=== PATIENT | male | born 1960 | race Caucasian/White ===

== ENCOUNTER 2019-02-10 22:08 | Inpatient (IN) | payer BC ==
[~2019-02-10] VITALS: Ht 190.5 cm; Wt 172.4 kg
--- OUTSIDE RECORDS SUMMARY | 2019-02-10 22:10 | XMS REPORT ---
Author Author [facility] Address Unknown Phone Unavailable Care Team Providers Care Transmission Operator Name Role Phone DR BERTA GRAVES Unavailable Unavailable Problems This patient has no known problems. Allergies, Adverse Reactions, Alerts This patient has no known allergies or adverse reactions. Medications This patient has no known medications. Encounters Start Date/Time End Date/Time Encounter Type Admission Type Attending [facility] Care Facility Care Department Encounter ID 2017-06-10 05:07:00 2017-06-10 09:30:00 Outpatient BERTA STAPLES [facility] [id number] Results Test Description Test Time Test Comments Text Results Atomic Results Result Comments GLUCOMETER GLUCOSE- LAB USE ONLY 2017-06-10 09:49:00 GLUCOMETER (test code=GMG) 116 mg/dL 70-100 Meter ID: [id number]: [id number] SANDRA JESSICA GLUCOMETER GLUCOSE- LAB USE [id number] 05:30:00* Test Item Value Reference Range Comments GLUCOMETER (test code=GMG) 118 mg/dL 70-100 Meter ID: [id number]: [id number] CARL GOETZ
--- NOTE | 2019-02-10 23:45 | Diagnostic Imaging Report ---
FOOT RIGHT COMPLETE - 3 views HISTORY: Pain COMPARISON: None available. FINDINGS: Erosive changes at the fifth tarsometatarsal joint and base of the third and fourth metatarsals. Increased sclerosis of the adjacent metatarsals. Lateral subluxation is seen on frontal view at the level of the proximal second through fifth metatarsals. Soft tissue swelling, especially in the mid and forefoot. Mild emphysema of the dorsal aspect of the forefoot. Plantar calcaneal enthesophyte. Vascular calcifications. IMPRESSION: Erosive changes of the midfoot at the level of the base of the third through fifth metatarsals, concerning for osteomyelitis. There is also lateral subluxation seen on frontal view at the level of the proximal second through fifth metatarsals, concerning for Lisfranc fracture deformity. Signed by: Dr. Catracho Arevalo MD on 02/10/2019 11:42 PM
[2019-02-11] MEDS ORDERED: VANCOMYCIN 1GM/NS 250 ML 250 ML IV STA (00:16)
[2019-02-11] MEDS ORDERED: LEVOFLOXACIN 500MG/D5W 100ML 100 ML IV STA (00:16)
[2019-02-11] MEDS ORDERED: ONDANSETRON HCL INJ 2MG/ML 2ML 2 MG/ML VIAL IV STA (00:16)
[2019-02-11] MEDS ORDERED: MORPHINE SULFATE INJ 4 MG/ML INJ 1ML IV STA (00:16)
[2019-02-11 00:37] LABS: BASOPHILS # (AUTO) 0.1 (0.0-0.1); BASOPHILS % 0.4 % (0.0-1.0); EOSINOPHILS # (AUTO) 0.2 (0.0-0.4); EOSINOPHILS % 1.1 % (0.0-6.0); HEMATOCRIT 40.9 % (38.2-49.6); HEMOGLOBIN 13.3 g/dL (14.0-18.0); LYMPHOCYTES # (AUTO) 1.9 (1.0-3.2); LYMPHOCYTES % 12.5 % (18.0-39.1); MEAN CORPUSCULAR HEMOGLOBIN 27.4 pg (28-32); MEAN CORPUSCULAR HGB CONC 32.5 g/dL (31-35); MEAN CORPUSCULAR VOLUME 84.3 fL (81-99); MONOCYTES # (AUTO) 1.9 (0.2-0.8); NEUTROPHILS # (AUTO) 10.7 (2.1-6.9); NEUTROPHILS % 71.7 % (38.7-80.0); PLATELET COUNT 277 x10e3/uL (140-360); RED BLOOD COUNT 4.85 x10e6/uL (4.3-5.7); RED CELL DISTRIBUTION WIDTH 13.3 % (11.7-14.4)
[2019-02-11] MEDS ORDERED: MORPHINE SULFATE INJ 4 MG/ML INJ 1ML ONE (00:43)
[2019-02-11 00:55] LABS: ANION GAP 17.8 mmol/L (8-16); CALCIUM 10.4 mg/dL (8.4-10.2); CREATININE, SERUM 1.43 mg/dL (0.72-1.25); POTASSIUM 3.8 mmol/L (3.5-5.1)
--- NOTE | 2019-02-11 00:55 | NUR ---
PATIENT STARTED TO C/O OF HAVING SOME ITCHYNESS SECONDARY TO MORPHINE BEING GIVEN, ASKED DR. URRUTIA FOR BENADRYL FOR POSS ADVERSE EFFECTS OF MORPHINE, PT ALSO HAD FEW AREAS OF REDNESS TO SITES WHERE SCRATCHING, VANCOMYCIN STARTED SHORTLY AFTER MORPHINE GIVEN, EKG PERFORMED PT STATED CHEST FEELS FUNNY, AFTER 5 MORE MINIUTES, ITCHYNESS GOT WORSE AND REDNESS BEGAN TO SPREAD TO UP ARM AND DOWN LEFT INNER THIGH AND RLE WELL, VANCOMYCIN IMMEDIATELY STOPPED AND MD AT BEDSIDE FOR POSSIBLE REACTION TO EITHER MORPHINE OR VANCOMYCIN, MD FEELS POSSIBE REACTION TO VANCOMYCIN "RADHA SYNDROME" BUT STATES HAVING DIFFICULTY BREATHING, LIKE UNABLE TO TAKE BREATHS, MD AT BEDSIDE AUSCULTATED CHEST AND NO ADVENTITOUS BREATH SOUNDS NOTED, PT'S CHILLS WORSENING AND BECOMING TACHYPNEIC, ORDER GIVEN FOR SOLU MEDROL 125MG, VITALS STABLE BUT SECONDARY TO RAPID BREATHING AND POOR O2 SAT RECORDING, PT PLACED ON A NON-REBREATHER, SATS IMPROVED IMMEDIATELY, PT MOVED TO ROOM 1 FOR FURTHER EVAL, ALL STAFF IN ROOM WITH PT AND ATIVAN 1MG GIVEN TO SEE IF HELPS WITH CHILLS, VITALS REMAIN STABLE BUT PT STILL STATING LOTS OF CHILLS AND STILL SAYING CHEST HURTS, ADDITIONAL BENADRYL 25MG GIVEN, AFTER APROX 30 MINUTES OF SYMPTOMS TO VANCOMYCIN REACTION, PT MUCH IMPROVED WITH SATS AT 100% ON 2LNC, BP STABLE, AND HR NOT TACHY. WILL CONT TO MONITOR.
[2019-02-11] MEDS ORDERED: DIPHENHYDRAMINE HCL INJ 50 MG/ML VIAL ONE ×2 (01:02→02:00)
[2019-02-11] MEDS ORDERED: METHYLPREDNISOLONE SOD SUCC 125 MG/2ML VIAL ONE (01:27)
[2019-02-11] MEDS ORDERED: FAMOTIDINE 20 MG/2 ML VIAL IV STA (01:28)
[2019-02-11] MEDS ORDERED: SODIUM CHLORIDE 0.9% 500ML 500 ML IV ONE (01:30)
[2019-02-11] MEDS ORDERED: METHYLPREDNISOLONE SOD SUCC 125 MG/2ML VIAL IV ONE (01:30)
[2019-02-11] MEDS ORDERED: ASPIRIN 81 MG CHEW TAB PO ONE (01:45)
[2019-02-11] MEDS ORDERED: LORAZEPAM INJ 2 MG/ML VIAL ONE (01:50)
[2019-02-11 01:56] LABS: INR 1.18; PROTHROMBIN TIME 15.6 seconds (11.9-14.5)
[2019-02-11 01:57] LABS: PARTIAL THROMBOPLASTIN TIME 28.8 seconds (23.8-35.5)
[2019-02-11 02:09] LABS: CREATINE KINASE MB 1.1 ng/mL (0-5.0)
[2019-02-11] MEDS ORDERED: DEXTROSE 50% SYRINGE 50 ML IV PRN (02:15)
--- NOTE | 2019-02-11 02:38 | Diagnostic Imaging Report ---
EXAMINATION: CHEST SINGLE (PORTABLE) INDICATION: ^sob ^[id number] ^0203 ^Y COMPARISON: None FINDINGS: AP view TUBES and LINES: None. LUNGS: Limited by body habitus. Lungs are well inflated. Mild central vascular congestion. PLEURA: No significant pleural effusion or pneumothorax. HEART AND MEDIASTINUM: The cardiomediastinal silhouette is enlarged. BONES AND SOFT TISSUES: No acute osseous lesion. Soft tissues are unremarkable. UPPER ABDOMEN: No free air under the diaphragm. IMPRESSION: Limited study due to body habitus. Enlarged cardiomediastinal silhouette and mild central vascular congestion. Signed by: Dr. Catracho Arevalo MD on 02/11/2019 2:34 AM
[2019-02-11] MEDS ORDERED: LORAZEPAM INJ 2 MG/ML VIAL IV ONE (03:15)
[2019-02-11] MEDS ORDERED: DIPHENHYDRAMINE HCL INJ 50 MG/ML VIAL IV ONE ×2 (03:15)
[2019-02-11] MEDS: LEVOFLOXACIN 500MG/D5W 100ML 100 ML IV SCH (04:05)
--- NOTE | 2019-02-11 04:38 | Diagnostic Imaging Report ---
EXAM: CT Chest WITH contrast (PE Protocol) INDICATION: ^PE PROTOCOL ^[id number] ^0300 ^Y COMPARISON: Same day chest radiograph. TECHNIQUE: Chest was scanned utilizing a multidetector helical scanner from the lung apex through the level of the diaphragm after administration of IV contrast. Thin section reconstructions were obtained with special concentration on the pulmonary arteries. Coronal and sagittal reformations were obtained. Dose modulation, iterative reconstruction, and/or weight based adjustment of the mA/kV was utilized to reduce the radiation dose to as low as reasonably achievable. Pulmonary embolism protocol was performed. IV CONTRAST: 100 mL of Omnipaque 370 COMPLICATIONS: None RADIATION DOSE: Total DLP: 692.53 mGy*cm Estimated effective dose: (DLP x 0.014 x size factor) mSv CTDIvol has been reviewed. It is below the limits set by the Radiation Protocol Committee (RPC). FINDINGS: LINES/ TUBES: None. LUNGS AND AIRWAYS: Limited evaluation due to respiratory motion. No filling defect is identified within the pulmonary arteries to the segmental level. Right lower lobe calcified granuloma (series 3, image 56). There are additional left upper and lower lobe calcified granulomas. Airways are normal. PLEURA: The pleural spaces are clear. HEART AND MEDIASTINUM: The thyroid gland is normal. No mediastinal, hilar or axillary lymphadenopathy. Calcified mediastinal and left hilar lymph nodes. The heart is normal in size.. There is no pericardial effusion. . Main pulmonary artery measures 3.4 cm in diameter and the ascending aorta measures 3.7 cm. UPPER ABDOMEN: Partially seen splenomegaly. Otherwise, unremarkable. BONES: The visualized bony thorax is within normal limits. SOFT TISSUES: Unremarkable. IMPRESSION: No pulmonary emboli. Evidence of prior granulomatous disease. Signed by: Dr. Catracho Arevalo MD on 02/11/2019 4:35 AM
[2019-02-11] MEDS: HYDROMORPHONE 1MG/1ML INJ IV PRN ×5 (05:43→22:59)
[2019-02-11] MEDS: SODIUM CHLORIDE 0.9% 1000ML 1,000 ML IV SCH ×3 (05:43→15:54)
[2019-02-11] MEDS ORDERED: METHYLPREDNISOLONE SOD SUCC 40 MG/ML VIAL 1ML IV SCH (06:00)
[2019-02-11] MEDS ORDERED: DIPHENHYDRAMINE HCL INJ 50 MG/ML VIAL IV SCH (06:00)
[2019-02-11 07:28] VITALS: BP 133/66
[2019-02-11 07:29] VITALS: BP 133/66
[2019-02-11] MEDS: INSULIN REGULAR, HUMAN 100 UNIT/1 ML 3ML VIAL SQ SCH ×4 (07:32→20:36)
--- NOTE | 2019-02-11 08:18 | NUR ---
PT STABLE, RESTING IN BED.
[2019-02-11] MEDS: FAMOTIDINE 20 MG/2 ML VIAL IV SCH ×2 (09:07→15:54)
[2019-02-11] MEDS: MUPIROCIN 2% OINT 22 GM TUBE TOP SCH ×2 (10:25→15:54)
[2019-02-11 10:39] LABS: CREATINE KINASE MB 3.5 ng/mL (0-5.0)
--- NOTE | 2019-02-11 12:00 | NUR ---
dr glass did bedside I&D on rt foot. wound care done.
[2019-02-11] MEDS ORDERED: METHYLPREDNISOLONE SOD SUCC 40 MG/ML VIAL 1ML IV PRN (13:00)
--- NOTE | 2019-02-11 13:33 | Consultation ---
DATE OF CONSULTATION: 02/11/2019 REASON FOR CONSULTATION: Ulceration with the patient being diabetic. HISTORY OF PRESENT ILLNESS: This is a pleasant 58-year-old white male, who is very well known to me, fell approximately several months ago and has a Lisfranc fracture, has a history of diabetic neuropathy with a Charcot foot deformity. The patient developed an ulceration approximately several days ago and started having some fever and chills. Currently, in the hospital, getting IV antibiotics. He denies any history of fever, chills, nausea, or vomiting. PAST MEDICAL HISTORY: Remarkable for insulin-dependent diabetes x10 years. PAST SURGICAL HISTORY: Remarkable for heart catheterization by Dr. Mcnulty 5 weeks ago, has had multiple abdomen surgeries for MRSA. ALLERGIES: TO LATEX, PHENERGAN, AND MORPHINE. CURRENT MEDICATIONS: Include IV levofloxacin and IV vancomycin. SOCIAL HISTORY: Denies any smoking, drinking, or recreational drug use. Lives with his , has 4 kids. FAMILY HISTORY: Remarkable for diabetes. REVIEW OF SYSTEMS: CARDIAC: He is denying any palpitations or arrhythmias. RESPIRATORY: Denies any shortness of breath or productive cough. GASTROINTESTINAL: Denies any diarrhea or constipation. GENITOURINARY: Denies any problems voiding. VITAL SIGNS: Afebrile, pulse rate 80, respirations 18, blood pressure 133/66, and O2 saturation 100%. LABORATORY DATA: Noted, has a white blood cell count of 14.8, hemoglobin 13.3 with a platelet count 277. PHYSICAL EXAMINATION: Podiatric physical examination reveals the following: VASCULATURE: Pedal pulses of both the DP and PT are palpable. CFT to all toes less than 4 seconds. NEUROLOGICAL: Reveals decreased and protective sensation to both lower extremities when utilizing [place] 5.07 monofilament wire. MUSCULOSKELETAL: Reveals muscle mass to be asymmetrical. Some swelling noted to the right foot when compared to the left. Has a grade 3 ulceration, plantar aspect right foot with some drainage noted. DIAGNOSTIC DATA: X-rays reviewed, revealing no gas in the tissue. Has a Lisfranc fracture with lateral deviations of metatarsals 2 through 5 and collapsing of the midtarsal joint. ASSESSMENT: Charcot foot grade 3 ulcer, possible osteo with diabetic neuropathy. PLAN: Sharp excisional debridement of the ulcer was performed down at bedside down to muscle. Devitalized tissue sharply excised until good viable bleeding tissue was achieved. Deep cultures were taken for aerobic and anaerobic growth. The culture tube was probing down to bone and is approximately 2 to 3 cm deep. We will continue local wound care with Bactroban followed by diluted wet-to-dry Betadine b.i.d. Continue antibiotics and treat conservatively for now. LADONNA Pruitt/JOVANNA /[id number]
[2019-02-11 13:55] VITALS: BP 115/65
[2019-02-11] MEDS ORDERED: HYDRALAZINE HCL 20 MG/ML VIAL IV PRN (17:45)
[2019-02-11] MEDS ORDERED: ACETAMINOPHEN 325 MG TAB PO PRN (17:45)
[2019-02-11 18:00] LABS: CREATINE KINASE MB 6.1 ng/mL (0-5.0)
--- NOTE | 2019-02-11 18:38 | NUR ---
pt states he has not voided today. bladder scan shows 575ml, order for 1x straight cath and monitor in 4-6hrs.
[2019-02-11 20:00] VITALS: BP 141/80
[2019-02-11] MEDS: TRAMADOL HCL 50 MG TAB PO PRN (20:30)
[2019-02-11 21:00] VITALS: BP 141/80
[2019-02-11] MEDS ORDERED: LORAZEPAM 0.5 MG TAB PO ONE (21:15)
[2019-02-11 23:14] LABS: BILIRUBIN,URINE NEGATIVE (NEGATIVE); CLARITY,URINE CLOUDY (CLEAR); COLOR,URINE YELLOW (YELLOW); KETONES,URINE NEGATIVE (NEGATIVE); LEUKOCYTE ESTERASE ,URINE NEGATIVE (NEGATIVE); NITRITE,URINE NEGATIVE (NEGATIVE); PROTEIN,URINE DIPSTICK NEGATIVE (NEGATIVE); URINE UROBILINOGEN 0.2 mg/dL (0.2 - 1)
[2019-02-11 23:35] LABS: BACTERIA,URINE MANY /HPF; EPITHELIAL CELLS,URINE FEW /LPF
[2019-02-12] MEDS: VANCOMYCIN 1GM/NS 250 ML 250 ML IV SCH (00:46)
[2019-02-12 01:06] VITALS: BP 125/65
[2019-02-12] MEDS: HYDROMORPHONE 1MG/1ML INJ IV PRN ×6 (01:39→22:50)
[2019-02-12] MEDS: SODIUM CHLORIDE 0.9% 1000ML 1,000 ML IV SCH (01:39)
[2019-02-12] MEDS: LEVOFLOXACIN 500MG/D5W 100ML 100 ML IV SCH (02:15)
[2019-02-12] MEDS: DIPHENHYDRAMINE HCL INJ 50 MG/ML VIAL IV PRN (02:30)
[2019-02-12] MEDS: TRAMADOL HCL 50 MG TAB PO PRN ×2 (04:52→16:10)
[2019-02-12 05:36] LABS: BASOPHILS % 0.1 % (0.0-1.0); HEMOGLOBIN 11.3 g/dL (14.0-18.0); LYMPHOCYTES # (AUTO) 0.2 (1.0-3.2); LYMPHOCYTES % 1.4 % (18.0-39.1); MEAN CORPUSCULAR HEMOGLOBIN 27.8 pg (28-32); MEAN CORPUSCULAR HGB CONC 32.3 g/dL (31-35); MONOCYTES # (AUTO) 0.1 (0.2-0.8); MONOCYTES % 1.2 % (4.4-11.3); NEUTROPHILS # (AUTO) 11.2 (2.1-6.9); NEUTROPHILS % 95.1 % (38.7-80.0); PLATELET COUNT 216 x10e3/uL (140-360); RED BLOOD COUNT 4.07 x10e6/uL (4.3-5.7); RED CELL DISTRIBUTION WIDTH 13.2 % (11.7-14.4)
[2019-02-12 06:31] LABS: ALBUMIN 2.8 g/dL (3.5-5.0); ALBUMIN/GLOBULIN RATIO 0.7 (0.8-2.0); ANION GAP 17.5 mmol/L (8-16); CALCIUM 9.4 mg/dL (8.4-10.2); CREATININE, SERUM 1.36 mg/dL (0.72-1.25); POTASSIUM 4.5 mmol/L (3.5-5.1)
[2019-02-12 07:57] VITALS: BP 158/84
[2019-02-12 07:58] VITALS: BP 158/84
[2019-02-12] MEDS: INSULIN REGULAR, HUMAN 100 UNIT/1 ML 3ML VIAL SQ SCH ×4 (07:59→21:19)
[2019-02-12] MEDS: OLMESARTAN 20 MG TAB PO SCH (08:09)
[2019-02-12] MEDS: FUROSEMIDE 40 MG TAB PO SCH (08:09)
[2019-02-12] MEDS: FAMOTIDINE 20 MG/2 ML VIAL IV SCH ×2 (08:09→17:30)
[2019-02-12] MEDS: MUPIROCIN 2% OINT 22 GM TUBE TOP SCH ×2 (08:10→17:46)
[2019-02-12] MEDS: PREGABALIN 75 MG CAP PO SCH ×2 (08:10→17:30)
--- NOTE | 2019-02-12 08:20 | NUR ---
WOUND CARE CONSULT 58 YO MALE HX OF DIABETES, CHARCOT FOOT, OSTEOMYELITIS RODRIGO 17 ON MODERATE PUP AND VISCO SURFACE LABS: WBC- 14.89,HGB- 13.3, GLUCOSE- 327 RIGHT FOOT X-RAY IMPRESSION MID FOOT FRACTURE DEFORMITY AND OSTEOMYELITIS WOUND CULTURE AND BLOOD CULTURE PENDING DR CURRY PERFORMED BEDSIDE DEBRIDEMENT 02/11/2019 AND PRESCRIBED TREATMENT OF RT FOOT ULCERATION SKIN ASSESSMENT DONE PATIENT PRESENTS WITH RIGHT FOOT PLANTAR ULCERATION 2CM X 2.5CM TRACTS 3CM HAS CALLUSED EDGES WITH SOME MACERATION PRESENT WILFRIDO SKIN PINK AND BLANCHABLE RECOMMENDATIONS: NURSING TO CONTINUE TO MAINTAIN MODERATE PUP STATUS AND INTERVENTIONS NURSING TO CONTINUE TO ASSIST PATIENT OUT OF BED FOR MEALS AND MUCH TOLERATED IF MACERATION TO WOUND EDGES CONTINUES MAY CONSIDER USAGE OF SILVER ALGINATE FOR ANTIMICROBIAL AND MOISTURE MANAGEMENT NEEDS PATIENT MAY BENEFIT FROM HYPERBARIC OXYGEN THERAPY FOR CHRONIC OSTEOMYELITIS Addendum: 02/12/19 at 0853 by Tor Meyers RN Amended: Links added.
[2019-02-12] MEDS ORDERED: OLMESARTAN MEDOXOMIL 5 MG TABLET PO SCH (09:00)
[2019-02-12] MEDS ORDERED: HYDROCHLOROTHIAZIDE 25 MG TAB PO SCH (09:00)
--- NOTE | 2019-02-12 14:08 | Diagnostic Imaging Report ---
Chest, portable AP view History: PICC placement Comparison: 02/11/2019 IMPRESSION: Left upper extremity PICC tip terminates in in the distal SVC. The cardiac silhouette is stably enlarged. There is mild vascular congestion. No focal consolidation or pneumothorax. Signed by: Tavo Savage MD on 02/12/2019 2:05 PM
--- NOTE | 2019-02-12 14:13 | Progress Note ---
DATE: 02/12/2019 SUBJECTIVE: The patient is doing better. Still has a lot of swelling to the right lower extremity and some drainage, right foot. Denies any history of fever, chills, nausea, or vomiting. OBJECTIVE: VITAL SIGNS: Afebrile, pulse rate 85, respirations 18, blood pressure 158/84, and O2 saturation 98%. EXTREMITIES: Right foot ulceration looking better. Some granulation tissue noted, tracking down to bone. Some drainage present. Moderate amount of swelling compared to contralateral side with edema radiating up the leg. Blood cultures were negative for any growth. Wound cultures still pending. Ulceration to the right foot is looking better, approximately 2.5 cm in diameter. Some granulation tissue noted and some necrosis also pressing down to bone. LABORATORY DATA: Labs show white blood cell count dropping to 11.78. ASSESSMENT: Grade 4 ulcer, possible osteo Charcot foot, diabetic neuropathy. PLAN: We will need IV antibiotics for at least 4 to 6 weeks. We will continue IV levofloxacin. The patient had a reaction to vancomycin and was discontinued. The patient will be seen by Dr. Lara for substitution of vancomycin. We will continue to treat conservatively with Bactroban, followed by diluted wet-to-dry Betadine. Continue offloading. We will continue to follow. LADONNA Pruitt/JOVANNA /[id number]
[2019-02-12 16:10] VITALS: BP 149/85
[2019-02-12] MEDS ORDERED: CEFTRIAXONE SOD 2 GM/NS 100 ML 100 ML IV SCH (16:30)
[2019-02-12] MEDS: INSULIN GLARGINE 100 UNITS/ML VIAL SQ SCH (17:00)
[2019-02-12] MEDS: ENOXAPARIN 30 MG/0.3 ML SYR SC SCH (17:30)
[2019-02-12 20:00] VITALS: BP 130/67
[2019-02-12 21:00] VITALS: BP 130/67
[2019-02-12] MEDS ORDERED: LORAZEPAM 0.5 MG TAB PO ONE (22:15)
--- NOTE | 2019-02-12 23:42 | Consultation ---
DATE OF CONSULTATION: REASON FOR CONSULTATION: Infection of right foot, osteomyelitis. HISTORY OF PRESENT ILLNESS: He is a very pleasant 58-year-old white male with history of obesity, diabetes mellitus, hypertension, neuropathy, and Charcot joint. The patient who has been having new boot on his foot for the last month or so, couple weeks ago underwent cardiac catheterization and they went from his right femoral area. A few days later, there was redness and swelling of the foot with ulcer and pus draining. The patient was admitted for I and D. The patient is currently lying in bed comfortably. He is telling me he was having fever and chills when he first came here. PAST MEDICAL HISTORY: Diabetes mellitus, obesity, hypertension, coronary artery disease, neuropathy, and Charcot joint. PAST SURGICAL HISTORY: Bilateral knee surgeries. ALLERGIES: PENICILLIN. SOCIAL HISTORY: There is no smoking, drug abuse, or alcohol abuse. FAMILY HISTORY: Otherwise, hypertension. REVIEW OF SYSTEMS: HEENT: Negative. PULMONARY: Negative. CARDIAC: Negative. : Negative. GI: Negative. SKIN: There are no other rashes. PHYSICAL EXAMINATION: GENERAL: He is currently alert, oriented, does not seem to be in acute distress. VITAL SIGNS: Stable, currently afebrile. HEENT: He is not icteric. NECK: Supple. CHEST: Clear bilateral. HEART: S1 and S2. No murmur. ABDOMEN: Soft, obese. FOOT: There is redness and erythema. There is an ulcer noted at the base of the foot. IMPRESSION: 1. Osteomyelitis of the foot. Recommend an MRI of the foot with and without contrast, sedimentation rate, C-reactive protein, PICC line placement. Agree with vancomycin. We will try Rocephin. The patient said he has a rash with penicillin. 2. Obtain sedimentation rate and C-reactive protein. 3. Surgery to be in per Podiatry. 4. We will arrange 6-8 weeks of IV antibiotic. 5. History of fever and chills. We will get blood cultures, which is still pending. We will get an echocardiogram. We will discuss with Internal Medicine. We will follow. Thank you for asking me to see this patient. Discussed with the patient at length. Answered all their questions. MD CHELY Davis/JOVANNA /[id number]
[2019-02-13] VITALS (7 sets, daily range): BP systolic 122–156; BP diastolic 66–80
--- NOTE | 2019-02-13 00:21 | NUR ---
Notified DR Lara of pt's allergy to vancomycin, he said ok to administer vancomycin and to give benadryl before each dose. Pt is aware is and he is ok with it.
[2019-02-13] MEDS: DIPHENHYDRAMINE HCL INJ 50 MG/ML VIAL IV PRN (00:38)
[2019-02-13] MEDS: VANCOMYCIN 1GM/NS 250 ML 250 ML IV SCH (00:38)
[2019-02-13] MEDS: LEVOFLOXACIN 500MG/D5W 100ML 100 ML IV SCH (02:18)
[2019-02-13] MEDS: HYDROMORPHONE 1MG/1ML INJ IV PRN ×4 (04:21→22:13)
[2019-02-13 05:07] LABS: BASOPHILS % 0.1 % (0.0-1.0); EOSINOPHILS % 0.2 % (0.0-6.0); HEMATOCRIT 32.1 % (38.2-49.6); HEMOGLOBIN 10.5 g/dL (14.0-18.0); LYMPHOCYTES # (AUTO) 0.8 (1.0-3.2); LYMPHOCYTES % 9.3 % (18.0-39.1); MEAN CORPUSCULAR HEMOGLOBIN 27.6 pg (28-32); MEAN CORPUSCULAR HGB CONC 32.7 g/dL (31-35); MEAN CORPUSCULAR VOLUME 84.5 fL (81-99); MONOCYTES # (AUTO) 0.6 (0.2-0.8); MONOCYTES % 7.2 % (4.4-11.3); NEUTROPHILS % 82.3 % (38.7-80.0); PLATELET COUNT 213 x10e3/uL (140-360); RED CELL DISTRIBUTION WIDTH 13.5 % (11.7-14.4)
[2019-02-13 05:23] LABS: ANION GAP 13.7 mmol/L (8-16); BLOOD UREA NITROGEN 32 mg/dL (7-26); BUN/CREATININE RATIO 34 (6-25); CARBON DIOXIDE 24 mmol/L (22-29); CHLORIDE 101 mmol/L (98-107); CREATININE, SERUM 0.95 mg/dL (0.72-1.25); EST GLOMERULAR FILTRATION RATE > 60 ML/MIN (60-); GLUCOSE 96 mg/dL (74-118); POTASSIUM 3.7 mmol/L (3.5-5.1); SODIUM 135 mmol/L (136-145)
--- NOTE | 2019-02-13 07:00 | NUR ---
Pt received resting in bed. Alert and oriented x4. Oriented to staff and surroundings. Encouraged to press call quiroga if help needed. Emotional support given. Call quiroga within reach. Will monitor
[2019-02-13] MEDS: INSULIN REGULAR, HUMAN 100 UNIT/1 ML 3ML VIAL SQ SCH ×4 (07:28→22:11)
--- NOTE | 2019-02-13 07:55 | NUR ---
Pt requested for pain medication via IV (Dilaudid). Advised pt that Medication was changed to Q6hrs. Will give next dose when due
[2019-02-13] MEDS: FAMOTIDINE 20 MG/2 ML VIAL IV SCH ×2 (08:12→16:06)
[2019-02-13] MEDS: FUROSEMIDE 40 MG TAB PO SCH (08:12)
[2019-02-13] MEDS: ALPRAZOLAM 0.5 MG TAB PO PRN (08:12)
[2019-02-13] MEDS: OLMESARTAN 20 MG TAB PO SCH (08:12)
[2019-02-13] MEDS: PREGABALIN 75 MG CAP PO SCH ×2 (08:12→16:07)
[2019-02-13] MEDS: INSULIN GLARGINE 100 UNITS/ML VIAL SQ SCH ×2 (08:13→17:49)
[2019-02-13] MEDS: TRAMADOL HCL 50 MG TAB PO PRN ×2 (08:13→19:14)
--- NOTE | 2019-02-13 09:15 | Diagnostic Imaging Report ---
TECHNIQUE: Computed tomography imaging of the RIGHT foot was performed WITHOUT injected contrast. Dose modulation, iterative reconstruction, and/or weight based adjustment of the mA/kV was utilized to reduce the radiation dose to as low as reasonably achievable. HISTORY: Pain, osteomyelitis COMPARISON: None available. DISCUSSION: Soft tissue ulceration of the plantar foot and diffuse swelling. Multiple foci of soft tissue gas within the midfoot at the plantar and dorsal surface. Charcot arthropathy of the midfoot with with collapse. Greater than expected erosive change involving the metatarsal bases, cuneiforms, navicular, and cuboid. No well-defined fluid collection, however phlegmonous change likely throughout the midfoot. IMPRESSION: Charcot arthropathy of the midfoot with superimposed osteomyelitis. Foci of soft tissue gas suggests anaerobic component. Signed by: Dr. Umberto Dinh M.D. on 02/13/2019 9:11 AM
[2019-02-13] MEDS: ONDANSETRON HCL INJ 2MG/ML 2ML 2 MG/ML VIAL IV PRN ×2 (10:00→16:00)
--- NOTE | 2019-02-13 11:41 | Progress Note ---
DATE: 02/13/2019 SUBJECTIVE: The patient is seen at bedside, doing better. Decreased swelling. Denies any history of fever, chills, nausea, or vomiting. Still having some discomfort to the right lower extremity. OBJECTIVE: VITAL SIGNS: Afebrile, pulse rate 65, respirations 15, blood pressure 142/80, and O2 saturation 98%. EXTREMITIES: Still has some swelling of the right foot with increased skin temperature. Some drainage through the ulceration, which is tracking down to bone. LABORATORY DATA: Labs show white blood cell count dropping down to 8.5. ASSESSMENT: Charcot foot, possible osteomyelitis with grade 4 ulceration. PLAN: We will continue local wound care. Continue IV antibiotics. We will continue to follow. The patient was informed that he will need at least 4 to 6 more weeks of IV antibiotics and will need to continue wearing his [employer] walking boot. LADONNA Pruitt/JOVANNA /[id number]
[2019-02-13] MEDS: MUPIROCIN 2% OINT 22 GM TUBE TOP SCH ×2 (12:24→16:07)
[2019-02-13] MEDS ORDERED: METFORMIN HCL500 MG PO (12:32)
[2019-02-13] MEDS ORDERED: MELOXICAM7.5 MG PO (12:32)
[2019-02-13] MEDS ORDERED: METOPROLOL TART25 MG PO (12:32)
[2019-02-13] MEDS ORDERED: LASIX40 MG PO (12:32)
[2019-02-13] MEDS ORDERED: LYRICA75 MG PO (12:32)
[2019-02-13] MEDS ORDERED: LANTUS 3ML100 UNITS/ SC (12:32)
[2019-02-13] MEDS ORDERED: COZAAR25 MG PO (12:32)
[2019-02-13] MEDS ORDERED: HYDROCHLOROTHIA25 MG PO (12:32)
[2019-02-13] MEDS ORDERED: AMLODIPINE BESY10 MG PO (12:32)
--- NOTE | 2019-02-13 12:43 | NUR ---
Attempted to do right foot dressing change. Pt refused stating that he just did it. Emotional support given. Will monitor
[2019-02-13] MEDS: MEROPENEM 1GM 100 ML IV SCH ×2 (14:23→22:21)
[2019-02-13] MEDS: ENOXAPARIN 30 MG/0.3 ML SYR SC SCH (16:07)
--- NOTE | 2019-02-13 18:17 | NUR ---
Dressing change done. Emotional support given. Advised pt to keep wearing Boot to right leg/foot as directed. Will endorse to next shift
--- NOTE | 2019-02-13 18:32 | NUR ---
Pt stated the he did not like how nurse did dressing. Pt removed dressing and changed right foot dressing himself
[2019-02-14] VITALS (7 sets, daily range): BP systolic 127–162; BP diastolic 44–89
[2019-02-14] MEDS: DIPHENHYDRAMINE HCL INJ 50 MG/ML VIAL IV PRN (00:58)
[2019-02-14] MEDS: VANCOMYCIN 1GM/NS 250 ML 250 ML IV SCH (00:58)
[2019-02-14] MEDS: TRAMADOL HCL 50 MG TAB PO PRN ×2 (01:14→14:43)
--- NOTE | 2019-02-14 03:15 | NUR ---
pt said BG felt to be low, fingerstick read 73, pt given crackers and orange juice. Will continue to monitor.
[2019-02-14 03:53] LABS: BASOPHILS % 0.2 % (0.0-1.0); EOSINOPHILS # (AUTO) 0.1 (0.0-0.4); EOSINOPHILS % 1.2 % (0.0-6.0); HEMATOCRIT 36.1 % (38.2-49.6); HEMOGLOBIN 11.9 g/dL (14.0-18.0); LYMPHOCYTES # (AUTO) 1.2 (1.0-3.2); LYMPHOCYTES % 13.9 % (18.0-39.1); MEAN CORPUSCULAR VOLUME 84.9 fL (81-99); MONOCYTES # (AUTO) 1.3 (0.2-0.8); MONOCYTES % 15.2 % (4.4-11.3); NEUTROPHILS # (AUTO) 5.7 (2.1-6.9); NEUTROPHILS % 68.8 % (38.7-80.0); PLATELET COUNT 230 x10e3/uL (140-360); RED BLOOD COUNT 4.25 x10e6/uL (4.3-5.7); RED CELL DISTRIBUTION WIDTH 13.4 % (11.7-14.4)
[2019-02-14 04:06] LABS: BLOOD UREA NITROGEN 29 mg/dL (7-26); BUN/CREATININE RATIO 25 (6-25); CALCIUM 8.9 mg/dL (8.4-10.2); CARBON DIOXIDE 24 mmol/L (22-29); CHLORIDE 103 mmol/L (98-107); CREATININE, SERUM 1.16 mg/dL (0.72-1.25); EST GLOMERULAR FILTRATION RATE > 60 ML/MIN (60-); GLUCOSE 64 mg/dL (74-118); MAGNESIUM 1.4 MG/DL (1.3-2.1); SODIUM 138 mmol/L (136-145)
[2019-02-14] MEDS: HYDROMORPHONE 1MG/1ML INJ IV PRN ×4 (04:34→23:01)
[2019-02-14] MEDS: MEROPENEM 1GM 100 ML IV SCH ×3 (06:04→21:09)
[2019-02-14] MEDS: INSULIN REGULAR, HUMAN 100 UNIT/1 ML 3ML VIAL SQ SCH ×4 (07:44→21:09)
[2019-02-14] MEDS: INSULIN GLARGINE 100 UNITS/ML VIAL SQ SCH ×2 (09:00→17:00)
[2019-02-14] MEDS: MUPIROCIN 2% OINT 22 GM TUBE TOP SCH ×2 (09:12→15:56)
[2019-02-14] MEDS: FAMOTIDINE 20 MG/2 ML VIAL IV SCH ×2 (09:27→16:58)
--- NOTE | 2019-02-14 10:40 | NUR ---
pt arrived on unit from [facility]; pt awake, alert, oriented, no signs of distress. pt able to transfer independently from wheelchair to bed. bed locked and in lowest position.
--- NOTE | 2019-02-14 11:00 | NUR ---
PATIENT TRANSFERRED TO MED-SURG 3 HANDOFF REPORT GIVEN TO NURSE ROBBIN RN, NURSE MADE AWARE PATIENT REQUIRES BENADRYL PRIOR TO VANCOMYCIN ADMINISTRATION.
[2019-02-14] MEDS ORDERED: SODIUM CHLORIDE 0.9% 250ML 250 ML ONE ×2 (14:10→21:01)
--- NOTE | 2019-02-14 14:15 | NUR ---
wound dressing change completed per Dr Leblanc's orders.
[2019-02-14] MEDS: PREGABALIN 75 MG CAP PO SCH (16:55)
[2019-02-14] MEDS: ENOXAPARIN 30 MG/0.3 ML SYR SC SCH (16:59)
--- NOTE | 2019-02-14 19:13 | NUR ---
Received bedside report from day nurse. Patient resting in bed, no s/s of distress or c/o pain at this time. All safety measures in place. Family at bedside. Will continue to monitor.
--- NOTE | 2019-02-14 20:47 | Progress Note ---
DATE: 02/14/2019 SUBJECTIVE: The patient at bedside, doing well. Denies any history of fever, chills, nausea, or vomiting. Still has some swelling to the right foot with increased skin temperature. OBJECTIVE: VITAL SIGNS: Afebrile, pulse rate 83, respirations 18, blood pressure 127/63, and O2 saturation 97%. LABORATORY DATA: Labs show white blood cell count of 8.25, hemoglobin 9.9. Ulceration noted to the right foot, healing slowly tracking to bone, some drainage present. Crepitation felt secondary to Lisfranc injury/Charcot deformity to the mid foot aspect of the right lower extremity. Negative foul smell with positive periwound cellulitis present. ASSESSMENT: Grade 4 ulcer, Charcot foot, possible osteo. PLAN: We will continue IV antibiotics. Continue local wound care. Treat conservatively, seems to be responding. The patient instructed he will need to be in the [employer] walking boot for the next 6-8 weeks to allow for bony consolidation or put in a nonweightbearing cast for 6 weeks once the ulceration heals. LADONNA Pruitt/JOVANNA /[id number]
--- NOTE | 2019-02-14 23:43 | NUR ---
Patient reports feeling sweaty and shaky. Performed fingerstick glucose test with results of 76. Provided orange juice. Will continue to monitor patient.
[2019-02-15] VITALS (7 sets, daily range): BP systolic 95–162; BP diastolic 44–74
[2019-02-15] MEDS: VANCOMYCIN 1GM/NS 250 ML 250 ML IV SCH ×2 (01:58→14:07)
[2019-02-15] MEDS: DIPHENHYDRAMINE HCL INJ 50 MG/ML VIAL IV PRN ×2 (01:58→14:31)
[2019-02-15] MEDS: MEROPENEM 1GM 100 ML IV SCH ×3 (05:08→22:00)
[2019-02-15] MEDS: HYDROMORPHONE 1MG/1ML INJ IV PRN ×4 (05:08→23:52)
[2019-02-15 05:15] LABS: BASOPHILS % 0.6 % (0.0-1.0); EOSINOPHILS # (AUTO) 0.1 (0.0-0.4); EOSINOPHILS % 1.7 % (0.0-6.0); HEMATOCRIT 33.8 % (38.2-49.6); LYMPHOCYTES % 14.7 % (18.0-39.1); MEAN CORPUSCULAR HEMOGLOBIN 27.4 pg (28-32); MEAN CORPUSCULAR HGB CONC 32.5 g/dL (31-35); MEAN CORPUSCULAR VOLUME 84.3 fL (81-99); MONOCYTES # (AUTO) 0.7 (0.2-0.8); MONOCYTES % 9.5 % (4.4-11.3); NEUTROPHILS % 71.2 % (38.7-80.0); PLATELET COUNT 199 x10e3/uL (140-360); RED BLOOD COUNT 4.01 x10e6/uL (4.3-5.7); RED CELL DISTRIBUTION WIDTH 13.2 % (11.7-14.4)
[2019-02-15 05:37] LABS: ANION GAP 14.2 mmol/L (8-16); BLOOD UREA NITROGEN 19 mg/dL (7-26); BUN/CREATININE RATIO 21 (6-25); CARBON DIOXIDE 23 mmol/L (22-29); CHLORIDE 103 mmol/L (98-107); CREATININE, SERUM 0.89 mg/dL (0.72-1.25); EST GLOMERULAR FILTRATION RATE > 60 ML/MIN (60-); GLUCOSE 118 mg/dL (74-118); POTASSIUM 4.2 mmol/L (3.5-5.1); SODIUM 136 mmol/L (136-145)
--- NOTE | 2019-02-15 07:05 | NUR ---
walking rounds completed, change of shift report received from night auditor RN. pt awake, alert, no s/s distress, speaking full sentences, no shaking or chills; pt in stable condition.
[2019-02-15] MEDS: INSULIN REGULAR, HUMAN 100 UNIT/1 ML 3ML VIAL SQ SCH ×4 (07:30→21:00)
[2019-02-15] MEDS: FAMOTIDINE 20 MG/2 ML VIAL IV SCH ×2 (08:35→17:07)
[2019-02-15] MEDS: PREGABALIN 75 MG CAP PO SCH ×2 (08:35→17:07)
[2019-02-15] MEDS: INSULIN GLARGINE 100 UNITS/ML VIAL SQ SCH ×2 (08:36→17:08)
[2019-02-15] MEDS: ALPRAZOLAM 0.5 MG TAB PO PRN (08:47)
[2019-02-15] MEDS: TRAMADOL HCL 50 MG TAB PO PRN ×3 (08:47→21:45)
[2019-02-15] MEDS: MUPIROCIN 2% OINT 22 GM TUBE TOP SCH ×2 (09:00→14:07)
--- NOTE | 2019-02-15 14:01 | NUR ---
dressing change completed per Dr Leblanc's orders.
--- NOTE | 2019-02-15 14:12 | NUR ---
Dr. Leblanc at bedside performing wound debridement of right foot.
[2019-02-15] MEDS: ENOXAPARIN 30 MG/0.3 ML SYR SC SCH (17:07)
--- NOTE | 2019-02-15 20:00 | NUR ---
INITIAL ASSESSMENT COMPLETE, RIGHT FOOT WITH DRESSING INTACT, MINIMAL DRAINAGE NOTED ON THE DRESSING, FOOT ELEVATED ON PILLOW, RIGHT UPPER ARM PICC IN PLACE, FLUSH ONE SIDE ONLY, NO DISTRESS NOTED, VS STABLE, CALL LIGHT IN REACH
[2019-02-15] MEDS ORDERED: ACETAMINOPHEN/CODEINE 300MG - 30MG TAB PO PRN (20:30)
--- NOTE | 2019-02-15 22:10 | Progress Note ---
DATE: 02/15/2019 SUBJECTIVE: The patient at bedside, doing well. Decreased discomfort to the right lower extremity. Denies any history of fever, chills, nausea, or vomiting. OBJECTIVE: VITAL SIGNS: Afebrile, pulse rate 73, respirations 18, blood pressure 142/66, and O2 saturation 97%. LABORATORY DATA: Labs show white blood cell count of 7.06. He has cellulitis with increased skin temperature to the right foot with an ulcer tracking down to bone, some drainage still present. The ulcer is 2 to 2.5 cm in diameter with some necrosis noted down to bone. ASSESSMENT: Grade 4 ulcer, osteomyelitis, Charcot foot with diabetic neuropathy and edema with a Lisfranc injury. PLAN: Under no anesthesia due to his peripheral neuropathy, sharp excisional debridement of the ulcer was carried down to bone. Devitalized tissue was sharply excised. Bone was scraped via sharp dissection utilizing a sterile 10 blade, good bleeding tissue was achieved. A sterile dressing was applied followed by Bactroban, followed by diluted wet-to-dry Betadine. We will continue IV antibiotics and local wound care until swelling and erythema subsides. LADONNA Pruitt/JOVANNA /[id number]
[2019-02-16] VITALS: BP 136/66
[2019-02-16] MEDS: VANCOMYCIN 1GM/NS 250 ML 250 ML IV SCH ×2 (02:00→15:00)
[2019-02-16] MEDS: DIPHENHYDRAMINE HCL INJ 50 MG/ML VIAL IV PRN ×2 (02:26→14:57)
[2019-02-16] MEDS: MEROPENEM 1GM 100 ML IV SCH ×3 (06:00→21:10)
[2019-02-16 07:30] VITALS: BP 127/60
[2019-02-16] MEDS: INSULIN REGULAR, HUMAN 100 UNIT/1 ML 3ML VIAL SQ SCH ×4 (07:30→20:56)
--- NOTE | 2019-02-16 07:30 | NUR ---
PATINE IN BED WITH HEAD OF BED ELEVATED TALKING ON THE PHONE, NO DISTRESS NOTED. DRESSING TO RIGHT FOOT WITH MODERATE AMOUNT OF DRAINAGE. BED IN LOWER POSITION, CALL LIGHT AT REACH.
[2019-02-16 08:02] VITALS: BP 127/60
[2019-02-16] MEDS: INSULIN GLARGINE 100 UNITS/ML VIAL SQ SCH ×2 (08:55→17:17)
[2019-02-16] MEDS: PREGABALIN 75 MG CAP PO SCH ×2 (09:08→17:04)
[2019-02-16] MEDS: FAMOTIDINE 20 MG/2 ML VIAL IV SCH ×2 (09:08→17:04)
[2019-02-16 11:09] VITALS: BP 149/67
[2019-02-16] MEDS: MUPIROCIN 2% OINT 22 GM TUBE TOP SCH ×2 (11:15→18:45)
[2019-02-16] MEDS: HYDROMORPHONE 1MG/1ML INJ IV PRN ×2 (11:20→20:10)
--- NOTE | 2019-02-16 11:22 | NUR ---
DRESSING CHANGED TO RIGHT FOOT ORDERED. C/O PAIN AND MEDICATED ORDERED. IN BED WITH CALL LIGHT AT REACH.
--- NOTE | 2019-02-16 13:20 | Consultation ---
DATE OF CONSULTATION: 02/16/2019 SUBJECTIVE: The patient is seen at bedside, doing a little bit better. Decreased swelling to the right foot after the bedside debridement of the ulcer was performed yesterday. OBJECTIVE: VITAL SIGNS: Afebrile, pulse rate 67, respirations 19, blood pressure 127/60, O2 saturation 97%. EXTREMITIES: Ulceration to the right foot is getting a little bit better, still some drainage. Negative foul smell tracking to bone approximately 2.5 cm in diameter of ulcer. There was some bloody stripe through the dressing. Some crepitation secondary to his Lisfranc injury and Charcot foot overlying the midtarsal joint area. ASSESSMENT: Fractured foot, osteomyelitis, right foot, diabetic neuropathy with a grade 4 ulceration. PLAN: We will continue local wound care. Continue IV antibiotics. Continue offloading as best as possible. LADONNA Pruitt/JOVANNA /[id number]
[2019-02-16 15:14] VITALS: BP 181/81
--- NOTE | 2019-02-16 15:17 | NUR ---
MD IN TO SEE PATIENT, NO NEW ORDER RECEIVED.
--- NOTE | 2019-02-16 16:52 | Progress Note ---
DATE: SUBJECTIVE: Mr. Ayala who is doing better. There is no new complaints, status post debridement yesterday of his right foot, which was done at the bedside. The abscess was apparently deep to the bone. There is packing and dressing right now. He is going for another surgery tomorrow probably. The cultures have remained negative. REVIEW OF SYSTEMS: HEENT: Negative. PULMONARY: Negative. CARDIAC: Negative. : Negative. SKIN: There is no rash. EXTREMITIES: He is having pain in his right foot. LABORATORY DATA: His laboratory data showed white count 7.06, hemoglobin 11. His sodium was 136, potassium 4.2, creatinine 0.89. PHYSICAL EXAMINATION: GENERAL: He is currently alert, oriented, does not seem to be in acute distress. VITAL SIGNS: Stable, currently afebrile. HEENT: Not icteric. NECK: Supple. CHEST: Clear. Heart: S1 and S2. ABDOMEN: Soft and obese. IMPRESSION: 1. Osteomyelitis and abscess, status post debridement. Culture is still pending on meropenem and vancomycin for morbidly obese patient. 2. Diabetes mellitus with neuropathy and Charcot joint. 3. Hypertension. PLAN: Plan of 8 weeks of intravenous antibiotic. He is currently on vancomycin and meropenem. We will arrange for that. We are waiting for insurance approval. He is going to have a new debridement tomorrow. We will follow with you. Discussed with the patient. Answered all his question. MD CHELY Davis/JOVANNA /[id number]
[2019-02-16] MEDS: ENOXAPARIN 30 MG/0.3 ML SYR SC SCH (17:04)
[2019-02-16] MEDS ORDERED: HYDROMORPHONE 1MG/1ML INJ IV PRN (17:15)
--- NOTE | 2019-02-16 18:57 | NUR ---
Nutrition Screen Note RD Recommendation for Physician: -Continue ADA diet Plan of Care: RD following, monitoring for tolerance and adequacy Nutrition reason for involvement: Length of stay Primary Diagnose(s): osteomyelitis of ankle or right foot PMH: diabetes Ht: 75 in Wt:380 lb BMI: 47.5 kg/m2 IBW:[address] Assessment: (02/16/19) Chart reviewed. Labs and meds reviewed. Pt is a 58 year old male admitted with osteomyelitis of ankle or right foot. Pt reports a good appetite and has been eating all of his meals. Consumption of 75-100% of meals recorded in chart. No wt loss reported and pt usually weighs 375 lbs. No N/V, but pt mentioned diarrhea yesterday. No chewing/swallowing issues. Will continue to monitor. Current Diet: 1800 kcal ADA diet Malnutrition Evaluation (02/16/19) The patient does not meet criteria for a specified degree of malnutrition at this time. Will re-evaluate at follow-up as appropriate. Diet Education Needs Assessment: Pt was not interested in diet education at time of visit. Nutrition Care Level: low Signed: Luana Camacho, RD, LD
[2019-02-16] MEDS ORDERED: HYDROCODONE/APAP 10MG-325MG TAB PO PRN (19:00)
--- NOTE | 2019-02-16 19:00 | NUR ---
Dr Wright on the floor to see patient. Orders written and completed.
--- NOTE | 2019-02-16 19:24 | NUR ---
Received change of shift report from AM. Walking rounds completed.
[2019-02-16 20:00] VITALS: BP 148/65
[2019-02-16] MEDS: ONDANSETRON HCL INJ 2MG/ML 2ML 2 MG/ML VIAL IV PRN (20:11)
[2019-02-17] VITALS (8 sets, daily range): BP systolic 126–146; BP diastolic 62–86
[2019-02-17] MEDS: VANCOMYCIN 1GM/NS 250 ML 250 ML IV SCH (02:00)
[2019-02-17] MEDS: ONDANSETRON HCL INJ 2MG/ML 2ML 2 MG/ML VIAL IV PRN (02:16)
[2019-02-17] MEDS: HYDROMORPHONE 1MG/1ML INJ IV PRN ×3 (02:16→16:35)
[2019-02-17] MEDS: DIPHENHYDRAMINE HCL INJ 50 MG/ML VIAL IV PRN ×2 (02:35→14:45)
--- NOTE | 2019-02-17 04:00 | NUR ---
Patient c/o anxiety. Meds given as ordered by .
[2019-02-17] MEDS: ALPRAZOLAM 0.5 MG TAB PO PRN (04:59)
[2019-02-17] MEDS: MEROPENEM 1GM 100 ML IV SCH (05:37)
[2019-02-17] MEDS ORDERED: TYLENOL # 31 EA PO (06:02)
--- NOTE | 2019-02-17 06:03 | NUR ---
Patient resting quitly at this time.
[2019-02-17] MEDS: INSULIN REGULAR, HUMAN 100 UNIT/1 ML 3ML VIAL SQ SCH ×4 (07:30→21:00)
[2019-02-17] MEDS: PREGABALIN 75 MG CAP PO SCH ×2 (08:42→17:20)
[2019-02-17] MEDS: FAMOTIDINE 20 MG/2 ML VIAL IV SCH ×2 (08:42→17:20)
[2019-02-17] MEDS: INSULIN GLARGINE 100 UNITS/ML VIAL SQ SCH ×2 (08:43→17:20)
[2019-02-17] MEDS: MUPIROCIN 2% OINT 22 GM TUBE TOP SCH ×2 (09:00→16:35)
[2019-02-17] MEDS ORDERED: DAPTOMYCIN 500mg 10ML 1,000 MG in SODIUM CHLORIDE 0.9% 100 ML IV SCH (11:00)
[2019-02-17] MEDS: HYDROCODONE/APAP 10MG-325MG TAB PO PRN ×2 (14:15→21:55)
--- NOTE | 2019-02-17 16:09 | Progress Note ---
DATE: 02/17/2019 SUBJECTIVE: The patient is seen at bedside, accompanied by Dr. Wright's PA. Still has some erythema and edema to right lower extremity, but denies any history of fever, chills, nausea, or vomiting. OBJECTIVE: VITAL SIGNS: Afebrile, pulse 83, respirations 20, blood pressure 130/86, and O2 saturation 97%. EXTREMITIES: Ulceration to the right lower extremity looking better. Decreased drainage. Negative foul smell. Still increasing skin temperature and edema right foot when compared to the left. Ulcer measuring 2 cm in diameter, tracking down to bone. ASSESSMENT: Charcot foot, osteo, Lisfranc injury, right lower extremity with diabetic neuropathy. PLAN: We will continue IV antibiotics. The patient may be going home tomorrow. Instructed he will not be able to walk without the aid of the [employer] walking boot at all, otherwise he can end up losing his leg. We will continue local wound care. Continue offloading. We will continue to follow. LADONNA Pruitt/JOVANNA /[id number]
[2019-02-17] MEDS: ENOXAPARIN 30 MG/0.3 ML SYR SC SCH (17:20)
--- NOTE | 2019-02-17 20:00 | NUR ---
Received change of shift report from AM nurse. Walking rounds completed.
--- NOTE | 2019-02-17 22:07 | NUR ---
Patient c/o pain. pain meds given as ordered by MD. Continue monitor.
[2019-02-18] MEDS: HYDROMORPHONE 1MG/1ML INJ IV PRN (01:50)
[2019-02-18] MEDS ORDERED: VANCOMYCIN 1GM/NS 250 ML 250 ML IV SCH (02:00)
[2019-02-18] MEDS: DIPHENHYDRAMINE HCL INJ 50 MG/ML VIAL IV PRN (02:38)
[2019-02-18] MEDS ORDERED: SODIUM CHLORIDE 0.9% 250ML 250 ML ONE (02:49)
[2019-02-18 04:00] VITALS: BP 128/70
[2019-02-18] MEDS ORDERED: HYDROMORPHONE 1MG/1ML INJ IV PRN (07:00)
[2019-02-18] MEDS: INSULIN REGULAR, HUMAN 100 UNIT/1 ML 3ML VIAL SQ SCH (07:30)
[2019-02-18 08:00] VITALS: BP 148/70
[2019-02-18 08:52] VITALS: BP 148/70
[2019-02-18] MEDS: INSULIN GLARGINE 100 UNITS/ML VIAL SQ SCH (09:00)
[2019-02-18] MEDS: FAMOTIDINE 20 MG/2 ML VIAL IV SCH (09:33)
[2019-02-18] MEDS: PREGABALIN 75 MG CAP PO SCH (09:33)
[2019-02-18] MEDS: MUPIROCIN 2% OINT 22 GM TUBE TOP SCH (09:33)
[2019-02-18] MEDS: HYDROCODONE/APAP 10MG-325MG TAB PO PRN (09:34)
--- NOTE | 2019-02-18 10:37 | NUR ---
ALBERTA SPOKE W ANSHU @ DR. ROWELL'S OFFICE. APPOINTMENT WAS SCHEDULED FOR 10AM TODAY. ANSHU STATES OKAY TO COME TO OFFICE ANY TIME BEFORE 3PM. [address].
--- NOTE | 2019-02-18 10:55 | Progress Note ---
DATE: 02/18/2019 SUBJECTIVE: The patient is seen at bedside, doing better. Denies any history of fever, chills, nausea, or vomiting. Decreased swelling to the right lower extremity. OBJECTIVE: VITAL SIGNS: Afebrile, pulse rate 66, respirations 20, blood pressure 127/70, and O2 saturation 92%. EXTREMITIES: Ulceration shows some granulation tissue with decreased drainage, tracking down to bone. Positive edema surrounding the right foot. LABORATORY DATA: Labs show white blood cell count of 7.06. ASSESSMENT: Charcot foot osteomyelitis, grade 4 ulcer with diabetic neuropathy. PLAN: We will continue local wound care. The patient will continue IV antibiotics at home. Okay to be discharged if okay with Dr. Wright. The patient is to follow up within the next 2 days in the office upon discharge. Instructed on strict weightbearing limited with the [employer] walking boot. LADONNA Pruitt/JOVANNA /[id number]
[2019-02-18 12:00] VITALS: BP 123/67
--- NOTE | 2019-02-18 12:31 | NUR ---
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
--- NOTE | 2019-02-19 17:44 | Discharge Summary ---
ADMISSION DIAGNOSES: 1. Right foot grade 3 ulcer with possible osteomyelitis and diabetic neuropathy. 2. Hypertension. 3. Type 2 diabetes. 4. Acute kidney injury. DISCHARGE DIAGNOSES: 1. Right foot grade 3 ulcer with possible osteomyelitis and diabetic neuropathy. 2. Hypertension. 3. Type 2 diabetes. 4. Acute kidney injury. 5. Right foot osteomyelitis. 6. History of hypertension. 7. Type 2 diabetes. 8. Coronary artery disease. SURGICAL HISTORY: Bilateral knee repair and I and D. FAMILY HISTORY: Diabetes and high blood pressure. SOCIAL HISTORY: Noncontributory. HOSPITAL COURSE: A 58-year-old male admits with complaints of a right foot ulcer for several days with associated fever and chills. The patient had Charcot foot deformity for a few months now and was following up with Cardiology and was using a boot. The patient was started on IV Levaquin and vancomycin. He was also given Benadryl p.r.n. for his allergy to vancomycin. With Benadryl, the patient is tolerating the medicine well. Podiatry was consulted and the patient had a bedside debridement on 02/11 and 02/15. Bilateral venous Doppler was negative. Foot x-ray showed erosive changes of midfoot at the level of the base of the 3rd through 5th metatarsals concerning for osteomyelitis. Due to the patient's size, he was unable to sit in an MRI machine, so a CT of the foot was done, which showed Charcot arthropathy of the midfoot with superimposed osteomyelitis. Chest x-ray showed enlarged cardiomediastinal silhouette and mild central vascular congestion. CT of the chest showed no PE. Echo showed EF of 65% to 70%. Urine culture, blood culture, wound culture were all negative. The patient will be discharge home with IV antibiotics followed up at Dr. Lara office. He will follow up with Dr. Leblanc as well. At time of discharge, the patient is receiving daptomycin at a reduced dose per Dr. Lara's recommendation. Vital signs are stable. The patient is afebrile. The patient understands discharge instructions and agrees to plan. Dictated by Christelle Good NP Jp Wright MD JAMES/MODL /[id number]
== END 2019-02-18 12:30 | disposition home or self-care (01) | DRG 623 ==
LOC: ER 22:08 → ERHOLD 02-11 02:36 → IMCU 02-11 05:31 → MED/SURG3 02-14 10:40
PROVIDERS: ADMIT Internal Medicine; ATTEND Internal Medicine
PROC: 0KBV0ZZ Excision of Right Foot Muscle, Open Approach (ICD-10-PCS; principal; 2019-02-11)
PROC: 02HV33Z Insertion of Infusion Device into Superior Vena Cava, Percutaneous Approach (ICD-10-PCS; 2019-02-12)
PROC: 0QBN0ZZ Excision of Right Metatarsal, Open Approach (ICD-10-PCS; 2019-02-15)
DX: E11.69 Type 2 diabetes mellitus with other specified complication (principal); M86.8X7 Other osteomyelitis, ankle and foot; L97.518 Non-pressure chronic ulcer of other part of right foot with other specified severity; Z68.42 Body mass index [BMI] 45.0-49.9, adult; N39.0 Urinary tract infection, site not specified; Z79.4 Long term (current) use of insulin; E11.40 Type 2 diabetes mellitus with diabetic neuropathy, unspecified; N17.9 Acute kidney failure, unspecified; I25.10 Atherosclerotic heart disease of native coronary artery without angina pectoris; E11.621 Type 2 diabetes mellitus with foot ulcer; E11.610 Type 2 diabetes mellitus with diabetic neuropathic arthropathy; E66.01 Morbid (severe) obesity due to excess calories
CPT/HCPCS: 36415; 36569; 71045; 71260; 80048; 80053; 80202; 81001; 82550; 82553; 82948; 83735; 84484; 85025; 85379; 85610; 85651; 85730; 86140; 87040; 87071; 87086; 87205; 93005; 93306; 93970; 96372; 99284; J0696; J1170; J1200; J1650; J1815; J1817; J1956; J2060; J2270; J2405; J2920; J2930; J3370; J7030; J7050

== ENCOUNTER 2020-12-22 09:12 | Inpatient (IN) | payer BC ==
[~2020-12-22] VITALS: Ht 188 cm; Wt 171.5 kg
[~2020-12-22 09:12] MED LIST: AMLODIPINE BESY10 MG PO; CEFTRIAXON2 GM/50 ML IVP; COZAAR25 MG PO; HYDROCHLOROTHIA25 MG PO; LANTUS 3ML100 UNITS/ SC; LASIX40 MG PO; LYRICA75 MG PO; MELOXICAM7.5 MG PO; MEROPENEM-1 GM/50 ML; METFORMIN HCL500 MG PO; METOPROLOL TART25 MG PO; TYLENOL # 31 EA PO
[2020-12-22] MEDS ORDERED: CLINDAMYCIN 600MG / 50ML 50 ML IV STA (09:21)
[2020-12-22] MEDS ORDERED: KETOROLAC TROMETHAMINE 30 MG/ML VIAL IV STA (09:27)
[2020-12-22] MEDS ORDERED: SODIUM CHLORIDE 0.9% 1000ML 1,000 ML IV STA (09:27)
[2020-12-22] MEDS ORDERED: CEFTRIAXONE 1 GM in SODIUM CHLORIDE 0.9% 50ML 50 ML IV ONE (09:30)
[2020-12-22 09:44] LABS: BASOPHILS # (AUTO) 0.1 (0.0-0.1); BASOPHILS % 0.7 % (0.0-1.0); EOSINOPHILS # (AUTO) 0.3 (0.0-0.4); EOSINOPHILS % 2.6 % (0.0-6.0); HEMATOCRIT 33.5 % (38.2-49.6); HEMOGLOBIN 10.8 g/dL (14.0-18.0); LYMPHOCYTES # (AUTO) 2.2 (1.0-3.2); LYMPHOCYTES % 18.4 % (18.0-39.1); MEAN CORPUSCULAR HEMOGLOBIN 26.7 pg (28-32); MEAN CORPUSCULAR HGB CONC 32.2 g/dL (31-35); MEAN CORPUSCULAR VOLUME 82.7 fL (81-99); MONOCYTES # (AUTO) 0.8 (0.2-0.8); MONOCYTES % 6.8 % (4.4-11.3); NEUTROPHILS # (AUTO) 7.7 (2.1-6.9); NEUTROPHILS % 64.6 % (38.7-80.0); PLATELET COUNT 460 x10e3/uL (140-360); RED BLOOD COUNT 4.05 x10e6/uL (4.3-5.7); RED CELL DISTRIBUTION WIDTH 13.5 % (11.7-14.4)
[2020-12-22 10:06] LABS: ALBUMIN 2.6 g/dL (3.5-5.0); ALBUMIN/GLOBULIN RATIO 0.6 (0.8-2.0); ANION GAP 15.5 mmol/L (8-16); CALCIUM 8.5 mg/dL (8.4-10.2); CREATININE, SERUM 0.87 mg/dL (0.72-1.25); POTASSIUM 5.5 mmol/L (3.5-5.1)
[2020-12-22] MEDS ORDERED: FENTANYL CITRATE/PF 100MCG/2 ML INJ IV ONE (10:15)
[2020-12-22] MEDS ORDERED: SOD POLYSTYRENE SULFONATE SUSP 15 GM/60 ML BTL PO STA (10:54)
[2020-12-22] MEDS ORDERED: DEXTROSE 50% SYRINGE 50 ML IV STA (10:54)
[2020-12-22] MEDS ORDERED: INSULIN REGULAR, HUMAN 100 UNIT/1 ML IV ONE (11:00)
[2020-12-22 11:49] LABS: CLARITY,URINE CLEAR (CLEAR); COLOR,URINE YELLOW (YELLOW); LEUKOCYTE ESTERASE ,URINE NEGATIVE (NEGATIVE); NITRITE,URINE NEGATIVE (NEGATIVE); PROTEIN,URINE DIPSTICK 1+ (NEGATIVE)
[2020-12-22 11:50] LABS: KETONES,URINE NEGATIVE (NEGATIVE); URINE UROBILINOGEN 0.2 mg/dL (0.2 - 1)
[2020-12-22 12:30] LABS: RBC,URINE 0-5 /HPF (0-5); WBC,URINE (MAN) 0-5 /HPF (0-5)
[2020-12-22 12:31] LABS: BACTERIA,URINE FEW /HPF; EPITHELIAL CELLS,URINE FEW /LPF
[2020-12-22] MEDS ORDERED: ACETAMINOPHEN 325 MG TAB PO PRN (12:45)
[2020-12-22] MEDS ORDERED: POLYETHYLENE GLYCOL 3350 17 GM PACK PO PRN (12:45)
[2020-12-22] MEDS ORDERED: DEXTROSE 50% SYRINGE 50 ML IV ONE (12:59)
[2020-12-22] MEDS ORDERED: SOD POLYSTYRENE SULFONATE SUSP 15 GM/60 ML BTL PO ONE (13:00)
[2020-12-22] MEDS: SODIUM CHLORIDE 0.9% 1000ML 1,000 ML IV SCH ×2 (13:15→19:00)
[2020-12-22] MEDS ORDERED: SODIUM CHLORIDE 0.9% 50ML 50 ML ONE (13:56)
[2020-12-22] MEDS ORDERED: IOPAMIDOL 370 MG/ML 200 ML INFUS..BTL INJ ONE (13:56)
[2020-12-22 15:40] VITALS: BP 129/89
[2020-12-22] MEDS: ONDANSETRON HCL INJ 2MG/ML 2ML 2 MG/ML VIAL IV PRN (15:45)
[2020-12-22] MEDS: HYDROMORPHONE 1MG/1ML INJ IV PRN ×3 (15:45→23:02)
[2020-12-22] MEDS: FAMOTIDINE 20 MG TAB PO SCH (17:22)
[2020-12-22] MEDS: DOCUSATE SODIUM 100 MG CAP PO SCH (17:23)
[2020-12-22 19:20] VITALS: BP 150/73
[2020-12-22 19:25] VITALS: BP 129/89
[2020-12-22 20:00] VITALS: BP 129/89
[2020-12-23] VITALS (8 sets, daily range): BP systolic 138–176; BP diastolic 65–83
[2020-12-23] MEDS: HYDROMORPHONE 1MG/1ML INJ IV PRN ×6 (02:02→22:06)
[2020-12-23] MEDS: SODIUM CHLORIDE 0.9% 1000ML 1,000 ML IV SCH ×3 (02:02→19:00)
[2020-12-23 05:44] LABS: BASOPHILS # (AUTO) 0.1 (0.0-0.1); BASOPHILS % 0.9 % (0.0-1.0); EOSINOPHILS # (AUTO) 0.4 (0.0-0.4); EOSINOPHILS % 4.3 % (0.0-6.0); HEMATOCRIT 31.6 % (38.2-49.6); HEMOGLOBIN 9.8 g/dL (14.0-18.0); LYMPHOCYTES # (AUTO) 2.5 (1.0-3.2); LYMPHOCYTES % 28.3 % (18.0-39.1); MEAN CORPUSCULAR HEMOGLOBIN 26.7 pg (28-32); MEAN CORPUSCULAR VOLUME 86.1 fL (81-99); MONOCYTES # (AUTO) 0.8 (0.2-0.8); NEUTROPHILS # (AUTO) 4.6 (2.1-6.9); NEUTROPHILS % 51.5 % (38.7-80.0); PLATELET COUNT 410 x10e3/uL (140-360); RED BLOOD COUNT 3.67 x10e6/uL (4.3-5.7); RED CELL DISTRIBUTION WIDTH 13.6 % (11.7-14.4)
[2020-12-23 06:05] LABS: ANION GAP 11.3 mmol/L (8-16); CALCIUM 7.6 mg/dL (8.4-10.2); POTASSIUM 4.3 mmol/L (3.5-5.1)
[2020-12-23 06:23] LABS: CHOL/HDL RATIO 3.6 (3.9-4.7); MAGNESIUM 1.6 MG/DL (1.3-2.1); PHOSPHORUS 3.7 MG/DL (2.3-4.7)
[2020-12-23 06:45] LABS: THYROID STIMULATING HORMONE 2.815 uIU/mL (0.350-4.940)
[2020-12-23] MEDS: DOCUSATE SODIUM 100 MG CAP PO SCH ×2 (09:00→17:00)
[2020-12-23] MEDS: FAMOTIDINE 20 MG TAB PO SCH ×5 (11:19→20:38)
[2020-12-23] MEDS ORDERED: TOBRAMYCIN 1.2GM BULK BOTTLE INJ ONE (12:00)
[2020-12-23] MEDS ORDERED: Vancomycin IV 1 GM VIAL ONE (12:56)
[2020-12-23] MEDS ORDERED: Vancomycin IV 1.25 GM in SODIUM CHLORIDE 0.9% 250ML 250 ML IV SCH (13:45)
[2020-12-23] MEDS ORDERED: CEFTRIAXONE 1 GM VIAL IM SCH (13:45)
[2020-12-23] MEDS: CEFTRIAXONE 2 GM in SODIUM CHLORIDE 0.9% 100 ML IV SCH (15:46)
[2020-12-23] MEDS ORDERED: FENTANYL CITRATE/PF 100MCG/2 ML INJ ONE (16:02)
[2020-12-23] MEDS ORDERED: MIDAZOLAM HCL 2 MG/2 ML VIAL ONE (16:02)
[2020-12-23] MEDS: DAPTOMYCIN 500mg 10ML 1,000 MG in SODIUM CHLORIDE 0.9% 100 ML IV SCH (17:02)
[2020-12-23] MEDS ORDERED: DEXTROSE 50% SYRINGE 50 ML IV PRN (18:00)
[2020-12-23] MEDS: INSULIN REGULAR, HUMAN 100 UNIT/1 ML SQ SCH ×2 (18:27→19:59)
[2020-12-23] MEDS: INSULIN GLARGINE 100 UNITS/ML VIAL SQ SCH (18:29)
[2020-12-23] MEDS ORDERED: HYDROMORPHONE 1MG/1ML INJ IV ONE (19:00)
[2020-12-23] MEDS ORDERED: POVIDONE IODINE 0.05% 0.05 % ML PO ONE (19:29)
[2020-12-23] MEDS ORDERED: DEXAMETHASONE SOD PHOS INJ 4 MG/ML SDV ONE (19:29)
[2020-12-23] MEDS ORDERED: PROPOFOL IV EMULSION 10 MG/ML 20 ML VIAL ONE (19:29)
[2020-12-23] MEDS ORDERED: SEVOFLURANE INHAL SOLN 250 ML PEN BTL ONE (19:29)
[2020-12-23] MEDS ORDERED: LIDOCAINE HCL 2% LOCAL INJ 5 ML SDV VIAL INJ ONE (19:29)
[2020-12-23] MEDS ORDERED: EPHEDRINE SULFATE INJ 50 MG/ML VIAL ONE (19:29)
[2020-12-23] MEDS ORDERED: ONDANSETRON HCL INJ 2MG/ML 2ML 2 MG/ML VIAL ONE (19:29)
[2020-12-23] MEDS: HYDRALAZINE HCL 20 MG/ML VIAL IV PRN (20:07)
[2020-12-24] VITALS (8 sets, daily range): BP systolic 136–159; BP diastolic 64–79
[2020-12-24] MEDS: SODIUM CHLORIDE 0.9% 1000ML 1,000 ML IV SCH ×2 (01:18→11:21)
[2020-12-24] MEDS: HYDROMORPHONE 1MG/1ML INJ IV PRN ×7 (01:19→20:46)
[2020-12-24 05:04] LABS: BASOPHILS % 0.3 % (0.0-1.0); HEMATOCRIT 29.5 % (38.2-49.6); HEMOGLOBIN 9.4 g/dL (14.0-18.0); LYMPHOCYTES # (AUTO) 1.2 (1.0-3.2); LYMPHOCYTES % 10.8 % (18.0-39.1); MEAN CORPUSCULAR HEMOGLOBIN 26.9 pg (28-32); MEAN CORPUSCULAR HGB CONC 31.9 g/dL (31-35); MEAN CORPUSCULAR VOLUME 84.3 fL (81-99); MONOCYTES # (AUTO) 0.6 (0.2-0.8); MONOCYTES % 5.6 % (4.4-11.3); NEUTROPHILS # (AUTO) 9.1 (2.1-6.9); NEUTROPHILS % 81.2 % (38.7-80.0); PLATELET COUNT 477 x10e3/uL (140-360); RED CELL DISTRIBUTION WIDTH 13.5 % (11.7-14.4)
[2020-12-24 05:40] LABS: ANION GAP 13.2 mmol/L (8-16); CALCIUM 7.8 mg/dL (8.4-10.2); CREATININE, SERUM 0.83 mg/dL (0.72-1.25); POTASSIUM 4.2 mmol/L (3.5-5.1)
[2020-12-24] MEDS: INSULIN REGULAR, HUMAN 100 UNIT/1 ML SQ SCH ×4 (07:30→20:26)
[2020-12-24] MEDS: DOCUSATE SODIUM 100 MG CAP PO SCH ×2 (08:06→17:14)
[2020-12-24] MEDS: INSULIN GLARGINE 100 UNITS/ML VIAL SQ SCH ×2 (08:06→20:27)
[2020-12-24] MEDS ORDERED: CALCIUM GLUCONATE 10% INJ 9.3 MEQ in SODIUM CHLORIDE 0.9% 100 ML 100 ML IV ONE (13:00)
[2020-12-24] MEDS ORDERED: ENOXAPARIN SOD INJ 120 MG/0.8 ML SYR SC NR (13:30)
[2020-12-24] MEDS: CEFTRIAXONE 2 GM in SODIUM CHLORIDE 0.9% 100 ML IV SCH (14:00)
[2020-12-24] MEDS: FAMOTIDINE 20 MG TAB PO SCH (15:41)
[2020-12-24] MEDS: LOSARTAN POTASSIUM 25 MG TAB PO SCH (17:14)
[2020-12-24] MEDS: METOPROLOL TARTRATE 25 MG TAB PO SCH (17:14)
[2020-12-24] MEDS: PREGABALIN 75 MG CAP PO SCH (17:14)
[2020-12-24] MEDS: DAPTOMYCIN 500mg 10ML 1,000 MG in SODIUM CHLORIDE 0.9% 100 ML IV SCH (17:14)
[2020-12-24] MEDS: METFORMIN HCL 500 MG TAB PO SCH (17:14)
[2020-12-24] MEDS: HYDRALAZINE HCL 20 MG/ML VIAL IV PRN (20:46)
[2020-12-25] VITALS (7 sets, daily range): BP systolic 143–185; BP diastolic 63–84
[2020-12-25] MEDS: HYDROMORPHONE 1MG/1ML INJ IV PRN ×7 (00:03→21:10)
[2020-12-25 04:59] LABS: BASOPHILS # (AUTO) 0.1 (0.0-0.1); BASOPHILS % 0.6 % (0.0-1.0); EOSINOPHILS # (AUTO) 0.2 (0.0-0.4); EOSINOPHILS % 1.5 % (0.0-6.0); HEMATOCRIT 33.2 % (38.2-49.6); HEMOGLOBIN 10.3 g/dL (14.0-18.0); LYMPHOCYTES # (AUTO) 2.2 (1.0-3.2); LYMPHOCYTES % 15.6 % (18.0-39.1); MEAN CORPUSCULAR VOLUME 87.1 fL (81-99); MONOCYTES # (AUTO) 0.9 (0.2-0.8); MONOCYTES % 6.4 % (4.4-11.3); NEUTROPHILS # (AUTO) 10.5 (2.1-6.9); NEUTROPHILS % 75.1 % (38.7-80.0); PLATELET COUNT 479 x10e3/uL (140-360); RED BLOOD COUNT 3.81 x10e6/uL (4.3-5.7); RED CELL DISTRIBUTION WIDTH 13.7 % (11.7-14.4)
[2020-12-25 05:13] LABS: ALBUMIN 2.6 g/dL (3.5-5.0); ALBUMIN/GLOBULIN RATIO 0.7 (0.8-2.0); CREATININE, SERUM 0.82 mg/dL (0.72-1.25)
[2020-12-25] MEDS: HYDRALAZINE HCL 20 MG/ML VIAL IV PRN (07:16)
[2020-12-25] MEDS: INSULIN REGULAR, HUMAN 100 UNIT/1 ML SQ SCH ×4 (08:30→20:35)
[2020-12-25] MEDS: FAMOTIDINE 20 MG TAB PO SCH ×2 (08:55→16:27)
[2020-12-25] MEDS: DOCUSATE SODIUM 100 MG CAP PO SCH ×2 (08:56→16:28)
[2020-12-25] MEDS: METFORMIN HCL 500 MG TAB PO SCH (08:57)
[2020-12-25] MEDS: LOSARTAN POTASSIUM 25 MG TAB PO SCH (08:57)
[2020-12-25] MEDS: METOPROLOL TARTRATE 25 MG TAB PO SCH ×3 (08:57→20:51)
[2020-12-25] MEDS: PREGABALIN 75 MG CAP PO SCH ×2 (08:57→16:27)
[2020-12-25] MEDS: INSULIN GLARGINE 100 UNITS/ML VIAL SQ SCH ×2 (09:47→20:35)
[2020-12-25] MEDS: CEFTRIAXONE 2 GM in SODIUM CHLORIDE 0.9% 100 ML IV SCH (14:50)
[2020-12-25] MEDS: DAPTOMYCIN 500mg 10ML 1,000 MG in SODIUM CHLORIDE 0.9% 100 ML IV SCH (16:27)
[2020-12-25] MEDS: TEMAZEPAM 15 MG CAP PO PRN (20:51)
[2020-12-26] VITALS (8 sets, daily range): BP systolic 154–165; BP diastolic 62–89
[2020-12-26] MEDS: HYDROMORPHONE 1MG/1ML INJ IV PRN ×5 (01:35→14:00)
[2020-12-26 05:33] LABS: BASOPHILS # (AUTO) 0.1 (0.0-0.1); EOSINOPHILS # (AUTO) 0.2 (0.0-0.4); EOSINOPHILS % 1.9 % (0.0-6.0); HEMATOCRIT 29.4 % (38.2-49.6); HEMOGLOBIN 9.1 g/dL (14.0-18.0); LYMPHOCYTES # (AUTO) 2.2 (1.0-3.2); MEAN CORPUSCULAR HEMOGLOBIN 26.8 pg (28-32); MEAN CORPUSCULAR VOLUME 86.7 fL (81-99); NEUTROPHILS # (AUTO) 6.5 (2.1-6.9); PLATELET COUNT 420 x10e3/uL (140-360); RED BLOOD COUNT 3.39 x10e6/uL (4.3-5.7); RED CELL DISTRIBUTION WIDTH 14.1 % (11.7-14.4)
[2020-12-26 06:08] LABS: ALBUMIN 2.4 g/dL (3.5-5.0); ALBUMIN/GLOBULIN RATIO 0.6 (0.8-2.0); ANION GAP 14.9 mmol/L (8-16); CALCIUM 8.1 mg/dL (8.4-10.2); CREATININE, SERUM 0.83 mg/dL (0.72-1.25); POTASSIUM 3.9 mmol/L (3.5-5.1)
[2020-12-26] MEDS: FAMOTIDINE 20 MG TAB PO SCH ×2 (08:43→16:57)
[2020-12-26] MEDS: LOSARTAN POTASSIUM 25 MG TAB PO SCH (08:43)
[2020-12-26] MEDS: DOCUSATE SODIUM 100 MG CAP PO SCH ×2 (08:43→16:58)
[2020-12-26] MEDS: PREGABALIN 75 MG CAP PO SCH ×3 (08:43→20:33)
[2020-12-26] MEDS: METOPROLOL TARTRATE 25 MG TAB PO SCH ×3 (08:44→20:32)
[2020-12-26] MEDS: INSULIN GLARGINE 100 UNITS/ML VIAL SQ SCH ×2 (08:44→20:43)
[2020-12-26] MEDS: INSULIN REGULAR, HUMAN 100 UNIT/1 ML SQ SCH ×4 (08:45→20:42)
[2020-12-26] MEDS: CEFTRIAXONE 2 GM in SODIUM CHLORIDE 0.9% 100 ML IV SCH (16:00)
[2020-12-26] MEDS ORDERED: SODIUM CHLORIDE 0.9% 250ML 250 ML ONE (16:21)
[2020-12-26] MEDS: ONDANSETRON HCL INJ 2MG/ML 2ML 2 MG/ML VIAL IV PRN (16:55)
[2020-12-26] MEDS: Morphine 4mg Syringe 4 MG/ML INJ IV PRN ×2 (16:55→20:33)
[2020-12-26] MEDS: DAPTOMYCIN 500mg 10ML 1,000 MG in SODIUM CHLORIDE 0.9% 100 ML IV SCH (17:20)
[2020-12-27] VITALS (8 sets, daily range): BP systolic 133–155; BP diastolic 63–81
[2020-12-27] MEDS: Morphine 4mg Syringe 4 MG/ML INJ IV PRN ×7 (03:20→23:15)
[2020-12-27 07:00] LABS: ALBUMIN 2.4 g/dL (3.5-5.0); ALBUMIN/GLOBULIN RATIO 0.6 (0.8-2.0); ANION GAP 13.2 mmol/L (8-16); CREATININE, SERUM 0.83 mg/dL (0.72-1.25); POTASSIUM 4.2 mmol/L (3.5-5.1)
[2020-12-27 07:26] LABS: BASOPHILS # (AUTO) 0.1 (0.0-0.1); BASOPHILS % 1.2 % (0.0-1.0); EOSINOPHILS # (AUTO) 0.4 (0.0-0.4); EOSINOPHILS % 3.4 % (0.0-6.0); HEMATOCRIT 31.9 % (38.2-49.6); LYMPHOCYTES % 18.2 % (18.0-39.1); MEAN CORPUSCULAR HGB CONC 31.3 g/dL (31-35); MONOCYTES # (AUTO) 1.2 (0.2-0.8); MONOCYTES % 11.1 % (4.4-11.3); NEUTROPHILS # (AUTO) 7.2 (2.1-6.9); NEUTROPHILS % 65.1 % (38.7-80.0); PLATELET COUNT 430 x10e3/uL (140-360); RED BLOOD COUNT 3.71 x10e6/uL (4.3-5.7); RED CELL DISTRIBUTION WIDTH 13.9 % (11.7-14.4)
[2020-12-27] MEDS: INSULIN REGULAR, HUMAN 100 UNIT/1 ML SQ SCH ×4 (07:30→21:10)
[2020-12-27] MEDS: DOCUSATE SODIUM 100 MG CAP PO SCH ×2 (09:00→16:23)
[2020-12-27] MEDS: PREGABALIN 75 MG CAP PO SCH ×2 (09:00→20:55)
[2020-12-27] MEDS: FAMOTIDINE 20 MG TAB PO SCH ×2 (09:23→16:24)
[2020-12-27] MEDS: LOSARTAN POTASSIUM 25 MG TAB PO SCH (09:23)
[2020-12-27] MEDS: METOPROLOL TARTRATE 25 MG TAB PO SCH ×3 (09:24→20:55)
[2020-12-27] MEDS: INSULIN GLARGINE 100 UNITS/ML VIAL SQ SCH ×2 (09:24→21:10)
[2020-12-27] MEDS ORDERED: ALTEPLASE RECOMBINANT 2 MG/2 ML VIAL ONE (13:15)
[2020-12-27] MEDS ORDERED: ALTEPLASE RECOMBINANT 2 MG/2 ML VIAL IV PRN (14:00)
[2020-12-27] MEDS: CEFTRIAXONE 2 GM in SODIUM CHLORIDE 0.9% 100 ML IV SCH (15:30)
[2020-12-27] MEDS: DAPTOMYCIN 500mg 10ML 1,000 MG in SODIUM CHLORIDE 0.9% 100 ML IV SCH (17:15)
[2020-12-28] VITALS (9 sets, daily range): BP systolic 140–187; BP diastolic 62–85
[2020-12-28] MEDS: Morphine 4mg Syringe 4 MG/ML INJ IV PRN ×4 (02:16→12:25)
[2020-12-28] MEDS: INSULIN REGULAR, HUMAN 100 UNIT/1 ML SQ SCH ×4 (07:30→20:34)
[2020-12-28 07:48] LABS: BASOPHILS # (AUTO) 0.1 (0.0-0.1); BASOPHILS % 0.8 % (0.0-1.0); EOSINOPHILS # (AUTO) 0.3 (0.0-0.4); EOSINOPHILS % 1.9 % (0.0-6.0); HEMATOCRIT 33.1 % (38.2-49.6); HEMOGLOBIN 10.5 g/dL (14.0-18.0); LYMPHOCYTES # (AUTO) 1.7 (1.0-3.2); LYMPHOCYTES % 13.3 % (18.0-39.1); MEAN CORPUSCULAR HEMOGLOBIN 26.7 pg (28-32); MEAN CORPUSCULAR HGB CONC 31.7 g/dL (31-35); MEAN CORPUSCULAR VOLUME 84.2 fL (81-99); MONOCYTES # (AUTO) 1.6 (0.2-0.8); MONOCYTES % 12.2 % (4.4-11.3); NEUTROPHILS # (AUTO) 9.2 (2.1-6.9); NEUTROPHILS % 71.1 % (38.7-80.0); PLATELET COUNT 462 x10e3/uL (140-360); RED BLOOD COUNT 3.93 x10e6/uL (4.3-5.7); RED CELL DISTRIBUTION WIDTH 13.9 % (11.7-14.4)
[2020-12-28 08:09] LABS: ALBUMIN 2.6 g/dL (3.5-5.0); ALBUMIN/GLOBULIN RATIO 0.6 (0.8-2.0); ANION GAP 14.4 mmol/L (8-16); CALCIUM 8.4 mg/dL (8.4-10.2); CREATININE, SERUM 0.81 mg/dL (0.72-1.25); POTASSIUM 4.4 mmol/L (3.5-5.1)
[2020-12-28] MEDS: DOCUSATE SODIUM 100 MG CAP PO SCH ×2 (08:58→16:40)
[2020-12-28] MEDS: FAMOTIDINE 20 MG TAB PO SCH ×2 (08:58→15:51)
[2020-12-28] MEDS: LOSARTAN POTASSIUM 25 MG TAB PO SCH (08:59)
[2020-12-28] MEDS: METOPROLOL TARTRATE 25 MG TAB PO SCH ×3 (09:00→20:32)
[2020-12-28] MEDS: PREGABALIN 75 MG CAP PO SCH ×2 (09:00→20:32)
[2020-12-28] MEDS: INSULIN GLARGINE 100 UNITS/ML VIAL SQ SCH ×2 (09:01→20:34)
[2020-12-28] MEDS: CEFTRIAXONE 2 GM in SODIUM CHLORIDE 0.9% 100 ML IV SCH (15:50)
[2020-12-28] MEDS: HYDROMORPHONE 1MG/1ML INJ IV PRN ×2 (15:52→19:10)
[2020-12-28] MEDS: DAPTOMYCIN 500mg 10ML 1,000 MG in SODIUM CHLORIDE 0.9% 100 ML IV SCH (17:30)
[2020-12-28] MEDS: ALBUTEROL SULFATE HFA 8GM INHALATION AEROSOL INH PRN ×2 (19:22→23:55)
[2020-12-28] MEDS: HYDROMORPHONE 2MG/ML 2 MG/ML ML IV PRN (22:22)
[2020-12-29] VITALS (8 sets, daily range): BP systolic 132–156; BP diastolic 48–73
[2020-12-29] MEDS: HYDROMORPHONE 2MG/ML 2 MG/ML ML IV PRN ×3 (01:15→09:08)
[2020-12-29] MEDS: TEMAZEPAM 15 MG CAP PO PRN (02:35)
[2020-12-29 05:04] LABS: BASOPHILS # (AUTO) 0.1 (0.0-0.1); BASOPHILS % 0.7 % (0.0-1.0); EOSINOPHILS # (AUTO) 0.3 (0.0-0.4); EOSINOPHILS % 2.4 % (0.0-6.0); HEMATOCRIT 30.1 % (38.2-49.6); HEMOGLOBIN 9.4 g/dL (14.0-18.0); LYMPHOCYTES % 17.9 % (18.0-39.1); MEAN CORPUSCULAR HEMOGLOBIN 26.4 pg (28-32); MEAN CORPUSCULAR HGB CONC 31.2 g/dL (31-35); MEAN CORPUSCULAR VOLUME 84.6 fL (81-99); MONOCYTES # (AUTO) 1.5 (0.2-0.8); MONOCYTES % 13.6 % (4.4-11.3); NEUTROPHILS % 64.6 % (38.7-80.0); PLATELET COUNT 391 x10e3/uL (140-360); RED BLOOD COUNT 3.56 x10e6/uL (4.3-5.7); RED CELL DISTRIBUTION WIDTH 13.8 % (11.7-14.4)
[2020-12-29 05:19] LABS: ANION GAP 13.1 mmol/L (8-16); CALCIUM 8.3 mg/dL (8.4-10.2); CREATININE, SERUM 0.85 mg/dL (0.72-1.25); POTASSIUM 4.1 mmol/L (3.5-5.1)
[2020-12-29] MEDS: FAMOTIDINE 20 MG TAB PO SCH ×2 (08:58→15:53)
[2020-12-29] MEDS: LOSARTAN POTASSIUM 25 MG TAB PO SCH (09:00)
[2020-12-29] MEDS: METOPROLOL TARTRATE 25 MG TAB PO SCH ×3 (09:00→20:36)
[2020-12-29] MEDS: DOCUSATE SODIUM 100 MG CAP PO SCH ×2 (09:00→16:09)
[2020-12-29] MEDS: ASPIRIN 325 MG TAB PO SCH (09:04)
[2020-12-29] MEDS: PREGABALIN 75 MG CAP PO SCH ×2 (09:06→20:38)
[2020-12-29] MEDS: INSULIN GLARGINE 100 UNITS/ML VIAL SQ SCH (09:07)
[2020-12-29] MEDS: INSULIN REGULAR, HUMAN 100 UNIT/1 ML SQ SCH ×4 (09:07→20:44)
[2020-12-29] MEDS ORDERED: ACETAMINOPHEN-1 EAC4 PO ×2 (09:29→09:34)
[2020-12-29] MEDS ORDERED: LANTUS 3ML100 UNITS/ SC (09:29)
[2020-12-29] MEDS ORDERED: LYRICA75 MG PO ×2 (09:29→09:34)
[2020-12-29] MEDS ORDERED: FUROSEMIDE INJ 10 MG/ML 4 ML VIAL IV ONE (10:00)
[2020-12-29] MEDS: ALBUTEROL SULFATE HFA 8GM INHALATION AEROSOL INH PRN (11:46)
[2020-12-29] MEDS: HYDROCODONE/APAP 10MG-325MG TAB PO PRN ×2 (12:52→20:45)
[2020-12-29] MEDS ORDERED: SODIUM CHLORIDE 0.9% 100 ML ONE (15:09)
[2020-12-29] MEDS: HYDROMORPHONE 1MG/1ML INJ IV PRN ×2 (15:23→22:00)
[2020-12-29] MEDS: CEFTRIAXONE 2 GM in SODIUM CHLORIDE 0.9% 100 ML IV SCH (15:28)
[2020-12-29] MEDS: DAPTOMYCIN 500mg 10ML 1,000 MG in SODIUM CHLORIDE 0.9% 100 ML IV SCH (16:27)
[2020-12-29] MEDS ORDERED: ONDANSETRON HCL 4 MG ORAL DISINTEGRATING TAB PO PRN (16:30)
[2020-12-30] VITALS (7 sets, daily range): BP systolic 123–166; BP diastolic 41–86
[2020-12-30] MEDS: INSULIN GLARGINE 100 UNITS/ML VIAL SQ SCH ×2 (04:36→09:00)
[2020-12-30 04:59] LABS: BASOPHILS # (AUTO) 0.1 (0.0-0.1); BASOPHILS % 0.8 % (0.0-1.0); EOSINOPHILS # (AUTO) 0.3 (0.0-0.4); EOSINOPHILS % 1.9 % (0.0-6.0); HEMATOCRIT 31.4 % (38.2-49.6); HEMOGLOBIN 9.8 g/dL (14.0-18.0); LYMPHOCYTES # (AUTO) 1.8 (1.0-3.2); LYMPHOCYTES % 13.6 % (18.0-39.1); MEAN CORPUSCULAR HEMOGLOBIN 26.4 pg (28-32); MEAN CORPUSCULAR HGB CONC 31.2 g/dL (31-35); MEAN CORPUSCULAR VOLUME 84.6 fL (81-99); MONOCYTES # (AUTO) 1.3 (0.2-0.8); MONOCYTES % 10.3 % (4.4-11.3); NEUTROPHILS # (AUTO) 9.5 (2.1-6.9); NEUTROPHILS % 72.6 % (38.7-80.0); PLATELET COUNT 384 x10e3/uL (140-360); RED BLOOD COUNT 3.71 x10e6/uL (4.3-5.7); RED CELL DISTRIBUTION WIDTH 13.7 % (11.7-14.4)
[2020-12-30 05:25] LABS: CALCIUM 8.4 mg/dL (8.4-10.2); MAGNESIUM 1.9 MG/DL (1.3-2.1)
[2020-12-30] MEDS: HYDROMORPHONE 1MG/1ML INJ IV PRN ×4 (06:48→13:15)
[2020-12-30] MEDS: INSULIN REGULAR, HUMAN 100 UNIT/1 ML SQ SCH ×3 (07:30→16:30)
[2020-12-30] MEDS: FAMOTIDINE 20 MG TAB PO SCH ×2 (07:30→15:07)
[2020-12-30] MEDS: DOCUSATE SODIUM 100 MG CAP PO SCH ×2 (09:00→15:26)
[2020-12-30] MEDS: LOSARTAN POTASSIUM 25 MG TAB PO SCH (09:00)
[2020-12-30] MEDS: ASPIRIN 325 MG TAB PO SCH (09:00)
[2020-12-30] MEDS: METOPROLOL TARTRATE 25 MG TAB PO SCH ×2 (09:00→15:00)
[2020-12-30] MEDS: PREGABALIN 75 MG CAP PO SCH (09:00)
[2020-12-30] MEDS ORDERED: LIDOCAINE HCL 1% 2 ML AMP INJ ONE (09:45)
[2020-12-30] MEDS ORDERED: TRIAMCINOLONE ACET 40 MG/ML VIAL IM ONE (09:45)
[2020-12-30] MEDS: ALBUTEROL SULFATE HFA 8GM INHALATION AEROSOL INH PRN (11:02)
[2020-12-30] MEDS: CEFTRIAXONE 2 GM in SODIUM CHLORIDE 0.9% 100 ML IV SCH (14:21)
[2020-12-30] MEDS ORDERED: FUROSEMIDE INJ 10 MG/ML 4 ML VIAL IV SCH (15:00)
[2020-12-30] MEDS: DAPTOMYCIN 500mg 10ML 1,000 MG in SODIUM CHLORIDE 0.9% 100 ML IV SCH (15:06)
== END 2020-12-30 17:15 | disposition home health service (06) | DRG 623 ==
LOC: ER 09:20 → ERHOLD 10:48 → MED/SURG2 14:58
PROVIDERS: ADMIT Internal Medicine; ATTEND Internal Medicine
PROC: 0QBL0ZX Excision of Right Tarsal, Open Approach, Diagnostic (ICD-10-PCS; 2020-12-23)
PROC: 0KBV0ZZ Excision of Right Foot Muscle, Open Approach (ICD-10-PCS; principal; 2020-12-23 11:30)
DX: E11.69 Type 2 diabetes mellitus with other specified complication (principal); M86.171 Other acute osteomyelitis, right ankle and foot; E87.1 Hypo-osmolality and hyponatremia; Z68.42 Body mass index [BMI] 45.0-49.9, adult; L03.115 Cellulitis of right lower limb; L97.411 Non-pressure chronic ulcer of right heel and midfoot limited to breakdown of skin; L97.414 Non-pressure chronic ulcer of right heel and midfoot with necrosis of bone; E78.5 Hyperlipidemia, unspecified; I25.10 Atherosclerotic heart disease of native coronary artery without angina pectoris; Z20.822 Contact with and (suspected) exposure to COVID-19; E11.42 Type 2 diabetes mellitus with diabetic polyneuropathy; Z96.653 Presence of artificial knee joint, bilateral; E11.610 Type 2 diabetes mellitus with diabetic neuropathic arthropathy; E87.5 Hyperkalemia; Z83.3 Family history of diabetes mellitus; Z82.49 Family history of ischemic heart disease and other diseases of the circulatory system; Z88.0 Allergy status to penicillin; Z88.8 Allergy status to other drugs, medicaments and biological substances; Z88.1 Allergy status to other antibiotic agents; Z91.040 Latex allergy status; E66.01 Morbid (severe) obesity due to excess calories; E11.621 Type 2 diabetes mellitus with foot ulcer; E11.65 Type 2 diabetes mellitus with hyperglycemia; I11.9 Hypertensive heart disease without heart failure; D63.8 Anemia in other chronic diseases classified elsewhere; G47.33 Obstructive sleep apnea (adult) (pediatric); M24.444 Recurrent dislocation, right finger; Z79.4 Long term (current) use of insulin
CPT/HCPCS: 36415; 36569; 71045; 74470; 76000; 80048; 80053; 80061; 81001; 82948; 83036; 83605; 83735; 84100; 84443; 85025; 86140; 87040; 87071; 87075; 87086; 87205; 88304; 88305; 88311; 93925; 93970; 94664; 96361; 97139; 97605; 99251; 99284; C1713; J0360; J0610; J0696; J1100; J1170; J1650; J1815; J1817; J1885; J1940; J2001; J2250; J2270; J2405; J2997; J3010; J3301; J3370; J7030; J7050; J7799; Q9967; U0002

== ENCOUNTER 2021-01-06 00:12 | Inpatient (IN) | payer BC ==
[~2021-01-06] VITALS: Ht 188 cm; Wt 113.2 kg
[~2021-01-06 00:12] MED LIST changes: +ACETAMINOPHEN-1 EAC4 PO
[2021-01-06 01:01] LABS: BASOPHILS # (AUTO) 0.2 (0.0-0.1); BASOPHILS % 0.9 % (0.0-1.0); EOSINOPHILS # (AUTO) 1.8 (0.0-0.4); EOSINOPHILS % 9.1 % (0.0-6.0); HEMATOCRIT 37.9 % (38.2-49.6); HEMOGLOBIN 11.9 g/dL (14.0-18.0); LYMPHOCYTES # (AUTO) 2.1 (1.0-3.2); LYMPHOCYTES % 10.4 % (18.0-39.1); MEAN CORPUSCULAR HEMOGLOBIN 26.2 pg (28-32); MEAN CORPUSCULAR HGB CONC 31.4 g/dL (31-35); MEAN CORPUSCULAR VOLUME 83.3 fL (81-99); MONOCYTES # (AUTO) 1.5 (0.2-0.8); MONOCYTES % 7.4 % (4.4-11.3); NEUTROPHILS # (AUTO) 13.2 (2.1-6.9); NEUTROPHILS % 66.7 % (38.7-80.0); PLATELET COUNT 531 x10e3/uL (140-360); RED BLOOD COUNT 4.55 x10e6/uL (4.3-5.7); RED CELL DISTRIBUTION WIDTH 14.6 % (11.7-14.4)
[2021-01-06 01:20] LABS: ALBUMIN 2.5 g/dL (3.5-5.0); ALBUMIN/GLOBULIN RATIO 0.5 (0.8-2.0); ANION GAP 22.5 mmol/L (8-16); CALCIUM 8.4 mg/dL (8.4-10.2); CREATININE, SERUM 1.37 mg/dL (0.72-1.25); POTASSIUM 4.5 mmol/L (3.5-5.1)
[2021-01-06 01:24] LABS: ABG PCO2 27 mmHg (35-45); ABG PH 7.48 (7.35-7.45)
[2021-01-06 01:25] LABS: ABG HCO3 20 mmol/L (22-26); ABG PO2 79 mmHg (80-105); ABG TCO2 21
[2021-01-06 01:27] LABS: CREATINE KINASE MB 0.7 ng/mL (0-5.0)
[2021-01-06] MEDS ORDERED: Morphine 4mg Syringe 4 MG/ML INJ IV STA (01:55)
[2021-01-06] MEDS: LEVOFLOXACIN 750MG/D5W 150ML 150 ML IV SCH (02:59)
[2021-01-06 04:30] VITALS: BP 125/72
[2021-01-06 05:15] VITALS: BP 125/72
[2021-01-06 07:36] VITALS: BP 122/72
[2021-01-06 07:39] VITALS: BP 122/72
[2021-01-06] MEDS: ONDANSETRON HCL INJ 2MG/ML 2ML 2 MG/ML VIAL IV PRN ×2 (08:06→12:39)
[2021-01-06] MEDS: Morphine 4mg Syringe 4 MG/ML INJ IV PRN ×3 (08:06→20:48)
[2021-01-06] MEDS ORDERED: DEXTROSE 50% SYRINGE 50 ML IV PRN (12:45)
[2021-01-06] MEDS ORDERED: SODIUM CHLORIDE 0.9% 1000ML 1,000 ML IV ONE ×2 (13:30→16:45)
[2021-01-06] MEDS ORDERED: METHYLPREDNISOLONE SOD SUCC 40 MG/ML VIAL 1ML IV ONE ×2 (13:30→16:50)
[2021-01-06] MEDS: PREGABALIN 75 MG CAP PO SCH (16:53)
[2021-01-06] MEDS: BACITRACIN ZINC 15 GM OINT TOP SCH (17:30)
[2021-01-06] MEDS: INSULIN LISPRO 100 UNIT/1 ML 3ML VIAL SQ SCH ×2 (17:31→20:42)
[2021-01-06] MEDS: LINEZOLID 600 MG/D5W 300ML 300 ML IV SCH (17:40)
[2021-01-06 20:00] VITALS: BP 114/68
[2021-01-06 20:30] LABS: CREATINE KINASE MB 0.8 ng/mL (0-5.0)
[2021-01-06] MEDS: INSULIN GLARGINE 100 UNITS/ML VIAL SQ SCH (20:42)
[2021-01-06 21:00] VITALS: BP 114/68
[2021-01-06] MEDS ORDERED: ZOLPIDEM TARTRATE 5 MG TAB PO PRN (21:00)
[2021-01-06] MEDS ORDERED: INSULIN GLARGINE 100 UNITS/ML VIAL SQ SCH (21:00)
[2021-01-07] VITALS (7 sets, daily range): BP systolic 127–156; BP diastolic 63–84
[2021-01-07] MEDS: LEVOFLOXACIN 750MG/D5W 150ML 150 ML IV SCH (00:55)
[2021-01-07] MEDS: Morphine 4mg Syringe 4 MG/ML INJ IV PRN ×6 (01:31→21:15)
[2021-01-07 05:22] LABS: BASOPHILS # (AUTO) 0.1 (0.0-0.1); BASOPHILS % 0.6 % (0.0-1.0); EOSINOPHILS % 0.2 % (0.0-6.0); HEMATOCRIT 32.7 % (38.2-49.6); HEMOGLOBIN 10.4 g/dL (14.0-18.0); LYMPHOCYTES # (AUTO) 1.2 (1.0-3.2); LYMPHOCYTES % 9.9 % (18.0-39.1); MEAN CORPUSCULAR HEMOGLOBIN 26.1 pg (28-32); MEAN CORPUSCULAR HGB CONC 31.8 g/dL (31-35); MEAN CORPUSCULAR VOLUME 82.2 fL (81-99); MONOCYTES # (AUTO) 0.4 (0.2-0.8); MONOCYTES % 3.2 % (4.4-11.3); NEUTROPHILS # (AUTO) 9.5 (2.1-6.9); NEUTROPHILS % 78.7 % (38.7-80.0); PLATELET COUNT 418 x10e3/uL (140-360); RED BLOOD COUNT 3.98 x10e6/uL (4.3-5.7); RED CELL DISTRIBUTION WIDTH 13.8 % (11.7-14.4)
[2021-01-07] MEDS: LINEZOLID 600 MG/D5W 300ML 300 ML IV SCH ×2 (05:31→17:40)
[2021-01-07 05:47] LABS: ALBUMIN 2.2 g/dL (3.5-5.0); ALBUMIN/GLOBULIN RATIO 0.5 (0.8-2.0); ANION GAP 14.9 mmol/L (8-16); CALCIUM 8.5 mg/dL (8.4-10.2); CREATININE, SERUM 1.16 mg/dL (0.72-1.25)
[2021-01-07 05:50] LABS: POTASSIUM 5.9 mmol/L (3.5-5.1)
[2021-01-07 06:41] LABS: CREATINE KINASE MB 0.8 ng/mL (0-5.0)
[2021-01-07] MEDS: PREGABALIN 75 MG CAP PO SCH ×2 (08:53→17:40)
[2021-01-07] MEDS: BACITRACIN ZINC 15 GM OINT TOP SCH (08:53)
[2021-01-07] MEDS: INSULIN GLARGINE 100 UNITS/ML VIAL SQ SCH ×2 (08:55→20:29)
[2021-01-07] MEDS: INSULIN LISPRO 100 UNIT/1 ML 3ML VIAL SQ SCH ×4 (08:55→20:31)
[2021-01-07] MEDS ORDERED: METHYLPREDNISOLONE SOD SUCC 125 MG/2ML VIAL IV NR (15:45)
[2021-01-07 17:16] LABS: MAGNESIUM 2.2 MG/DL (1.3-2.1); POTASSIUM 4.8 mmol/L (3.5-5.1)
[2021-01-08] VITALS (9 sets, daily range): BP systolic 122–167; BP diastolic 55–82
[2021-01-08] MEDS: LEVOFLOXACIN 750MG/D5W 150ML 150 ML IV SCH (01:00)
[2021-01-08] MEDS: Morphine 4mg Syringe 4 MG/ML INJ IV PRN ×8 (02:26→23:35)
[2021-01-08] MEDS: LINEZOLID 600 MG/D5W 300ML 300 ML IV SCH ×2 (06:00→17:04)
[2021-01-08] MEDS ORDERED: HEPARIN SOD (PORCINE) 1000 UNIT/ML SDV ONE (08:20)
[2021-01-08] MEDS: PREGABALIN 75 MG CAP PO SCH ×2 (10:33→17:04)
[2021-01-08] MEDS: BACITRACIN ZINC 15 GM OINT TOP SCH (10:33)
[2021-01-08] MEDS: INSULIN GLARGINE 100 UNITS/ML VIAL SQ SCH ×2 (10:34→20:35)
[2021-01-08] MEDS: INSULIN LISPRO 100 UNIT/1 ML 3ML VIAL SQ SCH ×4 (10:35→20:35)
[2021-01-08 11:13] LABS: BASOPHILS % 0.2 % (0.0-1.0); HEMATOCRIT 33.9 % (38.2-49.6); HEMOGLOBIN 10.4 g/dL (14.0-18.0); LYMPHOCYTES # (AUTO) 1.5 (1.0-3.2); LYMPHOCYTES % 10.3 % (18.0-39.1); MEAN CORPUSCULAR HEMOGLOBIN 25.4 pg (28-32); MEAN CORPUSCULAR HGB CONC 30.7 g/dL (31-35); MEAN CORPUSCULAR VOLUME 82.9 fL (81-99); MONOCYTES # (AUTO) 0.9 (0.2-0.8); MONOCYTES % 5.9 % (4.4-11.3); NEUTROPHILS # (AUTO) 12.1 (2.1-6.9); NEUTROPHILS % 80.7 % (38.7-80.0); PLATELET COUNT 403 x10e3/uL (140-360); RED BLOOD COUNT 4.09 x10e6/uL (4.3-5.7); RED CELL DISTRIBUTION WIDTH 13.8 % (11.7-14.4)
[2021-01-08 11:46] LABS: ANION GAP 14.5 mmol/L (8-16); CALCIUM 8.5 mg/dL (8.4-10.2); CREATININE, SERUM 1.03 mg/dL (0.72-1.25); POTASSIUM 5.5 mmol/L (3.5-5.1)
[2021-01-08] MEDS: ONDANSETRON HCL INJ 2MG/ML 2ML 2 MG/ML VIAL IV PRN (23:35)
[2021-01-09] VITALS (8 sets, daily range): BP systolic 128–150; BP diastolic 75–86
[2021-01-09] MEDS: LEVOFLOXACIN 750MG/D5W 150ML 150 ML IV SCH (00:30)
[2021-01-09] MEDS: Morphine 4mg Syringe 4 MG/ML INJ IV PRN ×7 (02:40→21:12)
[2021-01-09] MEDS: LINEZOLID 600 MG/D5W 300ML 300 ML IV SCH ×2 (05:45→17:17)
[2021-01-09 07:26] LABS: ALBUMIN 2.3 g/dL (3.5-5.0); ALBUMIN/GLOBULIN RATIO 0.6 (0.8-2.0); ANION GAP 13.7 mmol/L (8-16); CALCIUM 7.9 mg/dL (8.4-10.2); CREATININE, SERUM 0.91 mg/dL (0.72-1.25); POTASSIUM 4.7 mmol/L (3.5-5.1)
[2021-01-09] MEDS: BACITRACIN ZINC 15 GM OINT TOP SCH (08:27)
[2021-01-09] MEDS: PREGABALIN 75 MG CAP PO SCH ×2 (08:27→17:17)
[2021-01-09] MEDS: PANTOPRAZOLE SOD 40 MG TABEC PO SCH ×3 (08:27→17:17)
[2021-01-09] MEDS: INSULIN GLARGINE 100 UNITS/ML VIAL SQ SCH ×2 (08:28→21:00)
[2021-01-09] MEDS: INSULIN LISPRO 100 UNIT/1 ML 3ML VIAL SQ SCH ×4 (08:28→21:00)
[2021-01-09 09:13] LABS: BASOPHILS # (AUTO) 0.1 (0.0-0.1); BASOPHILS % 0.9 % (0.0-1.0); EOSINOPHILS # (AUTO) 0.2 (0.0-0.4); EOSINOPHILS % 1.8 % (0.0-6.0); HEMATOCRIT 34.5 % (38.2-49.6); HEMOGLOBIN 10.8 g/dL (14.0-18.0); LYMPHOCYTES % 21.8 % (18.0-39.1); MEAN CORPUSCULAR HEMOGLOBIN 26.2 pg (28-32); MEAN CORPUSCULAR HGB CONC 31.3 g/dL (31-35); MEAN CORPUSCULAR VOLUME 83.5 fL (81-99); MONOCYTES # (AUTO) 1.2 (0.2-0.8); MONOCYTES % 8.8 % (4.4-11.3); NEUTROPHILS # (AUTO) 8.7 (2.1-6.9); NEUTROPHILS % 63.8 % (38.7-80.0); PLATELET COUNT 414 x10e3/uL (140-360); RED BLOOD COUNT 4.13 x10e6/uL (4.3-5.7); RED CELL DISTRIBUTION WIDTH 13.9 % (11.7-14.4)
[2021-01-09] MEDS: ONDANSETRON HCL INJ 2MG/ML 2ML 2 MG/ML VIAL IV PRN (21:12)
[2021-01-10] VITALS (8 sets, daily range): BP systolic 121–150; BP diastolic 51–89
[2021-01-10] MEDS: Morphine 4mg Syringe 4 MG/ML INJ IV PRN ×8 (00:34→22:13)
[2021-01-10] MEDS: LEVOFLOXACIN 750MG/D5W 150ML 150 ML IV SCH (00:34)
[2021-01-10] MEDS: ONDANSETRON HCL INJ 2MG/ML 2ML 2 MG/ML VIAL IV PRN (03:45)
[2021-01-10 05:31] LABS: BASOPHILS # (AUTO) 0.2 (0.0-0.1); BASOPHILS % 1.2 % (0.0-1.0); EOSINOPHILS # (AUTO) 0.4 (0.0-0.4); EOSINOPHILS % 2.6 % (0.0-6.0); HEMATOCRIT 36.5 % (38.2-49.6); HEMOGLOBIN 11.1 g/dL (14.0-18.0); LYMPHOCYTES % 21.9 % (18.0-39.1); MEAN CORPUSCULAR HEMOGLOBIN 25.6 pg (28-32); MEAN CORPUSCULAR HGB CONC 30.4 g/dL (31-35); MEAN CORPUSCULAR VOLUME 84.1 fL (81-99); MONOCYTES # (AUTO) 1.3 (0.2-0.8); MONOCYTES % 9.5 % (4.4-11.3); NEUTROPHILS # (AUTO) 8.5 (2.1-6.9); PLATELET COUNT 447 x10e3/uL (140-360); RED BLOOD COUNT 4.34 x10e6/uL (4.3-5.7)
[2021-01-10] MEDS: LINEZOLID 600 MG/D5W 300ML 300 ML IV SCH ×2 (06:00→18:01)
[2021-01-10 06:04] LABS: ALBUMIN 2.4 g/dL (3.5-5.0); ALBUMIN/GLOBULIN RATIO 0.5 (0.8-2.0); ANION GAP 16.8 mmol/L (8-16); CALCIUM 8.6 mg/dL (8.4-10.2); CREATININE, SERUM 1.03 mg/dL (0.72-1.25); POTASSIUM 4.8 mmol/L (3.5-5.1)
[2021-01-10] MEDS: PREGABALIN 75 MG CAP PO SCH ×2 (08:45→18:01)
[2021-01-10] MEDS: PANTOPRAZOLE SOD 40 MG TABEC PO SCH ×2 (08:45→18:01)
[2021-01-10] MEDS: BACITRACIN ZINC 15 GM OINT TOP SCH (08:46)
[2021-01-10] MEDS: INSULIN LISPRO 100 UNIT/1 ML 3ML VIAL SQ SCH ×4 (08:47→21:08)
[2021-01-10] MEDS: INSULIN GLARGINE 100 UNITS/ML VIAL SQ SCH ×2 (08:47→21:08)
[2021-01-10] MEDS: METHYLPREDNISOLONE SOD SUCC 40 MG/ML VIAL 1ML IV SCH (11:36)
[2021-01-11] VITALS: BP 161/91
[2021-01-11] MEDS: LEVOFLOXACIN 750MG/D5W 150ML 150 ML IV SCH (00:50)
[2021-01-11] MEDS: Morphine 4mg Syringe 4 MG/ML INJ IV PRN ×5 (01:29→21:25)
[2021-01-11 04:00] VITALS: BP 148/84
[2021-01-11 04:57] LABS: BASOPHILS # (AUTO) 0.1 (0.0-0.1); BASOPHILS % 0.4 % (0.0-1.0); EOSINOPHILS % 0.1 % (0.0-6.0); HEMOGLOBIN 10.5 g/dL (14.0-18.0); LYMPHOCYTES # (AUTO) 2.1 (1.0-3.2); LYMPHOCYTES % 14.5 % (18.0-39.1); MEAN CORPUSCULAR HEMOGLOBIN 25.9 pg (28-32); MEAN CORPUSCULAR HGB CONC 30.9 g/dL (31-35); NEUTROPHILS # (AUTO) 10.6 (2.1-6.9); PLATELET COUNT 415 x10e3/uL (140-360); RED BLOOD COUNT 4.05 x10e6/uL (4.3-5.7); RED CELL DISTRIBUTION WIDTH 13.9 % (11.7-14.4)
[2021-01-11] MEDS: LINEZOLID 600 MG/D5W 300ML 300 ML IV SCH (05:12)
[2021-01-11 05:22] LABS: ALBUMIN 2.3 g/dL (3.5-5.0); ALBUMIN/GLOBULIN RATIO 0.6 (0.8-2.0); ANION GAP 17.5 mmol/L (8-16); CALCIUM 8.4 mg/dL (8.4-10.2); CREATININE, SERUM 1.11 mg/dL (0.72-1.25); POTASSIUM 5.5 mmol/L (3.5-5.1)
[2021-01-11 07:52] VITALS: BP 159/81
[2021-01-11 08:00] VITALS: BP 159/81
[2021-01-11] MEDS: INSULIN LISPRO 100 UNIT/1 ML 3ML VIAL SQ SCH ×4 (08:51→21:26)
[2021-01-11] MEDS: PREGABALIN 75 MG CAP PO SCH ×2 (09:05→17:07)
[2021-01-11] MEDS: PANTOPRAZOLE SOD 40 MG TABEC PO SCH ×2 (09:05→17:08)
[2021-01-11] MEDS: INSULIN GLARGINE 100 UNITS/ML VIAL SQ SCH ×2 (09:07→21:26)
[2021-01-11] MEDS: BACITRACIN ZINC 15 GM OINT TOP SCH (09:07)
[2021-01-11] MEDS: METHYLPREDNISOLONE SOD SUCC 40 MG/ML VIAL 1ML IV SCH (11:45)
[2021-01-11] MEDS ORDERED: SOD POLYSTYRENE SULFONATE SUSP 15 GM/60 ML BTL PO ONE (12:00)
[2021-01-11 15:52] VITALS: BP 169/84
[2021-01-11 15:59] LABS: HEMATOCRIT 38.4 % (38.2-49.6); HEMOGLOBIN 11.8 g/dL (14.0-18.0); MEAN CORPUSCULAR HGB CONC 30.7 g/dL (31-35); MEAN CORPUSCULAR VOLUME 84.8 fL (81-99); PLATELET COUNT 409 x10e3/uL (140-360); RED BLOOD COUNT 4.53 x10e6/uL (4.3-5.7); RED CELL DISTRIBUTION WIDTH 14.1 % (11.7-14.4)
[2021-01-11 16:52] LABS: B-TYPE NATRIURETIC PEPTIDE2 90.3 pg/mL (0-100)
[2021-01-11 17:33] LABS: LYMPHOCYTES % (MANUAL) 8 % (19-48); MONOCYTES % (MANUAL) 3 % (3.4-9.0); NEUTROPHILS % (MANUAL) 89 % (40-74)
[2021-01-11 17:36] LABS: PLATELET ESTIMATE ADEQUATE; PLATELET MORPHOLOGY COMMENT NORMAL
[2021-01-11 17:37] LABS: HYPOCHROMASIA SLIGHT
[2021-01-11 20:00] VITALS: BP 182/94
[2021-01-12] VITALS (7 sets, daily range): BP systolic 136–167; BP diastolic 77–96
[2021-01-12] MEDS: LEVOFLOXACIN 750MG/D5W 150ML 150 ML IV SCH ×2 (00:24→23:38)
[2021-01-12] MEDS: Morphine 4mg Syringe 4 MG/ML INJ IV PRN ×9 (00:25→22:52)
[2021-01-12 05:07] LABS: BASOPHILS % 0.3 % (0.0-1.0); HEMATOCRIT 36.2 % (38.2-49.6); HEMOGLOBIN 11.1 g/dL (14.0-18.0); LYMPHOCYTES % 15.7 % (18.0-39.1); MEAN CORPUSCULAR HEMOGLOBIN 25.5 pg (28-32); MEAN CORPUSCULAR HGB CONC 30.7 g/dL (31-35); MEAN CORPUSCULAR VOLUME 83.2 fL (81-99); MONOCYTES # (AUTO) 0.8 (0.2-0.8); MONOCYTES % 6.6 % (4.4-11.3); NEUTROPHILS # (AUTO) 9.6 (2.1-6.9); NEUTROPHILS % 75.4 % (38.7-80.0); PLATELET COUNT 408 x10e3/uL (140-360); RED BLOOD COUNT 4.35 x10e6/uL (4.3-5.7)
[2021-01-12 05:30] LABS: ALBUMIN 2.5 g/dL (3.5-5.0); ALBUMIN/GLOBULIN RATIO 0.6 (0.8-2.0); ANION GAP 15.4 mmol/L (8-16); CALCIUM 8.5 mg/dL (8.4-10.2); CREATININE, SERUM 0.98 mg/dL (0.72-1.25); MAGNESIUM 1.9 MG/DL (1.3-2.1); POTASSIUM 4.4 mmol/L (3.5-5.1)
[2021-01-12] MEDS: INSULIN LISPRO 100 UNIT/1 ML 3ML VIAL SQ SCH ×4 (09:36→21:33)
[2021-01-12] MEDS: PREGABALIN 75 MG CAP PO SCH ×2 (09:58→17:04)
[2021-01-12] MEDS: PANTOPRAZOLE SOD 40 MG TABEC PO SCH ×2 (09:58→17:04)
[2021-01-12] MEDS: METOPROLOL SUCCINATE 25 MG TAB XL PO SCH (09:58)
[2021-01-12] MEDS: ASPIRIN 81 MG CHEW TAB PO SCH (10:01)
[2021-01-12] MEDS: BACITRACIN ZINC 15 GM OINT TOP SCH (10:01)
[2021-01-12] MEDS: INSULIN GLARGINE 100 UNITS/ML VIAL SQ SCH ×2 (10:01→21:33)
[2021-01-12] MEDS ORDERED: SODIUM CHLORIDE 0.9% 50ML 50 ML ONE (11:11)
[2021-01-12] MEDS ORDERED: IOPAMIDOL 370 MG/ML 200 ML INFUS..BTL INJ ONE (11:11)
[2021-01-12] MEDS: METHYLPREDNISOLONE SOD SUCC 40 MG/ML VIAL 1ML IV SCH ×3 (11:56→19:51)
[2021-01-12] MEDS ORDERED: ALBUTEROL SULF 0.083% NEB SOLN 3 ML NEB NEB SCH (14:00)
[2021-01-12] MEDS: GUAIFENESIN 600MG/DEXTROMETHORPHAN 30MG TABSR PO SCH (17:04)
[2021-01-12] MEDS ORDERED: SODIUM CHLORIDE 0.9% 250ML 250 ML ONE (23:26)
[2021-01-13] VITALS (7 sets, daily range): BP systolic 121–169; BP diastolic 73–130
[2021-01-13] MEDS: METHYLPREDNISOLONE SOD SUCC 40 MG/ML VIAL 1ML IV SCH ×4 (03:41→21:07)
[2021-01-13] MEDS: Morphine 4mg Syringe 4 MG/ML INJ IV PRN ×6 (04:11→21:12)
[2021-01-13 06:18] LABS: BASOPHILS % 0.2 % (0.0-1.0); HEMATOCRIT 35.5 % (38.2-49.6); HEMOGLOBIN 11.4 g/dL (14.0-18.0); LYMPHOCYTES % 8.5 % (18.0-39.1); MEAN CORPUSCULAR HEMOGLOBIN 26.1 pg (28-32); MEAN CORPUSCULAR HGB CONC 32.1 g/dL (31-35); MEAN CORPUSCULAR VOLUME 81.2 fL (81-99); MONOCYTES # (AUTO) 0.3 (0.2-0.8); MONOCYTES % 2.2 % (4.4-11.3); NEUTROPHILS # (AUTO) 10.6 (2.1-6.9); NEUTROPHILS % 87.7 % (38.7-80.0); PLATELET COUNT 421 x10e3/uL (140-360); RED BLOOD COUNT 4.37 x10e6/uL (4.3-5.7); RED CELL DISTRIBUTION WIDTH 14.1 % (11.7-14.4)
[2021-01-13 06:37] LABS: ALBUMIN 2.6 g/dL (3.5-5.0); ALBUMIN/GLOBULIN RATIO 0.6 (0.8-2.0); ANION GAP 16.7 mmol/L (8-16); CALCIUM 8.5 mg/dL (8.4-10.2); CREATININE, SERUM 0.9 mg/dL (0.72-1.25); POTASSIUM 4.7 mmol/L (3.5-5.1)
[2021-01-13] MEDS: PANTOPRAZOLE SOD 40 MG TABEC PO SCH ×2 (09:27→16:55)
[2021-01-13] MEDS: CEFTRIAXONE 2 GM in SODIUM CHLORIDE 0.9% 100 ML IV SCH (09:27)
[2021-01-13] MEDS: ASPIRIN 81 MG CHEW TAB PO SCH (09:27)
[2021-01-13] MEDS: PREGABALIN 75 MG CAP PO SCH (09:27)
[2021-01-13] MEDS: GUAIFENESIN 600MG/DEXTROMETHORPHAN 30MG TABSR PO SCH ×2 (09:27→16:55)
[2021-01-13] MEDS: METOPROLOL SUCCINATE 25 MG TAB XL PO SCH (09:28)
[2021-01-13] MEDS: BACITRACIN ZINC 15 GM OINT TOP SCH (09:28)
[2021-01-13] MEDS: INSULIN GLARGINE 100 UNITS/ML VIAL SQ SCH ×2 (09:51→21:00)
[2021-01-13] MEDS: INSULIN LISPRO 100 UNIT/1 ML 3ML VIAL SQ SCH ×4 (09:52→21:00)
[2021-01-14] VITALS (7 sets, daily range): BP systolic 148–155; BP diastolic 76–86
[2021-01-14] MEDS: Morphine 4mg Syringe 4 MG/ML INJ IV PRN ×8 (00:30→22:11)
[2021-01-14] MEDS: LEVOFLOXACIN 750MG/D5W 150ML 150 ML IV SCH (01:05)
[2021-01-14] MEDS: METHYLPREDNISOLONE SOD SUCC 40 MG/ML VIAL 1ML IV SCH (03:40)
[2021-01-14 05:04] LABS: BASOPHILS % 0.1 % (0.0-1.0); EOSINOPHILS % 0.1 % (0.0-6.0); HEMATOCRIT 35.7 % (38.2-49.6); HEMOGLOBIN 11.5 g/dL (14.0-18.0); LYMPHOCYTES # (AUTO) 1.5 (1.0-3.2); LYMPHOCYTES % 8.3 % (18.0-39.1); MEAN CORPUSCULAR HEMOGLOBIN 26.3 pg (28-32); MEAN CORPUSCULAR HGB CONC 32.2 g/dL (31-35); MEAN CORPUSCULAR VOLUME 81.7 fL (81-99); MONOCYTES # (AUTO) 0.7 (0.2-0.8); MONOCYTES % 3.9 % (4.4-11.3); NEUTROPHILS # (AUTO) 15.7 (2.1-6.9); NEUTROPHILS % 86.3 % (38.7-80.0); PLATELET COUNT 395 x10e3/uL (140-360); RED BLOOD COUNT 4.37 x10e6/uL (4.3-5.7)
[2021-01-14] MEDS: INSULIN LISPRO 100 UNIT/1 ML 3ML VIAL SQ SCH ×4 (07:30→21:00)
[2021-01-14] MEDS: GUAIFENESIN 600MG/DEXTROMETHORPHAN 30MG TABSR PO SCH ×2 (09:00→17:00)
[2021-01-14] MEDS: METOPROLOL SUCCINATE 25 MG TAB XL PO SCH (09:00)
[2021-01-14] MEDS: PANTOPRAZOLE SOD 40 MG TABEC PO SCH ×2 (09:00→17:00)
[2021-01-14] MEDS: ASPIRIN 81 MG CHEW TAB PO SCH (09:00)
[2021-01-14] MEDS: CEFTRIAXONE 2 GM in SODIUM CHLORIDE 0.9% 100 ML IV SCH (09:00)
[2021-01-14] MEDS: INSULIN GLARGINE 100 UNITS/ML VIAL SQ SCH ×2 (09:00→22:03)
[2021-01-14 15:10] LABS: HIV 1&2 AB SCREEN NON-REACTIVE (NONREACTIVE)
[2021-01-14] MEDS: PREGABALIN 75 MG CAP PO SCH (17:00)
[2021-01-14] MEDS ORDERED: ZOLPIDEM TARTRATE 5 MG TAB PO PRN (22:30)
[2021-01-15] VITALS (7 sets, daily range): BP systolic 110–128; BP diastolic 53–77
[2021-01-15] MEDS: LEVOFLOXACIN 750MG/D5W 150ML 150 ML IV SCH (01:08)
[2021-01-15] MEDS: Morphine 4mg Syringe 4 MG/ML INJ IV PRN ×8 (01:09→22:37)
[2021-01-15] MEDS: INSULIN LISPRO 100 UNIT/1 ML 3ML VIAL SQ SCH ×4 (07:30→20:56)
[2021-01-15] MEDS: CEFTRIAXONE 2 GM in SODIUM CHLORIDE 0.9% 100 ML IV SCH (08:51)
[2021-01-15] MEDS: ASPIRIN 81 MG CHEW TAB PO SCH (08:51)
[2021-01-15] MEDS: PREDNISONE 20 MG TAB PO SCH (08:51)
[2021-01-15] MEDS: PREGABALIN 75 MG CAP PO SCH ×2 (08:51→16:43)
[2021-01-15] MEDS: GUAIFENESIN 600MG/DEXTROMETHORPHAN 30MG TABSR PO SCH ×2 (08:51→16:43)
[2021-01-15] MEDS: PANTOPRAZOLE SOD 40 MG TABEC PO SCH ×2 (08:51→16:43)
[2021-01-15] MEDS: METOPROLOL SUCCINATE 25 MG TAB XL PO SCH (08:52)
[2021-01-15] MEDS: INSULIN GLARGINE 100 UNITS/ML VIAL SQ SCH ×3 (08:52→20:56)
[2021-01-16] VITALS: BP 141/82
[2021-01-16] MEDS: Morphine 4mg Syringe 4 MG/ML INJ IV PRN ×4 (01:50→11:09)
[2021-01-16 04:00] VITALS: BP 114/64
[2021-01-16 05:50] LABS: BASOPHILS # (AUTO) 0.1 (0.0-0.1); BASOPHILS % 0.3 % (0.0-1.0); EOSINOPHILS % 0.2 % (0.0-6.0); HEMATOCRIT 33.9 % (38.2-49.6); HEMOGLOBIN 10.7 g/dL (14.0-18.0); LYMPHOCYTES # (AUTO) 3.1 (1.0-3.2); LYMPHOCYTES % 18.9 % (18.0-39.1); MEAN CORPUSCULAR HGB CONC 31.6 g/dL (31-35); MEAN CORPUSCULAR VOLUME 82.5 fL (81-99); MONOCYTES # (AUTO) 1.6 (0.2-0.8); MONOCYTES % 9.5 % (4.4-11.3); NEUTROPHILS # (AUTO) 10.9 (2.1-6.9); NEUTROPHILS % 66.1 % (38.7-80.0); PLATELET COUNT 310 x10e3/uL (140-360); RED BLOOD COUNT 4.11 x10e6/uL (4.3-5.7); RED CELL DISTRIBUTION WIDTH 14.4 % (11.7-14.4)
[2021-01-16 06:41] LABS: ANION GAP 12.2 mmol/L (8-16); CALCIUM 7.8 mg/dL (8.4-10.2); CREATININE, SERUM 0.79 mg/dL (0.72-1.25); POTASSIUM 4.2 mmol/L (3.5-5.1)
[2021-01-16 07:00] VITALS: BP 134/74
[2021-01-16] MEDS ORDERED: PREDNISONE10 MG PO (07:37)
[2021-01-16] MEDS ORDERED: ASPIRIN CHEW81 MG PO (07:37)
[2021-01-16] MEDS: INSULIN LISPRO 100 UNIT/1 ML 3ML VIAL SQ SCH ×2 (07:48→11:43)
[2021-01-16 07:56] VITALS: BP 134/74
[2021-01-16] MEDS: METOPROLOL SUCCINATE 25 MG TAB XL PO SCH (10:16)
[2021-01-16] MEDS: PREDNISONE 20 MG TAB PO SCH (10:16)
[2021-01-16] MEDS: ASPIRIN 81 MG CHEW TAB PO SCH (10:16)
[2021-01-16] MEDS: PANTOPRAZOLE SOD 40 MG TABEC PO SCH (10:16)
[2021-01-16] MEDS: CEFTRIAXONE 2 GM in SODIUM CHLORIDE 0.9% 100 ML IV SCH (10:16)
[2021-01-16] MEDS: PREGABALIN 75 MG CAP PO SCH (10:16)
[2021-01-16] MEDS: GUAIFENESIN 600MG/DEXTROMETHORPHAN 30MG TABSR PO SCH (10:16)
[2021-01-16] MEDS: INSULIN GLARGINE 100 UNITS/ML VIAL SQ SCH (10:24)
[2021-01-16 11:24] VITALS: BP 153/79
== END 2021-01-16 12:05 | disposition home or self-care (01) | DRG 871 ==
LOC: ER 00:17 → ERHOLD 02:22 → IMCU 04:08 → MED/SURG2 18:05
PROVIDERS: ADMIT Internal Medicine; ATTEND Internal Medicine
DX: A41.9 Sepsis, unspecified organism (principal); J18.9 Pneumonia, unspecified organism; J96.01 Acute respiratory failure with hypoxia; M86.171 Other acute osteomyelitis, right ankle and foot; Z68.42 Body mass index [BMI] 45.0-49.9, adult; N17.9 Acute kidney failure, unspecified; J82.81 Chronic eosinophilic pneumonia; L97.415 Non-pressure chronic ulcer of right heel and midfoot with muscle involvement without evidence of necrosis; I49.3 Ventricular premature depolarization; E11.621 Type 2 diabetes mellitus with foot ulcer; E11.69 Type 2 diabetes mellitus with other specified complication; Z88.0 Allergy status to penicillin; Z88.8 Allergy status to other drugs, medicaments and biological substances; Z88.1 Allergy status to other antibiotic agents; Z91.040 Latex allergy status; E11.42 Type 2 diabetes mellitus with diabetic polyneuropathy; E11.610 Type 2 diabetes mellitus with diabetic neuropathic arthropathy; I25.10 Atherosclerotic heart disease of native coronary artery without angina pectoris; E66.01 Morbid (severe) obesity due to excess calories; D64.9 Anemia, unspecified; E78.5 Hyperlipidemia, unspecified; J70.3 Chronic drug-induced interstitial lung disorders; T36.8X5A Adverse effect of other systemic antibiotics, initial encounter; Z20.822 Contact with and (suspected) exposure to COVID-19; E87.5 Hyperkalemia; I27.20 Pulmonary hypertension, unspecified
CPT/HCPCS: 36415; 36600; 71045; 71260; 74177; 74230; 80048; 80053; 82550; 82553; 82805; 82948; 83036; 83605; 83735; 83880; 84100; 84132; 84484; 85007; 85025; 85027; 85651; 86021; 86039; 86141; 86200; 86431; 87040; 87390; 93005; 93306; 94640; 94799; 96360; 96372; 97139; 97605; 99251; 99284; G0433; G0435; J0696; J1644; J1815; J2020; J2270; J2405; J2920; J2930; J7030; J7050; J7512; Q9967; U0002

== ENCOUNTER → 2021-01-23 | Outpatient (CLI) | payer BC ==
[~2021-01-23] MED LIST changes: +ASPIRIN CHEW81 MG PO; +PREDNISONE10 MG PO
== END ==
LOC: WCC 11:06
PROVIDERS: ATTEND Internal Medicine Infectious Disease
DX: E11.621 Type 2 diabetes mellitus with foot ulcer (principal); E11.40 Type 2 diabetes mellitus with diabetic neuropathy, unspecified; E11.65 Type 2 diabetes mellitus with hyperglycemia; M86.171 Other acute osteomyelitis, right ankle and foot; L97.411 Non-pressure chronic ulcer of right heel and midfoot limited to breakdown of skin; L97.416 Non-pressure chronic ulcer of right heel and midfoot with bone involvement without evidence of necrosis; I70.203 Unspecified atherosclerosis of native arteries of extremities, bilateral legs; M14.671 Charcot's joint, right ankle and foot; I10 Essential (primary) hypertension; D64.9 Anemia, unspecified; E78.49 Other hyperlipidemia; I25.10 Atherosclerotic heart disease of native coronary artery without angina pectoris; E66.01 Morbid (severe) obesity due to excess calories

== ENCOUNTER → 2021-01-26 | Outpatient (CLI) | payer BC | LOC: WCC 10:44 | PROVIDERS: ATTEND Internal Medicine Infectious Disease | DX: E11.621 Type 2 diabetes mellitus with foot ulcer (principal); E11.40 Type 2 diabetes mellitus with diabetic neuropathy, unspecified; E11.65 Type 2 diabetes mellitus with hyperglycemia; M86.171 Other acute osteomyelitis, right ankle and foot; L97.416 Non-pressure chronic ulcer of right heel and midfoot with bone involvement without evidence of necrosis; L97.411 Non-pressure chronic ulcer of right heel and midfoot limited to breakdown of skin; I70.203 Unspecified atherosclerosis of native arteries of extremities, bilateral legs; M14.671 Charcot's joint, right ankle and foot; I25.10 Atherosclerotic heart disease of native coronary artery without angina pectoris; I10 Essential (primary) hypertension; E78.49 Other hyperlipidemia; D64.9 Anemia, unspecified; E66.01 Morbid (severe) obesity due to excess calories ==

== ENCOUNTER → 2021-01-30 | Outpatient (CLI) | payer BC | LOC: WCC 11:23 | PROVIDERS: ATTEND Internal Medicine Infectious Disease | DX: E11.621 Type 2 diabetes mellitus with foot ulcer (principal); E11.40 Type 2 diabetes mellitus with diabetic neuropathy, unspecified; E11.65 Type 2 diabetes mellitus with hyperglycemia; M86.171 Other acute osteomyelitis, right ankle and foot; L97.411 Non-pressure chronic ulcer of right heel and midfoot limited to breakdown of skin; L97.416 Non-pressure chronic ulcer of right heel and midfoot with bone involvement without evidence of necrosis; M14.671 Charcot's joint, right ankle and foot; J18.9 Pneumonia, unspecified organism; I70.203 Unspecified atherosclerosis of native arteries of extremities, bilateral legs; I25.10 Atherosclerotic heart disease of native coronary artery without angina pectoris; I10 Essential (primary) hypertension; D64.9 Anemia, unspecified; E78.49 Other hyperlipidemia; E66.01 Morbid (severe) obesity due to excess calories; Z01.811 Encounter for preprocedural respiratory examination ==

== ENCOUNTER → 2021-01-31 | Outpatient (CLI) | payer BC | LOC: WCC 09:32 | PROVIDERS: ATTEND Internal Medicine Infectious Disease | DX: E11.621 Type 2 diabetes mellitus with foot ulcer (principal); E11.40 Type 2 diabetes mellitus with diabetic neuropathy, unspecified; E11.65 Type 2 diabetes mellitus with hyperglycemia; L97.411 Non-pressure chronic ulcer of right heel and midfoot limited to breakdown of skin; L97.416 Non-pressure chronic ulcer of right heel and midfoot with bone involvement without evidence of necrosis; M86.171 Other acute osteomyelitis, right ankle and foot; I70.203 Unspecified atherosclerosis of native arteries of extremities, bilateral legs; J18.9 Pneumonia, unspecified organism; I10 Essential (primary) hypertension; M14.671 Charcot's joint, right ankle and foot; D64.9 Anemia, unspecified; E66.01 Morbid (severe) obesity due to excess calories; E78.49 Other hyperlipidemia; I25.10 Atherosclerotic heart disease of native coronary artery without angina pectoris; Z01.811 Encounter for preprocedural respiratory examination | CPT/HCPCS: 71046 ==

== ENCOUNTER → 2021-02-06 | Outpatient (CLI) | payer BC ==
[2021-02-06 13:08] LABS: ABG PH 7.43 (7.35-7.45)
[2021-02-06 13:09] LABS: ABG HCO3 25 mmol/L (22-26); ABG PCO2 38 mmHg (35-45); ABG PO2 89 mmHg (80-105); ABG TCO2 26
== END ==
LOC: LAB 12:37
PROVIDERS: ATTEND Family Medicine Adult Medicine
DX: E11.621 Type 2 diabetes mellitus with foot ulcer (principal); L97.411 Non-pressure chronic ulcer of right heel and midfoot limited to breakdown of skin
CPT/HCPCS: 36415; 82805

== ENCOUNTER → 2021-02-06 | Outpatient (CLI) | payer BC | LOC: WCC 10:55 | PROVIDERS: ATTEND Internal Medicine Infectious Disease | DX: E11.621 Type 2 diabetes mellitus with foot ulcer (principal); E11.40 Type 2 diabetes mellitus with diabetic neuropathy, unspecified; E11.65 Type 2 diabetes mellitus with hyperglycemia; M86.171 Other acute osteomyelitis, right ankle and foot; J18.9 Pneumonia, unspecified organism; L97.411 Non-pressure chronic ulcer of right heel and midfoot limited to breakdown of skin; L97.416 Non-pressure chronic ulcer of right heel and midfoot with bone involvement without evidence of necrosis; M14.671 Charcot's joint, right ankle and foot; I70.203 Unspecified atherosclerosis of native arteries of extremities, bilateral legs; I10 Essential (primary) hypertension; I25.10 Atherosclerotic heart disease of native coronary artery without angina pectoris; D64.9 Anemia, unspecified; E78.49 Other hyperlipidemia; E66.01 Morbid (severe) obesity due to excess calories; Z01.811 Encounter for preprocedural respiratory examination ==

== ENCOUNTER → 2021-02-10 | Outpatient (CLI) | payer BC | LOC: WCC 14:39 | PROVIDERS: ATTEND Internal Medicine Infectious Disease | DX: E11.621 Type 2 diabetes mellitus with foot ulcer (principal); E11.40 Type 2 diabetes mellitus with diabetic neuropathy, unspecified; E11.65 Type 2 diabetes mellitus with hyperglycemia; M86.171 Other acute osteomyelitis, right ankle and foot; L97.411 Non-pressure chronic ulcer of right heel and midfoot limited to breakdown of skin; L97.416 Non-pressure chronic ulcer of right heel and midfoot with bone involvement without evidence of necrosis; I70.203 Unspecified atherosclerosis of native arteries of extremities, bilateral legs; J18.9 Pneumonia, unspecified organism; M14.671 Charcot's joint, right ankle and foot; I25.10 Atherosclerotic heart disease of native coronary artery without angina pectoris; I10 Essential (primary) hypertension; D64.9 Anemia, unspecified; E78.49 Other hyperlipidemia; E66.01 Morbid (severe) obesity due to excess calories; Z01.811 Encounter for preprocedural respiratory examination ==

== ENCOUNTER → 2021-02-13 | Outpatient (CLI) | payer BC | LOC: WCC 12:03 | PROVIDERS: ATTEND Internal Medicine Infectious Disease | DX: E11.621 Type 2 diabetes mellitus with foot ulcer (principal); E11.40 Type 2 diabetes mellitus with diabetic neuropathy, unspecified; E11.65 Type 2 diabetes mellitus with hyperglycemia; M86.171 Other acute osteomyelitis, right ankle and foot; J18.9 Pneumonia, unspecified organism; L97.411 Non-pressure chronic ulcer of right heel and midfoot limited to breakdown of skin; L97.416 Non-pressure chronic ulcer of right heel and midfoot with bone involvement without evidence of necrosis; I70.203 Unspecified atherosclerosis of native arteries of extremities, bilateral legs; M14.671 Charcot's joint, right ankle and foot; I25.10 Atherosclerotic heart disease of native coronary artery without angina pectoris; I10 Essential (primary) hypertension; D64.9 Anemia, unspecified; E78.49 Other hyperlipidemia; E66.01 Morbid (severe) obesity due to excess calories; Z01.811 Encounter for preprocedural respiratory examination ==

== ENCOUNTER → 2021-02-15 | Outpatient (CLI) | payer BC | LOC: WCC 11:25 | PROVIDERS: ATTEND Internal Medicine Infectious Disease | DX: E11.621 Type 2 diabetes mellitus with foot ulcer (principal); E11.40 Type 2 diabetes mellitus with diabetic neuropathy, unspecified; E11.65 Type 2 diabetes mellitus with hyperglycemia; M86.171 Other acute osteomyelitis, right ankle and foot; L97.411 Non-pressure chronic ulcer of right heel and midfoot limited to breakdown of skin; L97.416 Non-pressure chronic ulcer of right heel and midfoot with bone involvement without evidence of necrosis; J18.9 Pneumonia, unspecified organism; I70.203 Unspecified atherosclerosis of native arteries of extremities, bilateral legs; I10 Essential (primary) hypertension; I25.10 Atherosclerotic heart disease of native coronary artery without angina pectoris; D64.9 Anemia, unspecified; E78.49 Other hyperlipidemia; M14.671 Charcot's joint, right ankle and foot; E66.01 Morbid (severe) obesity due to excess calories; Z01.811 Encounter for preprocedural respiratory examination ==

== ENCOUNTER → 2021-02-17 | Outpatient (CLI) | payer BC | LOC: WCC 12:03 | PROVIDERS: ATTEND Internal Medicine Infectious Disease | DX: E11.621 Type 2 diabetes mellitus with foot ulcer (principal); E11.40 Type 2 diabetes mellitus with diabetic neuropathy, unspecified; E11.65 Type 2 diabetes mellitus with hyperglycemia; M86.171 Other acute osteomyelitis, right ankle and foot; J18.9 Pneumonia, unspecified organism; L97.411 Non-pressure chronic ulcer of right heel and midfoot limited to breakdown of skin; L97.416 Non-pressure chronic ulcer of right heel and midfoot with bone involvement without evidence of necrosis; I70.203 Unspecified atherosclerosis of native arteries of extremities, bilateral legs; I10 Essential (primary) hypertension; E78.49 Other hyperlipidemia; D64.9 Anemia, unspecified; I25.10 Atherosclerotic heart disease of native coronary artery without angina pectoris; M14.671 Charcot's joint, right ankle and foot; E66.01 Morbid (severe) obesity due to excess calories; Z01.811 Encounter for preprocedural respiratory examination ==

== ENCOUNTER → 2021-02-27 | Outpatient (CLI) | payer BC | LOC: WCC 14:04 | PROVIDERS: ATTEND Internal Medicine Infectious Disease | DX: E11.621 Type 2 diabetes mellitus with foot ulcer (principal); E11.40 Type 2 diabetes mellitus with diabetic neuropathy, unspecified; E11.65 Type 2 diabetes mellitus with hyperglycemia; M86.171 Other acute osteomyelitis, right ankle and foot; J18.9 Pneumonia, unspecified organism; L97.411 Non-pressure chronic ulcer of right heel and midfoot limited to breakdown of skin; L97.416 Non-pressure chronic ulcer of right heel and midfoot with bone involvement without evidence of necrosis; I70.203 Unspecified atherosclerosis of native arteries of extremities, bilateral legs; I10 Essential (primary) hypertension; I25.10 Atherosclerotic heart disease of native coronary artery without angina pectoris; E78.49 Other hyperlipidemia; D64.9 Anemia, unspecified; M14.671 Charcot's joint, right ankle and foot; E66.01 Morbid (severe) obesity due to excess calories; Z01.811 Encounter for preprocedural respiratory examination ==

== ENCOUNTER 2021-03-06 18:03 | Emergency (ER) | payer BC ==
[~2021-03-06] VITALS: Ht 188 cm; Wt 112.9 kg
[2021-03-06 20:31] LABS: BASOPHILS # (AUTO) 0.1 (0.0-0.1); BASOPHILS % 0.6 % (0.0-1.0); EOSINOPHILS # (AUTO) 0.1 (0.0-0.4); EOSINOPHILS % 0.8 % (0.0-6.0); HEMATOCRIT 41.8 % (38.2-49.6); HEMOGLOBIN 13.1 g/dL (14.0-18.0); LYMPHOCYTES # (AUTO) 3.1 (1.0-3.2); LYMPHOCYTES % 22.6 % (18.0-39.1); MEAN CORPUSCULAR HEMOGLOBIN 25.7 pg (28-32); MEAN CORPUSCULAR HGB CONC 31.3 g/dL (31-35); MEAN CORPUSCULAR VOLUME 82.1 fL (81-99); MONOCYTES # (AUTO) 1.1 (0.2-0.8); MONOCYTES % 8.4 % (4.4-11.3); NEUTROPHILS # (AUTO) 8.3 (2.1-6.9); NEUTROPHILS % 61.2 % (38.7-80.0); PLATELET COUNT 314 x10e3/uL (140-360); RED BLOOD COUNT 5.09 x10e6/uL (4.3-5.7); RED CELL DISTRIBUTION WIDTH 15.2 % (11.7-14.4)
[2021-03-06 20:36] LABS: INR 0.94; PROTHROMBIN TIME 13.3 seconds (11.9-14.5)
[2021-03-06 20:37] LABS: PARTIAL THROMBOPLASTIN TIME 25.1 seconds (23.8-35.5)
[2021-03-06 20:45] LABS: ALBUMIN 2.7 g/dL (3.5-5.0); ALBUMIN/GLOBULIN RATIO 0.7 (0.8-2.0); CALCIUM 8.5 mg/dL (8.4-10.2); CREATININE, SERUM 0.93 mg/dL (0.72-1.25)
[2021-03-06 20:52] LABS: CREATINE KINASE MB 1.1 ng/mL (0-5.0)
[2021-03-06 21:40] LABS: LYMPHOCYTES % (MANUAL) 25 % (19-48); MONOCYTES % (MANUAL) 6 % (3.4-9.0); NEUTROPHILS % (MANUAL) 63 % (40-74); PLATELET ESTIMATE ADEQUATE; PLATELET MORPHOLOGY COMMENT NORMAL; RBC MORPHOLOGY COMMENT NORMAL
== END 2021-03-06 21:10 | disposition home or self-care (01) ==
LOC: ER 18:08
DX: R06.02 Shortness of breath (principal); I10 Essential (primary) hypertension; E11.9 Type 2 diabetes mellitus without complications; I25.10 Atherosclerotic heart disease of native coronary artery without angina pectoris; E78.5 Hyperlipidemia, unspecified; Z79.82 Long term (current) use of aspirin; Z79.4 Long term (current) use of insulin; Z79.84 Long term (current) use of oral hypoglycemic drugs
CPT/HCPCS: 36415; 36600; 71250; 80053; 82550; 82553; 83880; 84484; 85025; 85610; 85730; 93005; 99283

== ENCOUNTER → 2021-03-16 | Outpatient (CLI) | payer BC | LOC: WCC 13:46 | PROVIDERS: ATTEND Internal Medicine Infectious Disease | DX: E11.621 Type 2 diabetes mellitus with foot ulcer (principal); E11.40 Type 2 diabetes mellitus with diabetic neuropathy, unspecified; E11.65 Type 2 diabetes mellitus with hyperglycemia; M86.171 Other acute osteomyelitis, right ankle and foot; L97.411 Non-pressure chronic ulcer of right heel and midfoot limited to breakdown of skin; L97.416 Non-pressure chronic ulcer of right heel and midfoot with bone involvement without evidence of necrosis; I70.203 Unspecified atherosclerosis of native arteries of extremities, bilateral legs; J18.9 Pneumonia, unspecified organism; I10 Essential (primary) hypertension; D64.9 Anemia, unspecified; E78.49 Other hyperlipidemia; I25.10 Atherosclerotic heart disease of native coronary artery without angina pectoris; M14.671 Charcot's joint, right ankle and foot; E66.01 Morbid (severe) obesity due to excess calories; Z01.811 Encounter for preprocedural respiratory examination | CPT/HCPCS: 36415; 82948 ==

== ENCOUNTER → 2021-03-20 | Outpatient (CLI) | payer BC | LOC: WCC 10:01 | PROVIDERS: ATTEND Internal Medicine Infectious Disease | DX: E11.621 Type 2 diabetes mellitus with foot ulcer (principal); E11.40 Type 2 diabetes mellitus with diabetic neuropathy, unspecified; E11.65 Type 2 diabetes mellitus with hyperglycemia; M86.171 Other acute osteomyelitis, right ankle and foot; J18.9 Pneumonia, unspecified organism; L97.416 Non-pressure chronic ulcer of right heel and midfoot with bone involvement without evidence of necrosis; L97.411 Non-pressure chronic ulcer of right heel and midfoot limited to breakdown of skin; I70.203 Unspecified atherosclerosis of native arteries of extremities, bilateral legs; I10 Essential (primary) hypertension; E78.49 Other hyperlipidemia; I25.10 Atherosclerotic heart disease of native coronary artery without angina pectoris; M14.671 Charcot's joint, right ankle and foot; D64.9 Anemia, unspecified; E66.01 Morbid (severe) obesity due to excess calories; Z01.811 Encounter for preprocedural respiratory examination ==

== ENCOUNTER → 2021-03-22 | Outpatient (CLI) | payer BC | LOC: WCC 10:09 | PROVIDERS: ATTEND Internal Medicine Infectious Disease | DX: E11.621 Type 2 diabetes mellitus with foot ulcer (principal); E11.40 Type 2 diabetes mellitus with diabetic neuropathy, unspecified; E11.65 Type 2 diabetes mellitus with hyperglycemia; M86.171 Other acute osteomyelitis, right ankle and foot; L97.416 Non-pressure chronic ulcer of right heel and midfoot with bone involvement without evidence of necrosis; I70.203 Unspecified atherosclerosis of native arteries of extremities, bilateral legs; J18.9 Pneumonia, unspecified organism; I10 Essential (primary) hypertension; D64.9 Anemia, unspecified; I25.10 Atherosclerotic heart disease of native coronary artery without angina pectoris; E78.49 Other hyperlipidemia; M14.671 Charcot's joint, right ankle and foot; E66.01 Morbid (severe) obesity due to excess calories; Z01.811 Encounter for preprocedural respiratory examination | CPT/HCPCS: 99213; G0277 ==

== ENCOUNTER → 2021-03-24 | Outpatient (CLI) | payer BC | LOC: WCC 09:05 | PROVIDERS: ATTEND Internal Medicine Infectious Disease | DX: E11.621 Type 2 diabetes mellitus with foot ulcer (principal); E11.40 Type 2 diabetes mellitus with diabetic neuropathy, unspecified; E11.65 Type 2 diabetes mellitus with hyperglycemia; M86.171 Other acute osteomyelitis, right ankle and foot; J18.9 Pneumonia, unspecified organism; L97.416 Non-pressure chronic ulcer of right heel and midfoot with bone involvement without evidence of necrosis; I10 Essential (primary) hypertension; D64.9 Anemia, unspecified; I70.203 Unspecified atherosclerosis of native arteries of extremities, bilateral legs; E78.49 Other hyperlipidemia; I25.10 Atherosclerotic heart disease of native coronary artery without angina pectoris; M14.671 Charcot's joint, right ankle and foot; E66.01 Morbid (severe) obesity due to excess calories; Z01.811 Encounter for preprocedural respiratory examination | CPT/HCPCS: 99213; G0277 ==

== ENCOUNTER → 2021-03-27 | Outpatient (CLI) | payer BC | LOC: WCC 13:21 | PROVIDERS: ATTEND Internal Medicine Infectious Disease | DX: E11.621 Type 2 diabetes mellitus with foot ulcer (principal); E11.40 Type 2 diabetes mellitus with diabetic neuropathy, unspecified; E11.65 Type 2 diabetes mellitus with hyperglycemia; M86.171 Other acute osteomyelitis, right ankle and foot; J18.9 Pneumonia, unspecified organism; L97.416 Non-pressure chronic ulcer of right heel and midfoot with bone involvement without evidence of necrosis; I70.203 Unspecified atherosclerosis of native arteries of extremities, bilateral legs; I10 Essential (primary) hypertension; D64.9 Anemia, unspecified; E78.49 Other hyperlipidemia; I25.10 Atherosclerotic heart disease of native coronary artery without angina pectoris; M14.671 Charcot's joint, right ankle and foot; E66.01 Morbid (severe) obesity due to excess calories; Z01.811 Encounter for preprocedural respiratory examination | CPT/HCPCS: 99212; G0277 ==

== ENCOUNTER → 2021-04-03 | Outpatient (CLI) | payer BC | LOC: MRI 10:44 | PROVIDERS: ATTEND Internal Medicine Infectious Disease | DX: M86.171 Other acute osteomyelitis, right ankle and foot (principal) ==

== ENCOUNTER → 2021-04-04 | Outpatient (CLI) | payer BC | LOC: WCC 10:30 | PROVIDERS: ATTEND Internal Medicine Infectious Disease | DX: E11.621 Type 2 diabetes mellitus with foot ulcer (principal); E11.40 Type 2 diabetes mellitus with diabetic neuropathy, unspecified; E11.65 Type 2 diabetes mellitus with hyperglycemia; M86.171 Other acute osteomyelitis, right ankle and foot; L97.416 Non-pressure chronic ulcer of right heel and midfoot with bone involvement without evidence of necrosis; I70.203 Unspecified atherosclerosis of native arteries of extremities, bilateral legs; J18.9 Pneumonia, unspecified organism; I10 Essential (primary) hypertension; D64.9 Anemia, unspecified; I25.10 Atherosclerotic heart disease of native coronary artery without angina pectoris; E78.49 Other hyperlipidemia; M14.671 Charcot's joint, right ankle and foot; E66.01 Morbid (severe) obesity due to excess calories; Z01.811 Encounter for preprocedural respiratory examination | CPT/HCPCS: 99213; G0277 ==

== ENCOUNTER → 2021-04-10 | Outpatient (CLI) | payer BC | LOC: WCC 09:57 | PROVIDERS: ATTEND Internal Medicine Infectious Disease | DX: E11.621 Type 2 diabetes mellitus with foot ulcer (principal); E11.40 Type 2 diabetes mellitus with diabetic neuropathy, unspecified; E11.65 Type 2 diabetes mellitus with hyperglycemia; M86.171 Other acute osteomyelitis, right ankle and foot; J18.9 Pneumonia, unspecified organism; L97.416 Non-pressure chronic ulcer of right heel and midfoot with bone involvement without evidence of necrosis; I70.203 Unspecified atherosclerosis of native arteries of extremities, bilateral legs; M14.671 Charcot's joint, right ankle and foot; I25.10 Atherosclerotic heart disease of native coronary artery without angina pectoris; I10 Essential (primary) hypertension; D64.9 Anemia, unspecified; E78.49 Other hyperlipidemia; E66.01 Morbid (severe) obesity due to excess calories; Z01.811 Encounter for preprocedural respiratory examination | CPT/HCPCS: 99212; G0277 ==

== ENCOUNTER → 2021-04-11 | Outpatient (CLI) | payer BC ==
[~2021-04-11] MED LIST changes: +MINERAL OIL/PETROLAT/GLYCERI 6OZ BTL ONE
== END ==
LOC: WCC 12:12
PROVIDERS: ATTEND Internal Medicine Infectious Disease
DX: E11.621 Type 2 diabetes mellitus with foot ulcer (principal); E11.40 Type 2 diabetes mellitus with diabetic neuropathy, unspecified; E11.65 Type 2 diabetes mellitus with hyperglycemia; M86.171 Other acute osteomyelitis, right ankle and foot; J18.9 Pneumonia, unspecified organism; L97.416 Non-pressure chronic ulcer of right heel and midfoot with bone involvement without evidence of necrosis; I70.203 Unspecified atherosclerosis of native arteries of extremities, bilateral legs; I25.10 Atherosclerotic heart disease of native coronary artery without angina pectoris; I10 Essential (primary) hypertension; D64.9 Anemia, unspecified; E78.49 Other hyperlipidemia; E66.01 Morbid (severe) obesity due to excess calories; Z01.811 Encounter for preprocedural respiratory examination
CPT/HCPCS: 36415; 82948; 99212; G0277

== ENCOUNTER → 2021-04-13 | Outpatient (CLI) | payer BC ==
[~2021-04-13] MED LIST changes: -MINERAL OIL/PETROLAT/GLYCERI 6OZ BTL ONE
== END ==
LOC: WCC 10:34
PROVIDERS: ATTEND Internal Medicine Infectious Disease
DX: E11.621 Type 2 diabetes mellitus with foot ulcer (principal); E11.40 Type 2 diabetes mellitus with diabetic neuropathy, unspecified; E11.65 Type 2 diabetes mellitus with hyperglycemia; M86.171 Other acute osteomyelitis, right ankle and foot; J18.9 Pneumonia, unspecified organism; L97.416 Non-pressure chronic ulcer of right heel and midfoot with bone involvement without evidence of necrosis; I70.203 Unspecified atherosclerosis of native arteries of extremities, bilateral legs; I10 Essential (primary) hypertension; I25.10 Atherosclerotic heart disease of native coronary artery without angina pectoris; E78.49 Other hyperlipidemia; D64.9 Anemia, unspecified; M14.671 Charcot's joint, right ankle and foot; E66.01 Morbid (severe) obesity due to excess calories; Z01.811 Encounter for preprocedural respiratory examination
CPT/HCPCS: 99212; G0277

== ENCOUNTER → 2021-04-14 | Outpatient (CLI) | payer BC | LOC: WCC 09:10 | PROVIDERS: ATTEND Internal Medicine Infectious Disease | DX: E11.621 Type 2 diabetes mellitus with foot ulcer (principal); E11.40 Type 2 diabetes mellitus with diabetic neuropathy, unspecified; E11.65 Type 2 diabetes mellitus with hyperglycemia; M86.171 Other acute osteomyelitis, right ankle and foot; J18.9 Pneumonia, unspecified organism; L97.416 Non-pressure chronic ulcer of right heel and midfoot with bone involvement without evidence of necrosis; I70.203 Unspecified atherosclerosis of native arteries of extremities, bilateral legs; I10 Essential (primary) hypertension; I25.10 Atherosclerotic heart disease of native coronary artery without angina pectoris; D64.9 Anemia, unspecified; E78.49 Other hyperlipidemia; M14.671 Charcot's joint, right ankle and foot; E66.01 Morbid (severe) obesity due to excess calories; Z01.811 Encounter for preprocedural respiratory examination | CPT/HCPCS: 99213; G0277 ==

== ENCOUNTER → 2021-04-17 | Outpatient (CLI) | payer BC | LOC: WCC 10:45 | PROVIDERS: ATTEND Internal Medicine Infectious Disease | DX: E11.621 Type 2 diabetes mellitus with foot ulcer (principal); E11.40 Type 2 diabetes mellitus with diabetic neuropathy, unspecified; E11.65 Type 2 diabetes mellitus with hyperglycemia; M86.171 Other acute osteomyelitis, right ankle and foot; J18.9 Pneumonia, unspecified organism; L97.416 Non-pressure chronic ulcer of right heel and midfoot with bone involvement without evidence of necrosis; I70.203 Unspecified atherosclerosis of native arteries of extremities, bilateral legs; I25.10 Atherosclerotic heart disease of native coronary artery without angina pectoris; E78.49 Other hyperlipidemia; D64.9 Anemia, unspecified; M14.671 Charcot's joint, right ankle and foot; I10 Essential (primary) hypertension; E66.01 Morbid (severe) obesity due to excess calories; Z01.811 Encounter for preprocedural respiratory examination | CPT/HCPCS: 99213; G0277 ==

== ENCOUNTER → 2021-04-19 | Outpatient (CLI) | payer BC | LOC: WCC 11:19 | PROVIDERS: ATTEND Family Medicine | DX: E11.621 Type 2 diabetes mellitus with foot ulcer (principal); E11.40 Type 2 diabetes mellitus with diabetic neuropathy, unspecified; E11.65 Type 2 diabetes mellitus with hyperglycemia; M86.171 Other acute osteomyelitis, right ankle and foot; J18.9 Pneumonia, unspecified organism; L97.416 Non-pressure chronic ulcer of right heel and midfoot with bone involvement without evidence of necrosis; I70.203 Unspecified atherosclerosis of native arteries of extremities, bilateral legs; I10 Essential (primary) hypertension; I25.10 Atherosclerotic heart disease of native coronary artery without angina pectoris; E78.49 Other hyperlipidemia; D64.9 Anemia, unspecified; M14.671 Charcot's joint, right ankle and foot; E66.01 Morbid (severe) obesity due to excess calories; Z01.811 Encounter for preprocedural respiratory examination | CPT/HCPCS: 36415; 82948; G0277; 87071; 87075; 87205 ==

== ENCOUNTER → 2021-04-21 | Outpatient (CLI) | payer BC ==
[2021-04-21 16:37] LABS: BASOPHILS # (AUTO) 0.1 (0.0-0.1); BASOPHILS % 1.1 % (0.0-1.0); EOSINOPHILS # (AUTO) 0.3 (0.0-0.4); EOSINOPHILS % 3.3 % (0.0-6.0); HEMATOCRIT 39.5 % (38.2-49.6); HEMOGLOBIN 12.1 g/dL (14.0-18.0); LYMPHOCYTES # (AUTO) 3.5 (1.0-3.2); LYMPHOCYTES % 34.5 % (18.0-39.1); MEAN CORPUSCULAR HEMOGLOBIN 25.7 pg (28-32); MEAN CORPUSCULAR HGB CONC 30.6 g/dL (31-35); MEAN CORPUSCULAR VOLUME 83.9 fL (81-99); MONOCYTES # (AUTO) 1.1 (0.2-0.8); MONOCYTES % 10.3 % (4.4-11.3); NEUTROPHILS # (AUTO) 5.1 (2.1-6.9); PLATELET COUNT 431 x10e3/uL (140-360); RED BLOOD COUNT 4.71 x10e6/uL (4.3-5.7); RED CELL DISTRIBUTION WIDTH 13.8 % (11.7-14.4)
[2021-04-21 16:53] LABS: ALBUMIN 3.3 g/dL (3.5-5.0); ALBUMIN/GLOBULIN RATIO 0.7 (0.8-2.0); ANION GAP 17.7 mmol/L (8-16); CALCIUM 9.5 mg/dL (8.4-10.2); CREATININE, SERUM 1.02 mg/dL (0.72-1.25); POTASSIUM 3.7 mmol/L (3.5-5.1)
== END ==
LOC: WCC 13:43
PROVIDERS: ATTEND Family Medicine
DX: E11.621 Type 2 diabetes mellitus with foot ulcer (principal); E11.40 Type 2 diabetes mellitus with diabetic neuropathy, unspecified; E11.65 Type 2 diabetes mellitus with hyperglycemia; M86.171 Other acute osteomyelitis, right ankle and foot; J18.9 Pneumonia, unspecified organism; L97.416 Non-pressure chronic ulcer of right heel and midfoot with bone involvement without evidence of necrosis; I70.203 Unspecified atherosclerosis of native arteries of extremities, bilateral legs; I10 Essential (primary) hypertension; E78.49 Other hyperlipidemia; I25.10 Atherosclerotic heart disease of native coronary artery without angina pectoris; D64.9 Anemia, unspecified; M14.671 Charcot's joint, right ankle and foot; E66.01 Morbid (severe) obesity due to excess calories; Z01.811 Encounter for preprocedural respiratory examination
CPT/HCPCS: 36415; 80053; 83036; 84134; 85025; 85651; 86141; 99212; G0277

== ENCOUNTER → 2021-04-25 | Outpatient (CLI) | payer BC | LOC: WCC 11:51 | PROVIDERS: ATTEND Family Medicine | DX: E11.621 Type 2 diabetes mellitus with foot ulcer (principal); E11.40 Type 2 diabetes mellitus with diabetic neuropathy, unspecified; E11.65 Type 2 diabetes mellitus with hyperglycemia; M86.171 Other acute osteomyelitis, right ankle and foot; L97.416 Non-pressure chronic ulcer of right heel and midfoot with bone involvement without evidence of necrosis; I70.203 Unspecified atherosclerosis of native arteries of extremities, bilateral legs; J18.9 Pneumonia, unspecified organism; I25.10 Atherosclerotic heart disease of native coronary artery without angina pectoris; I10 Essential (primary) hypertension; E78.49 Other hyperlipidemia; D64.9 Anemia, unspecified; M14.671 Charcot's joint, right ankle and foot; E66.01 Morbid (severe) obesity due to excess calories; Z01.811 Encounter for preprocedural respiratory examination ==

== ENCOUNTER → 2021-04-26 | Outpatient (CLI) | payer BC | LOC: WCC 09:31 | PROVIDERS: ATTEND Family Medicine | DX: E11.621 Type 2 diabetes mellitus with foot ulcer (principal); E11.40 Type 2 diabetes mellitus with diabetic neuropathy, unspecified; E11.65 Type 2 diabetes mellitus with hyperglycemia; M86.171 Other acute osteomyelitis, right ankle and foot; J18.9 Pneumonia, unspecified organism; L97.416 Non-pressure chronic ulcer of right heel and midfoot with bone involvement without evidence of necrosis; I70.203 Unspecified atherosclerosis of native arteries of extremities, bilateral legs; I10 Essential (primary) hypertension; D64.9 Anemia, unspecified; E78.49 Other hyperlipidemia; I25.10 Atherosclerotic heart disease of native coronary artery without angina pectoris; M14.671 Charcot's joint, right ankle and foot; E66.01 Morbid (severe) obesity due to excess calories; Z01.811 Encounter for preprocedural respiratory examination ==

== ENCOUNTER → 2021-04-27 | Outpatient (CLI) | payer BC | LOC: WCC 10:30 | PROVIDERS: ATTEND Family Medicine | DX: E11.621 Type 2 diabetes mellitus with foot ulcer (principal); E11.40 Type 2 diabetes mellitus with diabetic neuropathy, unspecified; E11.65 Type 2 diabetes mellitus with hyperglycemia; M86.171 Other acute osteomyelitis, right ankle and foot; J18.9 Pneumonia, unspecified organism; L97.416 Non-pressure chronic ulcer of right heel and midfoot with bone involvement without evidence of necrosis; I70.203 Unspecified atherosclerosis of native arteries of extremities, bilateral legs; M14.671 Charcot's joint, right ankle and foot; I25.10 Atherosclerotic heart disease of native coronary artery without angina pectoris; I10 Essential (primary) hypertension; E78.49 Other hyperlipidemia; D64.9 Anemia, unspecified; E66.01 Morbid (severe) obesity due to excess calories; Z01.811 Encounter for preprocedural respiratory examination | CPT/HCPCS: 97605; 99212; G0277 ==

== ENCOUNTER → 2021-05-02 | Outpatient (CLI) | payer BC | LOC: WCC 13:01 | PROVIDERS: ATTEND Family Medicine | DX: E11.621 Type 2 diabetes mellitus with foot ulcer (principal); E11.40 Type 2 diabetes mellitus with diabetic neuropathy, unspecified; E11.65 Type 2 diabetes mellitus with hyperglycemia; M86.171 Other acute osteomyelitis, right ankle and foot; J18.9 Pneumonia, unspecified organism; L97.416 Non-pressure chronic ulcer of right heel and midfoot with bone involvement without evidence of necrosis; I70.203 Unspecified atherosclerosis of native arteries of extremities, bilateral legs; M14.671 Charcot's joint, right ankle and foot; I10 Essential (primary) hypertension; I25.10 Atherosclerotic heart disease of native coronary artery without angina pectoris; E78.49 Other hyperlipidemia; D64.9 Anemia, unspecified; E66.01 Morbid (severe) obesity due to excess calories; Z01.811 Encounter for preprocedural respiratory examination | CPT/HCPCS: 99212; G0277 ==

== ENCOUNTER → 2021-05-03 | Outpatient (CLI) | payer BC | LOC: WCC 14:15 | PROVIDERS: ATTEND Family Medicine | DX: E11.621 Type 2 diabetes mellitus with foot ulcer (principal); E11.40 Type 2 diabetes mellitus with diabetic neuropathy, unspecified; E11.65 Type 2 diabetes mellitus with hyperglycemia; M86.171 Other acute osteomyelitis, right ankle and foot; J18.9 Pneumonia, unspecified organism; L97.416 Non-pressure chronic ulcer of right heel and midfoot with bone involvement without evidence of necrosis; I70.203 Unspecified atherosclerosis of native arteries of extremities, bilateral legs; I10 Essential (primary) hypertension; E78.49 Other hyperlipidemia; D64.9 Anemia, unspecified; I25.10 Atherosclerotic heart disease of native coronary artery without angina pectoris; M14.671 Charcot's joint, right ankle and foot; E66.01 Morbid (severe) obesity due to excess calories; Z01.811 Encounter for preprocedural respiratory examination | CPT/HCPCS: 97605; 99213; G0277 ==

== ENCOUNTER → 2021-05-05 | Outpatient (CLI) | payer BC | LOC: WCC 11:09 | PROVIDERS: ATTEND Family Medicine | DX: E11.621 Type 2 diabetes mellitus with foot ulcer (principal); E11.40 Type 2 diabetes mellitus with diabetic neuropathy, unspecified; E11.65 Type 2 diabetes mellitus with hyperglycemia; M86.171 Other acute osteomyelitis, right ankle and foot; J18.9 Pneumonia, unspecified organism; L97.416 Non-pressure chronic ulcer of right heel and midfoot with bone involvement without evidence of necrosis; I70.203 Unspecified atherosclerosis of native arteries of extremities, bilateral legs; I10 Essential (primary) hypertension; I25.10 Atherosclerotic heart disease of native coronary artery without angina pectoris; D64.9 Anemia, unspecified; E78.49 Other hyperlipidemia; M14.671 Charcot's joint, right ankle and foot; E66.01 Morbid (severe) obesity due to excess calories; Z01.811 Encounter for preprocedural respiratory examination | CPT/HCPCS: 99212; G0277 ==

== ENCOUNTER → 2021-05-15 | Outpatient (CLI) | payer BC ==
[~2021-05-15] MED LIST changes: +LIDOCAINE VISC 2% SOLN 15 ML UDC ONE; +MUPIROCIN 2% OINT 22 GM TUBE ONE
== END ==
LOC: WCC 12:33
PROVIDERS: ATTEND Family Medicine
DX: E11.621 Type 2 diabetes mellitus with foot ulcer (principal); M86.171 Other acute osteomyelitis, right ankle and foot; J18.9 Pneumonia, unspecified organism; L97.416 Non-pressure chronic ulcer of right heel and midfoot with bone involvement without evidence of necrosis; I70.203 Unspecified atherosclerosis of native arteries of extremities, bilateral legs; I25.10 Atherosclerotic heart disease of native coronary artery without angina pectoris; I10 Essential (primary) hypertension; E78.49 Other hyperlipidemia; D64.9 Anemia, unspecified; M14.671 Charcot's joint, right ankle and foot; E66.01 Morbid (severe) obesity due to excess calories; Z01.811 Encounter for preprocedural respiratory examination
CPT/HCPCS: 36415; 82948; 99213; G0277

== ENCOUNTER → 2021-05-16 | Outpatient (CLI) | payer BC ==
[~2021-05-16] MED LIST changes: -LIDOCAINE VISC 2% SOLN 15 ML UDC ONE; -MUPIROCIN 2% OINT 22 GM TUBE ONE
== END ==
LOC: WCC 12:53
PROVIDERS: ATTEND Family Medicine
DX: E11.621 Type 2 diabetes mellitus with foot ulcer (principal); E11.40 Type 2 diabetes mellitus with diabetic neuropathy, unspecified; E11.65 Type 2 diabetes mellitus with hyperglycemia; M86.171 Other acute osteomyelitis, right ankle and foot; J18.9 Pneumonia, unspecified organism; I70.203 Unspecified atherosclerosis of native arteries of extremities, bilateral legs; D64.9 Anemia, unspecified; I25.10 Atherosclerotic heart disease of native coronary artery without angina pectoris; I10 Essential (primary) hypertension; E78.49 Other hyperlipidemia; M14.671 Charcot's joint, right ankle and foot; E66.01 Morbid (severe) obesity due to excess calories; Z01.811 Encounter for preprocedural respiratory examination
CPT/HCPCS: 99212; G0277

== ENCOUNTER → 2021-05-17 | Outpatient (CLI) | payer BC | LOC: WCC 13:14 | PROVIDERS: ATTEND Family Medicine | DX: E11.621 Type 2 diabetes mellitus with foot ulcer (principal); E11.40 Type 2 diabetes mellitus with diabetic neuropathy, unspecified; E11.65 Type 2 diabetes mellitus with hyperglycemia; M86.171 Other acute osteomyelitis, right ankle and foot; J18.9 Pneumonia, unspecified organism; L97.416 Non-pressure chronic ulcer of right heel and midfoot with bone involvement without evidence of necrosis; I70.203 Unspecified atherosclerosis of native arteries of extremities, bilateral legs; I10 Essential (primary) hypertension; D64.9 Anemia, unspecified; E78.49 Other hyperlipidemia; I25.10 Atherosclerotic heart disease of native coronary artery without angina pectoris; M14.671 Charcot's joint, right ankle and foot; E66.01 Morbid (severe) obesity due to excess calories; Z01.811 Encounter for preprocedural respiratory examination | CPT/HCPCS: 11042; 99213; G0277 ==

== ENCOUNTER → 2021-05-23 | Outpatient (CLI) | payer BC | LOC: WCC 11:49 | PROVIDERS: ATTEND Family Medicine | DX: E11.621 Type 2 diabetes mellitus with foot ulcer (principal); E11.40 Type 2 diabetes mellitus with diabetic neuropathy, unspecified; E11.65 Type 2 diabetes mellitus with hyperglycemia; M86.171 Other acute osteomyelitis, right ankle and foot; J18.9 Pneumonia, unspecified organism; L97.416 Non-pressure chronic ulcer of right heel and midfoot with bone involvement without evidence of necrosis; I70.203 Unspecified atherosclerosis of native arteries of extremities, bilateral legs; I10 Essential (primary) hypertension; I25.10 Atherosclerotic heart disease of native coronary artery without angina pectoris; E78.49 Other hyperlipidemia; D64.9 Anemia, unspecified; M14.671 Charcot's joint, right ankle and foot; E66.01 Morbid (severe) obesity due to excess calories; Z01.811 Encounter for preprocedural respiratory examination | CPT/HCPCS: 99213; G0277 ==

== ENCOUNTER → 2021-06-05 | Outpatient (CLI) | payer BC | LOC: WCC 12:26 | PROVIDERS: ATTEND Family Medicine | DX: E11.621 Type 2 diabetes mellitus with foot ulcer (principal); E11.40 Type 2 diabetes mellitus with diabetic neuropathy, unspecified; E11.65 Type 2 diabetes mellitus with hyperglycemia; M86.171 Other acute osteomyelitis, right ankle and foot; L97.416 Non-pressure chronic ulcer of right heel and midfoot with bone involvement without evidence of necrosis; I70.203 Unspecified atherosclerosis of native arteries of extremities, bilateral legs; J18.9 Pneumonia, unspecified organism; I10 Essential (primary) hypertension; E78.49 Other hyperlipidemia; I25.10 Atherosclerotic heart disease of native coronary artery without angina pectoris; D64.9 Anemia, unspecified; M14.671 Charcot's joint, right ankle and foot; E66.01 Morbid (severe) obesity due to excess calories; Z01.811 Encounter for preprocedural respiratory examination | CPT/HCPCS: 99213; G0277 ==

== ENCOUNTER → 2021-06-13 | Outpatient (CLI) | payer BC ==
[~2021-06-13] MED LIST changes: +LIDOCAINE/PRILOCAINE 2.5-2.5% KIT ONE
== END ==
LOC: WCC 13:49
PROVIDERS: ATTEND Family Medicine
DX: E11.621 Type 2 diabetes mellitus with foot ulcer (principal); E11.40 Type 2 diabetes mellitus with diabetic neuropathy, unspecified; E11.65 Type 2 diabetes mellitus with hyperglycemia; M86.171 Other acute osteomyelitis, right ankle and foot; L97.416 Non-pressure chronic ulcer of right heel and midfoot with bone involvement without evidence of necrosis; J18.9 Pneumonia, unspecified organism; I70.203 Unspecified atherosclerosis of native arteries of extremities, bilateral legs; I10 Essential (primary) hypertension; I25.10 Atherosclerotic heart disease of native coronary artery without angina pectoris; E78.49 Other hyperlipidemia; D64.9 Anemia, unspecified; M14.671 Charcot's joint, right ankle and foot; E66.01 Morbid (severe) obesity due to excess calories; Z01.811 Encounter for preprocedural respiratory examination
CPT/HCPCS: 36415; 82948; 99212; G0277

== ENCOUNTER → 2021-06-14 | Outpatient (CLI) | payer BC ==
[~2021-06-14] MED LIST changes: -LIDOCAINE/PRILOCAINE 2.5-2.5% KIT ONE
== END ==
LOC: WCC 10:00
PROVIDERS: ATTEND Family Medicine
DX: E11.621 Type 2 diabetes mellitus with foot ulcer (principal); E11.40 Type 2 diabetes mellitus with diabetic neuropathy, unspecified; E11.65 Type 2 diabetes mellitus with hyperglycemia; M86.171 Other acute osteomyelitis, right ankle and foot; J18.9 Pneumonia, unspecified organism; L97.416 Non-pressure chronic ulcer of right heel and midfoot with bone involvement without evidence of necrosis; I70.203 Unspecified atherosclerosis of native arteries of extremities, bilateral legs; I25.10 Atherosclerotic heart disease of native coronary artery without angina pectoris; I10 Essential (primary) hypertension; E78.49 Other hyperlipidemia; D64.9 Anemia, unspecified; M14.671 Charcot's joint, right ankle and foot; E66.01 Morbid (severe) obesity due to excess calories; Z01.811 Encounter for preprocedural respiratory examination

== ENCOUNTER → 2021-06-15 | Outpatient (CLI) | payer BC | LOC: WCC 13:39 | PROVIDERS: ATTEND Family Medicine | DX: E11.65 Type 2 diabetes mellitus with hyperglycemia (principal); Y84.8 Other medical procedures as the cause of abnormal reaction of the patient, or of later complication, without mention of misadventure at the time of the procedure; L97.321 Non-pressure chronic ulcer of left ankle limited to breakdown of skin; I70.243 Atherosclerosis of native arteries of left leg with ulceration of ankle; I79.8 Other disorders of arteries, arterioles and capillaries in diseases classified elsewhere; I87.2 Venous insufficiency (chronic) (peripheral); R60.0 Localized edema; M1A.9XX0 Chronic gout, unspecified, without tophus (tophi); I10 Essential (primary) hypertension; I25.10 Atherosclerotic heart disease of native coronary artery without angina pectoris; D64.9 Anemia, unspecified; F32.9 Major depressive disorder, single episode, unspecified; F41.1 Generalized anxiety disorder ==

== ENCOUNTER → 2021-06-21 | Outpatient (CLI) | payer BC | LOC: WCC 13:06 | PROVIDERS: ATTEND Family Medicine | DX: E11.621 Type 2 diabetes mellitus with foot ulcer (principal); E11.40 Type 2 diabetes mellitus with diabetic neuropathy, unspecified; E11.65 Type 2 diabetes mellitus with hyperglycemia; M86.171 Other acute osteomyelitis, right ankle and foot; L97.416 Non-pressure chronic ulcer of right heel and midfoot with bone involvement without evidence of necrosis; J18.9 Pneumonia, unspecified organism; I70.203 Unspecified atherosclerosis of native arteries of extremities, bilateral legs; I10 Essential (primary) hypertension; D64.9 Anemia, unspecified; E78.49 Other hyperlipidemia; I25.10 Atherosclerotic heart disease of native coronary artery without angina pectoris; M14.671 Charcot's joint, right ankle and foot; E66.01 Morbid (severe) obesity due to excess calories; Z01.811 Encounter for preprocedural respiratory examination | CPT/HCPCS: 99213; G0277 ==

== ENCOUNTER 2021-12-17 15:29 | Inpatient (IN) | payer BC ==
[~2021-12-17] VITALS: Ht 188 cm; Wt 148.3 kg
[~2021-12-17 15:29] MED LIST changes: +FENTANYL CITRATE/PF 100MCG/2 ML INJ ONE; +MIDAZOLAM HCL 5 MG/ML VIAL ONE
[2021-12-17 15:58] LABS: BASOPHILS # (AUTO) 0.1 (0.0-0.1); BASOPHILS % 0.5 % (0.0-1.0); EOSINOPHILS # (AUTO) 0.2 (0.0-0.4); EOSINOPHILS % 2.4 % (0.0-6.0); HEMATOCRIT 42.8 % (38.2-49.6); HEMOGLOBIN 12.8 g/dL (14.0-18.0); LYMPHOCYTES % 30.7 % (18.0-39.1); MEAN CORPUSCULAR HEMOGLOBIN 24.6 pg (28-32); MEAN CORPUSCULAR HGB CONC 29.9 g/dL (31-35); MEAN CORPUSCULAR VOLUME 82.3 fL (81-99); MONOCYTES # (AUTO) 0.9 (0.2-0.8); MONOCYTES % 9.4 % (4.4-11.3); NEUTROPHILS # (AUTO) 5.5 (2.1-6.9); NEUTROPHILS % 56.5 % (38.7-80.0); PLATELET COUNT 299 x10e3/uL (140-360); RED CELL DISTRIBUTION WIDTH 15.4 % (11.7-14.4)
[2021-12-17 16:05] LABS: CLARITY,URINE HAZY (CLEAR); COLOR,URINE AMBER (YELLOW)
[2021-12-17 16:06] LABS: KETONES,URINE TRACE (NEGATIVE); LEUKOCYTE ESTERASE ,URINE NEGATIVE (NEGATIVE); NITRITE,URINE NEGATIVE (NEGATIVE); PROTEIN,URINE DIPSTICK 2+ (NEGATIVE); URINE UROBILINOGEN 0.2 mg/dL (0.2 - 1)
[2021-12-17 16:08] LABS: RBC,URINE 0-5 /HPF (0-5); WBC,URINE (MAN) 0-5 /HPF (0-5)
[2021-12-17 16:09] LABS: AMORPHOUS SEDIMENT,URINE FEW (FEW); BACTERIA,URINE FEW /HPF; EPITHELIAL CELLS,URINE FEW /LPF; HYALINE CASTS 0-1 (0-1)
[2021-12-17 16:22] LABS: CARBON DIOXIDE 23 mmol/L (22-29); CHLORIDE 104 mmol/L (98-107); POTASSIUM 3.7 mmol/L (3.5-5.1); SODIUM 143 mmol/L (136-145)
[2021-12-17 16:23] LABS: ALANINE AMINOTRANSFERASE < 6 IU/L (0-55); ALBUMIN 3.4 g/dL (3.5-5.0); ALBUMIN/GLOBULIN RATIO 0.6 (0.8-2.0); ALKALINE PHOSPHATASE 88 IU/L (40-150); ANION GAP 19.7 mmol/L (8-16); BLOOD UREA NITROGEN 16 mg/dL (7-26); BUN/CREATININE RATIO 12 (6-25); CALCIUM 9.6 mg/dL (8.4-10.2); CREATINE KINASE 57 IU/L (30-200); CREATININE, SERUM 1.29 mg/dL (0.72-1.25); GLUCOSE 94 mg/dL (74-118)
[2021-12-17] MEDS ORDERED: IOPAMIDOL 370 MG/ML 100 ML INFUS..BTL INJ ONE (16:40)
[2021-12-17] MEDS ORDERED: SODIUM CHLORIDE 0.9% 1000ML 1,000 ML IV STA (16:56)
[2021-12-17] MEDS ORDERED: ONDANSETRON HCL INJ 2MG/ML 2ML 2 MG/ML VIAL IV STA (16:56)
[2021-12-17] MEDS ORDERED: Morphine 4mg INJECTION 4 MG/ML INJ IV STA (16:56)
[2021-12-17] MEDS ORDERED: ONDANSETRON HCL INJ 2MG/ML 2ML 2 MG/ML VIAL IV PRN (17:30)
[2021-12-17] MEDS: SODIUM CHLORIDE 0.9% 1000ML 1,000 ML IV SCH (17:32)
[2021-12-17] MEDS ORDERED: LYRICA150 MG PO (20:56)
[2021-12-17] MEDS ORDERED: BENICAR20 MG PO (20:56)
[2021-12-17] MEDS ORDERED: HYDROCODON-ACE1 EAC9 PO (20:56)
[2021-12-17] MEDS ORDERED: SEMGLEE (Y100 UNIT/1 SQ (20:56)
[2021-12-17 21:00] VITALS: BP 135/54
[2021-12-17 21:03] VITALS: BP 155/67
[2021-12-17 22:06] VITALS: BP 155/67
[2021-12-17] MEDS: Morphine 4mg INJECTION 4 MG/ML INJ IV PRN (22:29)
[2021-12-18] MEDS ORDERED: METOCLOPRAMIDE HCL 10 MG/2ML VIAL IV ONE (00:50)
[2021-12-18 00:52] VITALS: BP 146/77
[2021-12-18] MEDS: SODIUM CHLORIDE 0.9% 1000ML 1,000 ML IV SCH ×2 (01:30→08:49)
[2021-12-18] MEDS: Morphine 4mg INJECTION 4 MG/ML INJ IV PRN ×4 (02:49→13:56)
[2021-12-18 04:00] VITALS: BP 135/72
[2021-12-18] MEDS: METOCLOPRAMIDE HCL 10 MG/2ML VIAL IV SCH ×2 (08:04→11:06)
[2021-12-18 09:03] VITALS: BP 149/92
[2021-12-18 09:56] VITALS: BP 149/92
[2021-12-18 11:54] VITALS: BP 126/72
[2021-12-18] MEDS ORDERED: PANTOPRAZOLE SO40 MG PO (13:36)
[2021-12-18] MEDS ORDERED: REGLAN10 MG PO (13:36)
[2021-12-18 13:55] LABS: BASOPHILS # (AUTO) 0.1 (0.0-0.1); BASOPHILS % 0.7 % (0.0-1.0); EOSINOPHILS # (AUTO) 0.2 (0.0-0.4); EOSINOPHILS % 2.8 % (0.0-6.0); HEMOGLOBIN 10.7 g/dL (14.0-18.0); LYMPHOCYTES # (AUTO) 2.2 (1.0-3.2); LYMPHOCYTES % 25.6 % (18.0-39.1); MEAN CORPUSCULAR HEMOGLOBIN 25.1 pg (28-32); MEAN CORPUSCULAR HGB CONC 29.7 g/dL (31-35); MEAN CORPUSCULAR VOLUME 84.3 fL (81-99); MONOCYTES # (AUTO) 0.8 (0.2-0.8); MONOCYTES % 8.7 % (4.4-11.3); NEUTROPHILS # (AUTO) 5.3 (2.1-6.9); NEUTROPHILS % 61.7 % (38.7-80.0); PLATELET COUNT 196 x10e3/uL (140-360); RED BLOOD COUNT 4.27 x10e6/uL (4.3-5.7); RED CELL DISTRIBUTION WIDTH 15.4 % (11.7-14.4)
[2021-12-18 14:14] LABS: ALBUMIN 2.9 g/dL (3.5-5.0); ALBUMIN/GLOBULIN RATIO 0.7 (0.8-2.0); ALKALINE PHOSPHATASE 68 IU/L (40-150); ANION GAP 15.6 mmol/L (8-16); BLOOD UREA NITROGEN 11 mg/dL (7-26); BUN/CREATININE RATIO 10 (6-25); CALCIUM 8.6 mg/dL (8.4-10.2); CARBON DIOXIDE 22 mmol/L (22-29); CHLORIDE 105 mmol/L (98-107); CREATININE, SERUM 1.14 mg/dL (0.72-1.25); GLUCOSE 230 mg/dL (74-118); POTASSIUM 4.6 mmol/L (3.5-5.1); SODIUM 138 mmol/L (136-145)
[2021-12-18 14:20] LABS: ALANINE AMINOTRANSFERASE < 6 IU/L (0-55)
[2021-12-18 16:01] VITALS: BP 124/62
== END 2021-12-18 17:00 | disposition home or self-care (01) | DRG 395 ==
LOC: ER 15:32 → ERHOLD 17:19 → MED/SURG3 19:55
PROVIDERS: ADMIT Internal Medicine; ATTEND Internal Medicine
PROC: 0DB78ZX Excision of Stomach, Pylorus, Via Natural or Artificial Opening Endoscopic, Diagnostic (ICD-10-PCS; 2021-12-17)
PROC: 0DC58ZZ Extirpation of Matter from Esophagus, Via Natural or Artificial Opening Endoscopic (ICD-10-PCS; principal; 2021-12-17 18:40)
DX: T18.128A Food in esophagus causing other injury, initial encounter (principal); X58.XXXA Exposure to other specified factors, initial encounter; I10 Essential (primary) hypertension; E11.9 Type 2 diabetes mellitus without complications; I25.10 Atherosclerotic heart disease of native coronary artery without angina pectoris; Z88.0 Allergy status to penicillin; Z88.8 Allergy status to other drugs, medicaments and biological substances; Z88.1 Allergy status to other antibiotic agents; Z91.040 Latex allergy status; Z20.822 Contact with and (suspected) exposure to COVID-19; K29.70 Gastritis, unspecified, without bleeding; Z95.5 Presence of coronary angioplasty implant and graft; Z98.84 Bariatric surgery status
CPT/HCPCS: 0223U; 36415; 43235; 71260; 74176; 80053; 81001; 82550; 82553; 82948; 83690; 84484; 85025; 88304; 88305; 88312; 88342; 93005; 99285; J2250; J2270; J2405; J2765; J3010; J7030; Q9967

== ENCOUNTER 2023-12-30 15:08 | Inpatient (IN) | payer BC, OTHER ==
[~2023-12-30] VITALS: Ht 190.5 cm; Wt 140.2 kg
[~2023-12-30 15:08] MED LIST changes: +ACARBOSE50 MG PO; +ATORVASTATIN CA80 MG PO; +BENICAR20 MG PO; +CLOPIDOGREL75 MG PO; +DIAZEPAM10 MG PO; -FENTANYL CITRATE/PF 100MCG/2 ML INJ ONE; +FUROSEMIDE40 MG PO; +HUMALOG MI100 UNIT/2 SQ; +HUMALOG100 UNIT/3 SQ; +HYDROCODON-ACE1 EAC9 PO; +JANUVIA100 MG PO; +JARDIANCE25 MG PO; +LYRICA150 MG PO; +METFORMIN HCL1000 MG PO; -MIDAZOLAM HCL 5 MG/ML VIAL ONE; +MIRALAX17 GM PO; +OLMESARTAN-HCT1 EAC2 PO; +ONDANSETRON ODT4 MG PO; +OXYCODONE 5 MG PO; +OXYCONTIN10 MG PO; +OZEMPIC1 MG/0.71 SQ; +PANTOPRAZOLE SO40 MG PO; +PROVENTIL HFA6.7 GM INH; +REGLAN10 MG PO; +SEMGLEE (Y100 UNIT/1 SQ; +SPIRIVA RESPIMAT4 GM; +SPIRIVA RESPIMAT4 GM INH; +SPIRONOLACTONE1 EACH PO; +TRAZODONE HCL50 MG PO; +VALIUM10 MG PO
[2023-12-30 15:43] LABS: BASOPHILS # (AUTO) 0.1 (0.0-0.1); BASOPHILS % 0.3 % (0.0-1.0); HEMATOCRIT 31.4 % (38.2-49.6); HEMOGLOBIN 10.1 g/dL (14.0-18.0); LYMPHOCYTES # (AUTO) 1.1 (1.0-3.2); LYMPHOCYTES % 4.9 % (18.0-39.1); MEAN CORPUSCULAR HEMOGLOBIN 25.8 pg (28-32); MEAN CORPUSCULAR HGB CONC 32.2 g/dL (31-35); MEAN CORPUSCULAR VOLUME 80.3 fL (81-99); MONOCYTES # (AUTO) 2.3 (0.2-0.8); MONOCYTES % 10.3 % (4.4-11.3); NEUTROPHILS # (AUTO) 17.8 (2.1-6.9); NEUTROPHILS % 80.1 % (38.7-80.0); PLATELET COUNT 434 x10e3/uL (140-360); RED BLOOD COUNT 3.91 x10e6/uL (4.3-5.7); RED CELL DISTRIBUTION WIDTH 13.8 % (11.7-14.4); WHITE BLOOD COUNT 22.26 x10e3/uL (4.8-10.8)
[2023-12-30] MEDS ORDERED: SODIUM CHLORIDE 0.9% 1000ML 1,000 ML IV SCH (15:45)
[2023-12-30] MEDS: SODIUM CHLORIDE 0.9% 1000ML 1,000 ML IV SCH (15:48)
[2023-12-30] MEDS: Morphine 4mg INJECTION 4 MG/ML INJ IV PRN (15:51)
[2023-12-30] MEDS: ONDANSETRON HCL INJ 2MG/ML 2ML 2 MG/ML VIAL IV PRN (15:51)
[2023-12-30] MEDS: CLINDAMYCIN 600MG / 50ML 50 ML IV SCH (16:29)
[2023-12-30 16:33] LABS: ALBUMIN 2.3 g/dL (3.5-5.0); ALBUMIN/GLOBULIN RATIO 0.5 (0.8-2.0); ANION GAP 16.1 mmol/L (8-16); BILIRUBIN,TOTAL 0.5 mg/dL (0.2-1.2); CALCIUM 9.1 mg/dL (8.4-10.2); CREATININE, SERUM 3.21 mg/dL (0.72-1.25); TOTAL PROTEIN 6.9 g/dL (6.5-8.1)
[2023-12-30 16:35] LABS: POTASSIUM 5.1 mmol/L (3.5-5.1)
[2023-12-30 17:24] VITALS: PULSE 77; RESP 18; TEMP 98.7
[2023-12-30 18:39] LABS: LYMPHOCYTES % (MANUAL) 5 % (19-48); MONOCYTES % (MANUAL) 12 % (3.4-9.0); NEUTROPHILS % (MANUAL) 83 % (40-74); PLATELET ESTIMATE ADEQUATE; PLATELET MORPHOLOGY COMMENT NORMAL; RBC MORPHOLOGY COMMENT NORMAL
[2023-12-30 19:55] VITALS: PULSE 135; RESP 22; O2SAT 100
[2023-12-30 20:00] VITALS: BP 100/89; PULSE 71; RESP 20; TEMP 97.4; O2SAT 100
[2023-12-30 21:00] VITALS: BP 100/89; PULSE 71; RESP 20; TEMP 97.4; O2SAT 100
[2023-12-31] VITALS (10 sets, daily range): BP systolic 104–131; BP diastolic 53–87; PULSE 64–123; RESP 19–20; TEMP 97.3–99.3; O2SAT 89–100
[2023-12-31] MEDS: CLINDAMYCIN 600MG / 50ML 50 ML IV SCH (00:30)
[2023-12-31 07:34] LABS: BASOPHILS # (AUTO) 0.1 (0.0-0.1); BASOPHILS % 0.5 % (0.0-1.0); EOSINOPHILS # (AUTO) 0.3 (0.0-0.4); EOSINOPHILS % 1.2 % (0.0-6.0); HEMATOCRIT 30.7 % (38.2-49.6); HEMOGLOBIN 9.4 g/dL (14.0-18.0); LYMPHOCYTES # (AUTO) 2.1 (1.0-3.2); LYMPHOCYTES % 10.4 % (18.0-39.1); MEAN CORPUSCULAR HEMOGLOBIN 25.6 pg (28-32); MEAN CORPUSCULAR HGB CONC 30.6 g/dL (31-35); MEAN CORPUSCULAR VOLUME 83.7 fL (81-99); MONOCYTES # (AUTO) 2.3 (0.2-0.8); MONOCYTES % 11.2 % (4.4-11.3); NEUTROPHILS # (AUTO) 14.7 (2.1-6.9); NEUTROPHILS % 72.9 % (38.7-80.0); PLATELET COUNT 365 x10e3/uL (140-360); RED BLOOD COUNT 3.67 x10e6/uL (4.3-5.7); RED CELL DISTRIBUTION WIDTH 13.7 % (11.7-14.4); WHITE BLOOD COUNT 20.13 x10e3/uL (4.8-10.8)
[2023-12-31 08:00] LABS: ANION GAP 17.4 mmol/L (8-16); CALCIUM 9.1 mg/dL (8.4-10.2); CREATININE, SERUM 2.48 mg/dL (0.72-1.25); POTASSIUM 4.4 mmol/L (3.5-5.1)
[2023-12-31 09:54] LABS: HYPOCHROMASIA SLIGHT; LYMPHOCYTES % (MANUAL) 13 % (19-48); MONOCYTES % (MANUAL) 14 % (3.4-9.0); NEUTROPHILS % (MANUAL) 73 % (40-74); PLATELET ESTIMATE ADEQUATE; PLATELET MORPHOLOGY COMMENT NORMAL; RBC MORPHOLOGY COMMENT NORMAL
[2023-12-31] MEDS ORDERED: ALBUTEROL 90 MCG/ACT INHALER INH PRN (13:45)
[2023-12-31] MEDS ORDERED: TRAZODONE HCL 50 MG TAB PO PRN (13:45)
[2023-12-31] MEDS ORDERED: NALOXONE HCL INJ 0.4 MG/ML AMP IV PRN (13:45)
[2023-12-31] MEDS ORDERED: DEXTROSE 50% SYRINGE 50 ML IV PRN (13:45)
[2023-12-31] MEDS: PREGABALIN 75 MG CAP PO SCH (15:00)
[2023-12-31] MEDS: ACARBOSE 50 MG PO SCH (15:00)
[2023-12-31] MEDS: HYDROCODONE/APAP 10MG-325MG TAB PO SCH (15:26)
[2023-12-31] MEDS ORDERED: Vancomycin IV 1 GM in SODIUM CHLORIDE 0.9% 250ML 250 ML IV ONE (15:45)
[2023-12-31] MEDS: INSULIN REGULAR, HUMAN 100 UNIT/1 ML SQ SCH (16:40)
[2023-12-31] MEDS: POLYETHYLENE GLYCOL 3350 17 GM PACK PO SCH (17:42)
[2023-12-31] MEDS: LACTATED RINGER'S 1,000 ML INJ SCH (17:43)
[2023-12-31] MEDS: ATORVASTATIN 40 MG TAB PO SCH (21:13)
[2023-12-31] MEDS: DIAZEPAM 5 MG TAB PO SCH (21:14)
[2024-01-01] VITALS (12 sets, daily range): BP systolic 86–122; BP diastolic 45–64; PULSE 67–85; RESP 17–20; TEMP 97–100.4; O2SAT 95–100
[2024-01-01] MEDS: TIOTROPIUM 18 MCG INH POWDER INH SCH (06:00)
[2024-01-01 06:49] LABS: BASOPHILS # (AUTO) 0.1 (0.0-0.1); BASOPHILS % 0.4 % (0.0-1.0); EOSINOPHILS # (AUTO) 0.4 (0.0-0.4); HEMATOCRIT 25.9 % (38.2-49.6); LYMPHOCYTES # (AUTO) 1.8 (1.0-3.2); LYMPHOCYTES % 10.6 % (18.0-39.1); MEAN CORPUSCULAR HEMOGLOBIN 25.9 pg (28-32); MEAN CORPUSCULAR HGB CONC 31.3 g/dL (31-35); MEAN CORPUSCULAR VOLUME 82.7 fL (81-99); MONOCYTES # (AUTO) 1.6 (0.2-0.8); MONOCYTES % 9.6 % (4.4-11.3); NEUTROPHILS # (AUTO) 12.3 (2.1-6.9); NEUTROPHILS % 72.1 % (38.7-80.0); RED BLOOD COUNT 3.13 x10e6/uL (4.3-5.7); RED CELL DISTRIBUTION WIDTH 13.9 % (11.7-14.4)
[2024-01-01 06:53] LABS: HEMOGLOBIN 8.1 g/dL (14.0-18.0); PLATELET COUNT 246 x10e3/uL (140-360)
[2024-01-01 07:15] LABS: ANION GAP 13.7 mmol/L (8-16); CALCIUM 8.3 mg/dL (8.4-10.2); CREATININE, SERUM 2.46 mg/dL (0.72-1.25); POTASSIUM 4.7 mmol/L (3.5-5.1)
[2024-01-01] MEDS: PANTOPRAZOLE SOD 40 MG TABEC PO SCH (08:42)
[2024-01-01] MEDS ORDERED: HYDROCHLOROTHIAZIDE 25 MG TAB PO SCH (09:00)
[2024-01-01] MEDS ORDERED: FUROSEMIDE 40 MG TAB PO SCH (09:00)
[2024-01-01] MEDS ORDERED: [UNRECOGNIZED DRUG - OTHER] PO SCH (09:00)
[2024-01-01] MEDS: OLMESARTAN 20 MG TAB PO SCH (09:00)
[2024-01-01] MEDS: CLOPIDOGREL BISULFATE 75 MG TAB PO SCH (09:13)
[2024-01-01] MEDS: SPIRONOLACTONE 25 MG TAB PO SCH (09:13)
[2024-01-01] MEDS: ASPIRIN 81 MG CHEW TAB PO SCH (09:14)
[2024-01-01] MEDS: HYDROCHLOROTHIAZIDE 25 MG TAB PO SCH (09:14)
[2024-01-01 09:57] LABS: FERRITIN 311.38 ng/mL (21.81-274.66)
[2024-01-01] MEDS: ASCORBIC ACID 500 MG TAB PO SCH (12:37)
[2024-01-01] MEDS: FERROUS SULFATE 325 MG TAB PO SCH (12:38)
[2024-01-01] MEDS: CYANOCOBALAMIN INJ 1,000 MCG/ML VIAL IM ONE (12:38)
[2024-01-01] MEDS: LINEZOLID 600 MG/D5W 300ML 300 ML IV SCH (12:38)
[2024-01-01 13:31] LABS: FOLATE 3.3 ng/mL (7.0-15.4)
[2024-01-01] MEDS: FOLIC ACID 1 MG TAB PO ONE (15:33)
[2024-01-01] MEDS ORDERED: SERTRALINE HCL 50 MG TAB PO SCH (17:00)
[2024-01-01 17:22] LABS: BILIRUBIN,URINE NEGATIVE (NEGATIVE); CLARITY,URINE CLEAR (CLEAR); COLOR,URINE YELLOW (YELLOW); GLUCOSE, URINE NEGATIVE (NEGATIVE); KETONES,URINE NEGATIVE (NEGATIVE); LEUKOCYTE ESTERASE ,URINE NEGATIVE (NEGATIVE); NITRITE,URINE NEGATIVE (NEGATIVE); PH,URINE 5.5 (5 - 7); PROTEIN,URINE DIPSTICK NEGATIVE (NEGATIVE); URINE UROBILINOGEN 0.2 mg/dL (0.2 - 1)
[2024-01-01 17:25] LABS: BACTERIA,URINE FEW /HPF; EPITHELIAL CELLS,URINE FEW /LPF; RBC,URINE 0-5 /HPF (0-5); WBC,URINE (MAN) 0-5 /HPF (0-5)
[2024-01-01] MEDS ORDERED: SODIUM FERRIC GLUCONATE COMPLX 125 MG in SODIUM CHLORIDE 0.9% 100 ML IV SCH (17:30)
[2024-01-01] MEDS: EPOETIN ALFA-EPBX 10,000 UNIT/ML VIAL SC SCH (18:03)
[2024-01-01] MEDS: DIAZEPAM 5 MG TAB PO SCH (21:00)
[2024-01-01] MEDS: INSULIN GLARGINE 100 UNITS/ML VIAL SQ SCH (21:20)
[2024-01-02] VITALS (11 sets, daily range): BP systolic 106–157; BP diastolic 47–71; PULSE 66–99; RESP 18–22; TEMP 98.3–102.1; O2SAT 95–99
[2024-01-02 06:09] LABS: BASOPHILS # (AUTO) 0.1 (0.0-0.1); BASOPHILS % 0.7 % (0.0-1.0); EOSINOPHILS # (AUTO) 0.5 (0.0-0.4); EOSINOPHILS % 3.4 % (0.0-6.0); HEMOGLOBIN 8.6 g/dL (14.0-18.0); LYMPHOCYTES # (AUTO) 1.9 (1.0-3.2); LYMPHOCYTES % 12.4 % (18.0-39.1); MEAN CORPUSCULAR HEMOGLOBIN 25.5 pg (28-32); MEAN CORPUSCULAR HGB CONC 30.7 g/dL (31-35); MEAN CORPUSCULAR VOLUME 83.1 fL (81-99); MONOCYTES # (AUTO) 1.6 (0.2-0.8); MONOCYTES % 10.7 % (4.4-11.3); NEUTROPHILS # (AUTO) 10.2 (2.1-6.9); NEUTROPHILS % 67.3 % (38.7-80.0); PLATELET COUNT 413 x10e3/uL (140-360); RED BLOOD COUNT 3.37 x10e6/uL (4.3-5.7); RED CELL DISTRIBUTION WIDTH 13.9 % (11.7-14.4); WHITE BLOOD COUNT 15.19 x10e3/uL (4.8-10.8)
[2024-01-02 06:46] LABS: ANION GAP 13.7 mmol/L (8-16); CALCIUM 8.9 mg/dL (8.4-10.2); CREATININE, SERUM 2.04 mg/dL (0.72-1.25); POTASSIUM 4.7 mmol/L (3.5-5.1)
[2024-01-02] MEDS: FOLIC ACID 1 MG TAB PO SCH (09:00)
[2024-01-02] MEDS: CEFTRIAXONE 2 GM in SODIUM CHLORIDE 0.9% 100 ML IV SCH ×2 (09:00→20:21)
[2024-01-02] MEDS ORDERED: SODIUM FERRIC GLUCONATE COMPLX 125 MG in SODIUM CHLORIDE 0.9% 100 ML IV SCH (09:00)
[2024-01-02] MEDS: INSULIN GLARGINE 100 UNITS/ML VIAL SQ SCH (09:00)
[2024-01-02] MEDS ORDERED: ONDANSETRON HCL INJ 2MG/ML 2ML 2 MG/ML VIAL ONE (09:38)
[2024-01-02] MEDS ORDERED: LIDOCAINE HCL 2% LOCAL INJ 5 ML SDV VIAL INJ ONE (09:38)
[2024-01-02] MEDS ORDERED: EPHEDRINE SULFATE INJ 50 MG/ML VIAL ONE (09:38)
[2024-01-02] MEDS ORDERED: SEVOFLURANE INHAL SOLN 250 ML PEN BTL ONE (09:38)
[2024-01-02] MEDS ORDERED: PROPOFOL IV EMULSION 10 MG/ML 20 ML VIAL ONE (09:38)
[2024-01-02] MEDS ORDERED: BUPIVACAINE HCL 0.5% INJ 30 ML VIAL INJ ONE (09:48)
[2024-01-02] MEDS: Ampicillin INJ 2 GM in SODIUM CHLORIDE 0.9% 100 ML IV SCH (17:00)
[2024-01-02] MEDS ORDERED: MIDAZOLAM HCL 2 MG/2 ML VIAL ONE (19:09)
[2024-01-02] MEDS ORDERED: Morphine 10mg syringe 10 MG/ML INJ ONE (19:09)
[2024-01-02] MEDS: CEFEPIME HCL 1 GM VIAL ONE (19:37)
[2024-01-02] MEDS: SODIUM CHLORIDE 0.9% 100 ML ONE (19:38)
[2024-01-02] MEDS: ACETAMINOPHEN 325 MG TAB PO PRN (20:19)
[2024-01-02] MEDS ORDERED: Ampicillin INJ 2 GM in SODIUM CHLORIDE 0.9% 100 ML IV SCH (21:00)
[2024-01-03] VITALS (9 sets, daily range): BP systolic 100–147; BP diastolic 41–74; PULSE 72–107; RESP 18–22; TEMP 97.8–99; O2SAT 96–100
[2024-01-03 06:21] LABS: ANION GAP 16.2 mmol/L (8-16); CALCIUM 8.7 mg/dL (8.4-10.2); CREATININE, SERUM 1.64 mg/dL (0.72-1.25)
[2024-01-03 06:24] LABS: POTASSIUM 5.2 mmol/L (3.5-5.1)
[2024-01-04] VITALS (10 sets, daily range): BP systolic 96–155; BP diastolic 54–96; PULSE 68–78; RESP 18–22; TEMP 97–98.7; O2SAT 94–100
[2024-01-04 06:13] LABS: BASOPHILS # (AUTO) 0.1 (0.0-0.1); BASOPHILS % 0.3 % (0.0-1.0); EOSINOPHILS # (AUTO) 0.7 (0.0-0.4); HEMATOCRIT 26.6 % (38.2-49.6); HEMOGLOBIN 8.1 g/dL (14.0-18.0); LYMPHOCYTES % 5.6 % (18.0-39.1); MEAN CORPUSCULAR HEMOGLOBIN 25.7 pg (28-32); MEAN CORPUSCULAR HGB CONC 30.5 g/dL (31-35); MEAN CORPUSCULAR VOLUME 84.4 fL (81-99); MONOCYTES # (AUTO) 1.2 (0.2-0.8); MONOCYTES % 7.3 % (4.4-11.3); NEUTROPHILS # (AUTO) 13.4 (2.1-6.9); NEUTROPHILS % 78.7 % (38.7-80.0); PLATELET COUNT 375 x10e3/uL (140-360); RED BLOOD COUNT 3.15 x10e6/uL (4.3-5.7); WHITE BLOOD COUNT 16.96 x10e3/uL (4.8-10.8)
[2024-01-04 06:40] LABS: CALCIUM 8.5 mg/dL (8.4-10.2); CREATININE, SERUM 1.46 mg/dL (0.72-1.25)
[2024-01-04] MEDS: Morphine 4mg INJECTION 4 MG/ML INJ IV PRN (15:18)
[2024-01-04] MEDS: OXYCODONE/ACETAMINOPHEN 5-325 1 EACH TABLET PO SCH (16:26)
[2024-01-04] MEDS: MORPHINE SULFATE 5 MG/ML VIAL IV PRN (18:27)
[2024-01-05] VITALS (9 sets, daily range): BP systolic 112–146; BP diastolic 52–89; PULSE 66–93; RESP 18–22; TEMP 97.5–98.5; O2SAT 93–100
[2024-01-05] MEDS: DAPTOMYCIN 500mg 10ML 1,000 MG in SODIUM CHLORIDE 0.9% 100 ML IV SCH (17:19)
[2024-01-05] MEDS: OXYCODONE/ACETAMINOPHEN 5-325 1 EACH TABLET PO SCH (20:52)
[2024-01-05] MEDS: Morphine 10mg syringe 10 MG/ML INJ IV PRN (22:24)
[2024-01-06] VITALS (9 sets, daily range): BP systolic 112–137; BP diastolic 52–60; PULSE 64–79; RESP 18–20; TEMP 98.5–99.5; O2SAT 94–100
[2024-01-06] MEDS: OXYCODONE/ACETAMINOPHEN 5-325 1 EACH TABLET PO SCH (02:06)
[2024-01-06 10:22] LABS: BASOPHILS # (AUTO) 0.1 (0.0-0.1); BASOPHILS % 0.4 % (0.0-1.0); EOSINOPHILS # (AUTO) 0.6 (0.0-0.4); EOSINOPHILS % 3.7 % (0.0-6.0); HEMATOCRIT 25.5 % (38.2-49.6); LYMPHOCYTES # (AUTO) 1.6 (1.0-3.2); LYMPHOCYTES % 10.3 % (18.0-39.1); MEAN CORPUSCULAR HEMOGLOBIN 25.6 pg (28-32); MEAN CORPUSCULAR HGB CONC 30.2 g/dL (31-35); MEAN CORPUSCULAR VOLUME 84.7 fL (81-99); MONOCYTES # (AUTO) 1.3 (0.2-0.8); NEUTROPHILS # (AUTO) 11.4 (2.1-6.9); NEUTROPHILS % 71.7 % (38.7-80.0); PLATELET COUNT 463 x10e3/uL (140-360); RED BLOOD COUNT 3.01 x10e6/uL (4.3-5.7); RED CELL DISTRIBUTION WIDTH 14.2 % (11.7-14.4); WHITE BLOOD COUNT 15.85 x10e3/uL (4.8-10.8)
[2024-01-06 10:24] LABS: HEMOGLOBIN 7.7 g/dL (14.0-18.0)
[2024-01-06] MEDS: SODIUM CHLORIDE 0.9% 250ML 250 ML ONE (11:06)
[2024-01-06] MEDS: MUPIROCIN 2% OINT 22 GM TUBE NS SCH (17:05)
[2024-01-06] MEDS: Morphine 2mg Syringe 2 MG/ML SYR IV PRN (17:34)
[2024-01-07] VITALS (9 sets, daily range): BP systolic 114–137; BP diastolic 43–65; PULSE 65–70; RESP 17–20; TEMP 97.8–98.9; O2SAT 96–100
[2024-01-07 06:48] LABS: BASOPHILS # (AUTO) 0.1 (0.0-0.1); BASOPHILS % 0.4 % (0.0-1.0); EOSINOPHILS # (AUTO) 0.7 (0.0-0.4); EOSINOPHILS % 4.8 % (0.0-6.0); HEMATOCRIT 25.3 % (38.2-49.6); HEMOGLOBIN 7.4 g/dL (14.0-18.0); LYMPHOCYTES # (AUTO) 1.8 (1.0-3.2); LYMPHOCYTES % 12.1 % (18.0-39.1); MEAN CORPUSCULAR HGB CONC 29.2 g/dL (31-35); MEAN CORPUSCULAR VOLUME 85.5 fL (81-99); MONOCYTES # (AUTO) 1.2 (0.2-0.8); MONOCYTES % 7.7 % (4.4-11.3); NEUTROPHILS # (AUTO) 10.4 (2.1-6.9); NEUTROPHILS % 69.5 % (38.7-80.0); PLATELET COUNT 447 x10e3/uL (140-360); RED BLOOD COUNT 2.96 x10e6/uL (4.3-5.7); RED CELL DISTRIBUTION WIDTH 14.2 % (11.7-14.4); WHITE BLOOD COUNT 14.91 x10e3/uL (4.8-10.8)
[2024-01-07 07:06] LABS: ANION GAP 13.1 mmol/L (8-16); CALCIUM 8.1 mg/dL (8.4-10.2); CREATININE, SERUM 1.22 mg/dL (0.72-1.25); POTASSIUM 5.1 mmol/L (3.5-5.1)
[2024-01-07 10:13] LABS: EOSINOPHILS % (MANUAL) 2 % (0-7); LYMPHOCYTES % (MANUAL) 13 % (19-48); MONOCYTES % (MANUAL) 8 % (3.4-9.0); NEUTROPHILS % (MANUAL) 77 % (40-74); PLATELET ESTIMATE ADEQUATE; PLATELET MORPHOLOGY COMMENT NORMAL; RBC MORPHOLOGY COMMENT NORMAL
[2024-01-07] MEDS ORDERED: CEPACOL SORE THROAT LOZENGES PO PRN (23:45)
[2024-01-08] VITALS (8 sets, daily range): BP systolic 128–151; BP diastolic 55–94; PULSE 63–80; RESP 18–20; TEMP 98.1–99.3; O2SAT 91–100
[2024-01-08] MEDS: CEPACOL SORE THROAT LOZENGES PO ONE (02:11)
[2024-01-08 10:27] LABS: BASOPHILS # (AUTO) 0.1 (0.0-0.1); BASOPHILS % 0.5 % (0.0-1.0); EOSINOPHILS # (AUTO) 0.8 (0.0-0.4); EOSINOPHILS % 5.6 % (0.0-6.0); HEMATOCRIT 26.4 % (38.2-49.6); HEMOGLOBIN 7.9 g/dL (14.0-18.0); LYMPHOCYTES # (AUTO) 1.5 (1.0-3.2); MEAN CORPUSCULAR HEMOGLOBIN 25.3 pg (28-32); MEAN CORPUSCULAR HGB CONC 29.9 g/dL (31-35); MEAN CORPUSCULAR VOLUME 84.6 fL (81-99); MONOCYTES # (AUTO) 1.1 (0.2-0.8); MONOCYTES % 7.8 % (4.4-11.3); NEUTROPHILS # (AUTO) 9.4 (2.1-6.9); NEUTROPHILS % 69.8 % (38.7-80.0); PLATELET COUNT 423 x10e3/uL (140-360); RED BLOOD COUNT 3.12 x10e6/uL (4.3-5.7); RED CELL DISTRIBUTION WIDTH 14.3 % (11.7-14.4); WHITE BLOOD COUNT 13.48 x10e3/uL (4.8-10.8)
[2024-01-08 10:45] LABS: CALCIUM 8.4 mg/dL (8.4-10.2); CREATININE, SERUM 1.04 mg/dL (0.72-1.25)
[2024-01-08 11:49] LABS: BASOPHILS % (MANUAL) 1 % (0-1.5); EOSINOPHILS % (MANUAL) 1 % (0-7); LYMPHOCYTES % (MANUAL) 10 % (19-48); METAMYELOCYTES % (MANUAL) 1 % (0-0); MONOCYTES % (MANUAL) 5 % (3.4-9.0); MYELOCYTES % (MANUAL) 1 % (0-0); NEUTROPHILS % (MANUAL) 81 % (40-74); PLATELET ESTIMATE ADEQUATE; PLATELET MORPHOLOGY COMMENT NORMAL
[2024-01-08 11:50] LABS: RBC MORPHOLOGY COMMENT NORMAL
[2024-01-08] MEDS: Morphine 4mg INJECTION 4 MG/ML INJ IV PRN (17:41)
[2024-01-09] VITALS (9 sets, daily range): BP systolic 110–159; BP diastolic 54–88; PULSE 56–89; RESP 18–22; TEMP 97.4–98.5; O2SAT 95–100
[2024-01-09] MEDS ORDERED: FENTANYL CITRATE/PF 100MCG/2 ML INJ ONE (12:44)
[2024-01-09] MEDS ORDERED: BUPIVACAINE HCL 0.5% INJ 30 ML VIAL INJ ONE (12:54)
[2024-01-09] MEDS ORDERED: ACETAMINOPHEN 1000 MG/100 ML IV ONE (13:56)
[2024-01-09] MEDS ORDERED: PHENYLEPHRINE HCL 1% 10 MG/ML VIAL ONE (13:56)
[2024-01-09] MEDS ORDERED: PROPOFOL IV EMULSION 10 MG/ML 20 ML VIAL ONE (13:56)
[2024-01-09] MEDS ORDERED: ONDANSETRON HCL INJ 2MG/ML 2ML 2 MG/ML VIAL ONE (13:56)
[2024-01-09] MEDS ORDERED: SEVOFLURANE INHAL SOLN 250 ML PEN BTL ONE (13:56)
[2024-01-09] MEDS ORDERED: DEXAMETHASONE SOD PHOS INJ 4 MG/ML SDV ONE (13:56)
[2024-01-09] MEDS ORDERED: LIDOCAINE HCL 2% LOCAL INJ 5 ML SDV VIAL INJ ONE (13:56)
[2024-01-09] MEDS: HYDROMORPHONE 1MG/1ML INJ ONE (14:01)
[2024-01-09] MEDS: Morphine 2mg Syringe 2 MG/ML SYR ONE (14:18)
[2024-01-09] MEDS: OXYCODONE HCL IR 15 MG TAB PO PRN (14:49)
[2024-01-09] MEDS: Morphine 2mg Syringe 2 MG/ML SYR IV PRN (22:50)
[2024-01-10] VITALS (8 sets, daily range): BP systolic 138–147; BP diastolic 68–83; PULSE 51–75; RESP 18–20; TEMP 97.7–97.9; O2SAT 96–100
[2024-01-10 05:54] LABS: BASOPHILS % 0.3 % (0.0-1.0); EOSINOPHILS % 0.1 % (0.0-6.0); HEMATOCRIT 25.4 % (38.2-49.6); HEMOGLOBIN 7.5 g/dL (14.0-18.0); LYMPHOCYTES # (AUTO) 1.2 (1.0-3.2); LYMPHOCYTES % 7.7 % (18.0-39.1); MEAN CORPUSCULAR HEMOGLOBIN 25.3 pg (28-32); MEAN CORPUSCULAR HGB CONC 29.5 g/dL (31-35); MEAN CORPUSCULAR VOLUME 85.5 fL (81-99); MONOCYTES % 6.3 % (4.4-11.3); NEUTROPHILS # (AUTO) 12.4 (2.1-6.9); NEUTROPHILS % 82.9 % (38.7-80.0); PLATELET COUNT 474 x10e3/uL (140-360); RED BLOOD COUNT 2.97 x10e6/uL (4.3-5.7); RED CELL DISTRIBUTION WIDTH 13.9 % (11.7-14.4)
[2024-01-10 06:27] LABS: ANION GAP 13.1 mmol/L (8-16); CALCIUM 8.1 mg/dL (8.4-10.2); CREATININE, SERUM 1.05 mg/dL (0.72-1.25)
[2024-01-10 06:44] LABS: MAGNESIUM 3.4 MG/DL (1.3-2.1)
[2024-01-10 06:56] LABS: POTASSIUM 6.1 mmol/L (3.5-5.1)
[2024-01-10 07:06] LABS: PHOSPHORUS 2.9 MG/DL (2.3-4.7)
[2024-01-10] MEDS: Morphine 4mg INJECTION 4 MG/ML INJ IV PRN (09:53)
[2024-01-10] MEDS: FUROSEMIDE INJ 10 MG/ML 4 ML VIAL IV ONE (09:58)
[2024-01-10] MEDS: OXYCODONE HCL 10 MG TAB CR PO SCH (17:00)
[2024-01-11] VITALS (11 sets, daily range): BP systolic 118–149; BP diastolic 50–93; PULSE 60–89; RESP 18–20; TEMP 97.3–98.9; O2SAT 95–100
[2024-01-11 05:49] LABS: BASOPHILS # (AUTO) 0.1 (0.0-0.1); BASOPHILS % 0.5 % (0.0-1.0); EOSINOPHILS # (AUTO) 0.5 (0.0-0.4); EOSINOPHILS % 3.5 % (0.0-6.0); HEMATOCRIT 26.7 % (38.2-49.6); HEMOGLOBIN 7.8 g/dL (14.0-18.0); LYMPHOCYTES # (AUTO) 2.1 (1.0-3.2); LYMPHOCYTES % 16.2 % (18.0-39.1); MEAN CORPUSCULAR HEMOGLOBIN 25.2 pg (28-32); MEAN CORPUSCULAR HGB CONC 29.2 g/dL (31-35); MEAN CORPUSCULAR VOLUME 86.1 fL (81-99); MONOCYTES % 7.4 % (4.4-11.3); NEUTROPHILS # (AUTO) 9.2 (2.1-6.9); NEUTROPHILS % 69.9 % (38.7-80.0); PLATELET COUNT 488 x10e3/uL (140-360); WHITE BLOOD COUNT 13.11 x10e3/uL (4.8-10.8)
[2024-01-11 06:05] LABS: ANION GAP 15.2 mmol/L (8-16); CALCIUM 8.4 mg/dL (8.4-10.2); CREATININE, SERUM 1.08 mg/dL (0.72-1.25); MAGNESIUM 1.8 MG/DL (1.3-2.1)
[2024-01-11 06:20] LABS: POTASSIUM 5.2 mmol/L (3.5-5.1)
[2024-01-11] MEDS: ALTEPLASE RECOMBINANT 2 MG/2 ML VIAL IV PRN (09:10)
[2024-01-11] MEDS ORDERED: ALBUTEROL/IPRATROPIUM 3 ML NEB NEB PRN (11:45)
[2024-01-11] MEDS: ALBUTEROL/IPRATROPIUM 3 ML NEB NEB ONE (14:06)
[2024-01-11] MEDS: LINEZOLID 600 MG TAB PO SCH (18:21)
[2024-01-11] MEDS: DAPTOMYCIN 500mg 10ML 1,000 MG in SODIUM CHLORIDE 0.9% 100 ML IV SCH (21:00)
[2024-01-12] VITALS (7 sets, daily range): BP systolic 133–163; BP diastolic 48–69; PULSE 58–66; RESP 18–20; TEMP 98.2–98.7; O2SAT 95–100
[2024-01-12] MEDS: CEFTRIAXONE 2 GM in SODIUM CHLORIDE 0.9% 100 ML IV SCH (08:35)
[2024-01-12] MEDS: ALBUTEROL/IPRATROPIUM 3 ML NEB NEB ONE (08:45)
[2024-01-13] VITALS (9 sets, daily range): BP systolic 147–177; BP diastolic 56–93; PULSE 68–71; RESP 18–20; TEMP 97.7–99.5; O2SAT 94–100
[2024-01-13 06:09] LABS: CALCIUM 8.5 mg/dL (8.4-10.2); CREATININE, SERUM 0.94 mg/dL (0.72-1.25)
[2024-01-14] VITALS (10 sets, daily range): BP systolic 105–167; BP diastolic 55–76; PULSE 61–72; RESP 17–21; TEMP 96.9–98.8; O2SAT 96–100
[2024-01-15] VITALS (9 sets, daily range): BP systolic 117–169; BP diastolic 53–94; PULSE 57–73; RESP 18–21; TEMP 97–98.6; O2SAT 97–100
[2024-01-15 06:38] LABS: BASOPHILS # (AUTO) 0.1 (0.0-0.1); BASOPHILS % 1.1 % (0.0-1.0); EOSINOPHILS # (AUTO) 0.9 (0.0-0.4); EOSINOPHILS % 10.1 % (0.0-6.0); HEMATOCRIT 26.1 % (38.2-49.6); HEMOGLOBIN 7.6 g/dL (14.0-18.0); LYMPHOCYTES % 20.9 % (18.0-39.1); MEAN CORPUSCULAR HEMOGLOBIN 24.8 pg (28-32); MEAN CORPUSCULAR HGB CONC 29.1 g/dL (31-35); MEAN CORPUSCULAR VOLUME 85.3 fL (81-99); MONOCYTES # (AUTO) 1.1 (0.2-0.8); MONOCYTES % 11.4 % (4.4-11.3); NEUTROPHILS # (AUTO) 4.9 (2.1-6.9); NEUTROPHILS % 52.8 % (38.7-80.0); PLATELET COUNT 448 x10e3/uL (140-360); RED BLOOD COUNT 3.06 x10e6/uL (4.3-5.7); RED CELL DISTRIBUTION WIDTH 14.6 % (11.7-14.4); WHITE BLOOD COUNT 9.35 x10e3/uL (4.8-10.8)
[2024-01-15 07:08] LABS: ANION GAP 12.6 mmol/L (8-16); CALCIUM 8.3 mg/dL (8.4-10.2); CREATININE, SERUM 0.92 mg/dL (0.72-1.25); POTASSIUM 4.6 mmol/L (3.5-5.1)
[2024-01-15] MEDS ORDERED: ASCORBIC ACID500 MG PO (16:47)
[2024-01-15] MEDS ORDERED: ACETAMINOPHEN325 M1 PO (16:47)
[2024-01-15] MEDS ORDERED: ROXICODONE15 MG PO (16:47)
[2024-01-15] MEDS ORDERED: SORE THROAT LO1 EAC3 PO (16:47)
[2024-01-15] MEDS ORDERED: CEFTRIAXON2 GM/50 ML IVP (16:47)
[2024-01-15] MEDS ORDERED: Oxycodone Hcl PO (16:47)
[2024-01-15] MEDS ORDERED: ZYVOX600 MG PO (16:47)
[2024-01-15] MEDS ORDERED: ZOLOFT50 MG PO (16:47)
[2024-01-16] VITALS (7 sets, daily range): BP systolic 137–162; BP diastolic 59–70; PULSE 61–74; RESP 18–20; TEMP 97–98.6; O2SAT 95–100
== END 2024-01-16 11:01 | disposition home or self-care (01) | DRG 853 ==
LOC: ER 15:19 → ERHOLD 15:37 → MED/SURG2 18:19
PROVIDERS: ADMIT Internal Medicine; ATTEND Internal Medicine
PROC: 3E0333Z Introduction of Anti-inflammatory into Peripheral Vein, Percutaneous Approach (ICD-10-PCS; 2023-12-30)
PROC: 02HV33Z Insertion of Infusion Device into Superior Vena Cava, Percutaneous Approach (ICD-10-PCS; principal; 2023-12-31)
PROC: 0Y9N0ZZ Drainage of Left Foot, Open Approach (ICD-10-PCS; 2024-01-02)
PROC: 02HV33Z Insertion of Infusion Device into Superior Vena Cava, Percutaneous Approach (ICD-10-PCS; 2024-01-08)
PROC: 0JBR0ZZ Excision of Left Foot Subcutaneous Tissue and Fascia, Open Approach (ICD-10-PCS; 2024-01-09)
DX: A41.01 Sepsis due to Methicillin susceptible Staphylococcus aureus (principal); N17.0 Acute kidney failure with tubular necrosis; E87.1 Hypo-osmolality and hyponatremia; L02.612 Cutaneous abscess of left foot; L97.528 Non-pressure chronic ulcer of other part of left foot with other specified severity; L97.518 Non-pressure chronic ulcer of other part of right foot with other specified severity; M86.172 Other acute osteomyelitis, left ankle and foot; M86.471 Chronic osteomyelitis with draining sinus, right ankle and foot; E11.69 Type 2 diabetes mellitus with other specified complication; D52.9 Folate deficiency anemia, unspecified; E87.5 Hyperkalemia; D50.9 Iron deficiency anemia, unspecified; E11.621 Type 2 diabetes mellitus with foot ulcer; E11.610 Type 2 diabetes mellitus with diabetic neuropathic arthropathy; E11.22 Type 2 diabetes mellitus with diabetic chronic kidney disease; E11.42 Type 2 diabetes mellitus with diabetic polyneuropathy; E11.65 Type 2 diabetes mellitus with hyperglycemia; I12.9 Hypertensive chronic kidney disease with stage 1 through stage 4 chronic kidney disease, or unspecified chronic kidney disease; E78.49 Other hyperlipidemia; N18.31 Chronic kidney disease, stage 3a; I25.10 Atherosclerotic heart disease of native coronary artery without angina pectoris; E66.01 Morbid (severe) obesity due to excess calories; Z68.38 Body mass index [BMI] 38.0-38.9, adult; B95.2 Enterococcus as the cause of diseases classified elsewhere; F32.A Depression, unspecified; Z79.4 Long term (current) use of insulin; Z79.82 Long term (current) use of aspirin; Z79.02 Long term (current) use of antithrombotics/antiplatelets; Z79.84 Long term (current) use of oral hypoglycemic drugs; Z95.5 Presence of coronary angioplasty implant and graft; Z98.84 Bariatric surgery status; Z86.16 Personal history of COVID-19; Z88.0 Allergy status to penicillin; Z88.1 Allergy status to other antibiotic agents; Z88.8 Allergy status to other drugs, medicaments and biological substances; Z91.040 Latex allergy status; Z83.3 Family history of diabetes mellitus; Z82.49 Family history of ischemic heart disease and other diseases of the circulatory system
CPT/HCPCS: 36415; 36569; 36584; 71045; 71250; 78580; 80048; 80053; 80202; 81001; 82607; 82728; 82746; 82948; 83540; 83605; 83735; 84100; 84132; 84466; 85025; 85045; 87040; 87071; 87075; 87186; 87205; 93306; 93971; 94799; 96372; 97605; 97606; 99252; 99284; A9540; J0692; J0696; J1100; J1171; J1815; J1940; J2003; J2020; J2250; J2270; J2371; J2405; J2916; J2997; J3420; J7030; J7050

== ENCOUNTER → 2024-11-20 | Outpatient (REF) | payer BC ==
[~2024-11-20] MED LIST changes: +ACETAMINOPHEN325 M1 PO; +ASCORBIC ACID500 MG PO; +Oxycodone Hcl PO; +ROXICODONE15 MG PO; +SORE THROAT LO1 EAC3 PO; +ZOLOFT50 MG PO; +ZYVOX600 MG PO
== END ==
LOC: DX 12:17
PROVIDERS: ATTEND Internal Medicine Infectious Disease
DX: Z45.2 Encounter for adjustment and management of vascular access device (principal); M86.272 Subacute osteomyelitis, left ankle and foot
CPT/HCPCS: 36569; 71045